=== PATIENT | female | born 1975 | race Caucasian/White ===

== ENCOUNTER 2016-11-26 23:58 | Emergency (ER) | payer MEDICARE, MEDICAID ==
[2016-11-27] MEDS ORDERED: IBUPROFEN 600 MG TABLET PO STA (01:24)
[2016-11-27] MEDS ORDERED: IBUPROFEN 600 MG TABLET PO ONE (01:27)
== END 2016-11-27 01:32 | disposition home or self-care (01) ==
DX: S00.83XA Contusion of other part of head, initial encounter (principal); W20.1XXA Struck by object due to collapse of building, initial encounter; Y93.9 Activity, unspecified; Y92.008 Other place in unspecified non-institutional (private) residence as the place of occurrence of the external cause; Y99.9 Unspecified external cause status; K21.9 Gastro-esophageal reflux disease without esophagitis; F32.9 Major depressive disorder, single episode, unspecified; F20.9 Schizophrenia, unspecified; G89.29 Other chronic pain; M54.9 Dorsalgia, unspecified; Z79.899 Other long term (current) drug therapy
CPT/HCPCS: 99282; 99283; A9270

== ENCOUNTER 2017-06-02 15:07 | Emergency (ER) | payer MEDICARE, MEDICAID ==
[2017-06-02 15:13] VITALS: BP 148/100
[2017-06-02] MEDS ORDERED: LIDOCAINE VISCOUS 2% 15 ML UDC MM STA (15:32)
--- NOTE | 2017-06-02 15:34 | ED Physician Documentation ---
PD HPI HEENT - Stated complaint Stated Complaint: THROAT PX - Chief complaint Chief Complaint: Heent - History obtained from History obtained from: Patient, Family - History of Present Illness Timing - onset: How many days ago (3) Timing - duration: Days (3) Timing - details: Gradual onset, Still present Location: Throat Improves: Nothing Worsens: Swalllowing Associated symptoms: No: Fever, Congestion, Rhinorrhea, Trismus, Unable to swallow, Swollen nodes, Facial swelling, Headache, Cough Similar symptoms before: Has not had sx before Recently seen: Not recently seen - Additional information Additional information: 41 y/o female has developed pain in her throat about 3 days ago. She describes a sharp pain when she swallows and this has not let up. She feels this is deep in the throat and points to her lower neck. She has not had fever, cough or congestion. 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 : None HEENT: None Psych: Depression, Schizophrenia Musculoskeletal: Chronic back pain Derm: None - Past Surgical History Past Surgical History: Yes /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: Breast reduction - Present Medications Home Medications: Ambulatory Orders Medication Instructions Recorded Confirmed OLANZapine [ZyPREXA] 10 mg PO QD 02/10/13 06/02/17 Divalproex Sodium [Depakote] 40 mg PO BID 09/13/14 06/02/17 Omeprazole 1 tab PO DAILY 02/13/16 06/02/17 - Allergies Allergies/Adverse Reactions: Allergies Allergy/AdvReac Type Severity Reaction Status Date / Time No Known Drug Allergies Allergy Verified 11/27/16 00:04 - Social History Does the pt smoke?: No Smoking Status: Never smoker Does the pt drink ETOH?: No Does the pt have substance abuse?: No - Immunizations Immunizations are current?: Yes - POLST Patient has POLST: No PD ED PE NORMAL - Vitals Vital signs reviewed: Yes (hypertensive ) - General General: No acute distress, Well developed/nourished - HEENT HEENT: Atraumatic, PERRL, EOMI, Ears normal, Moist mucous membranes, Pharynx benign, Dentition benign - Neck Neck: Supple, no meningeal sign, No bony TTP, Thyroid normal - Cardiac Cardiac: RRR, No murmur - Respiratory Respiratory: No respiratory distress, Clear bilaterally - Abdomen Abdomen: Soft, Non tender - Back Back: No CVA TTP, No spinal TTP - Derm Derm: Normal color, Warm and dry, No rash - Extremities Extremities: No deformity, No edema - Neuro Neuro: No motor deficit, No sensory deficit - Psych Psych: Normal mood, Normal affect Results - Vitals Vitals: Vital Signs - 24 hr 06/02/17 15:11 Temperature 36.7 C Heart Rate 83 Respiratory 18 Rate Blood Pressure 148/100 H O2 Saturation 98 Oxygen O2 Source Room air PD MEDICAL DECISION MAKING - ED course Complexity details: reviewed results, re-evaluated patient, considered differential, d/w patient, d/w family ED course: 42-year-old schizophrenic female with a history of a pain in her throat when she swallows. She does not recall swallowing anything sharp or abrading her esophagus. She has had this same pain with swallowing without fever congestion or cough for the past 3 days. Here in the emergency department today she is come in and we have given her some viscous lidocaine this relieve the pain temporarily. She is able to describe the pain as being in the throat and points to the area behind the thyroid.My suspicion is that she has an esophageal abrasion and I am not able to get this directly from the history from her I am not able to get this as a history of strep throat or simple pharyngitis either. I suspect she has an esophageal abrasion I discussed with her that we do not have a good way to interrogate that area and we discussed a plan of watchful waiting. Departure - Departure Disposition: 01 Home, Self Care Clinical Impression: Esophageal abrasion Qualifiers: Encounter type: initial encounter Qualified Code(s): S27.818A - Other injury of esophagus (thoracic part), initial encounter Condition: Stable Instructions: ED Foreign Body Esophageal Rslv Follow-Up: Chacha Hardwick ARNP [Primary Care Provider] - Comments: Today we are not able to definitively diagnose the reason for the pain in your throat. The suspicion is that there is an abrasion to the esophagus and this will take several days to heal. Eat soft foods in the next several days and expect the pain to resolve spontaneously. If you have worsening pain or develop fever and cough return to the emergency department for reevaluation.
[2017-06-02] MEDS ORDERED: LIDOCAINE VISCOUS 2% 15 ML UDC MM ONE (15:41)
== END 2017-06-02 16:00 | disposition home or self-care (01) ==
LOC: ED 15:07
DX: S27.818A Other injury of esophagus (thoracic part), initial encounter (principal); X58.XXXA Exposure to other specified factors, initial encounter; K21.9 Gastro-esophageal reflux disease without esophagitis; F20.9 Schizophrenia, unspecified
CPT/HCPCS: 99283

== ENCOUNTER 2017-06-28 16:23 | Emergency (ER) | payer MEDICARE, MEDICAID ==
[2017-06-28 16:29] VITALS: BP 131/97
[2017-06-28] MEDS ORDERED: IBUPROFEN 800 MG TABLET PO STA (16:39)
[2017-06-28] MEDS ORDERED: diphenhydrAMINE 25 MG CAPSULE PO STA (16:39)
--- NOTE | 2017-06-28 16:40 | ED Physician Documentation ---
History of Present Illness - Stated complaint Stated Complaint: BEE STING - Chief complaint Chief Complaint: Wound - History obtained from History obtained from: Patient, Family - History of Present Illness Timing: Today, How many minutes ago (20) Pain level max: 5 Pain level now: 5 - Additonal information Additional information: Patient is a 42-year-old female who presents to the emergency department after sustaining a bee versus a wasp sting versus bite to the right third digit. Mild swelling and erythema. Increased pain. Happened approximately 20 minutes prior to arrival. Has not taken anything for the pain. Better with rest. Worse with movement. No respiratory difficulties. 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 - Present Medications Home Medications: Ambulatory Orders Medication Instructions Recorded Confirmed OLANZapine [ZyPREXA] 10 mg PO QD 02/10/13 06/02/17 Divalproex Sodium [Depakote] 40 mg PO BID 09/13/14 06/02/17 Omeprazole 1 tab PO DAILY 02/13/16 06/02/17 - Allergies Allergies/Adverse Reactions: Allergies Allergy/AdvReac Type Severity Reaction Status Date / Time No Known Drug Allergies Allergy Verified 11/27/16 00:04 - Social History Does the pt smoke?: No Smoking Status: Never smoker Does the pt drink ETOH?: No Does the pt have substance abuse?: No - Immunizations Immunizations are current?: Yes - POLST Patient has POLST: No PD ED PE NORMAL - Vitals Vital signs reviewed: Yes - General General: Alert and oriented X 3, No acute distress - Derm Derm: Warm and dry, No rash - Extremities Extremities: Other (R 3rd digit - mild swelling, erythema, FROM. NVI. ) - Neuro Neuro: Alert and oriented X 3 Results - Vitals Vitals: Vital Signs - 24 hr 06/28/17 16:27 Temperature 36.6 C Heart Rate 101 H Respiratory 16 Rate Blood Pressure 131/97 H O2 Saturation 98 Oxygen O2 Source Room air PD MEDICAL DECISION MAKING - ED course Complexity details: considered differential, d/w patient ED course: Patient with a bee sting to the right third digit. No acute finding of anaphylaxis. Given Benadryl and Motrin. Will continue supportive care and follow-up with her doctor. Appears to be a localized reaction. Patient and family counseled regarding signs and symptoms for which I believe and urgent re- evaluation would be necessary. Patient with good understanding of and agreement to plan and is comfortable going home at this time This document was made in part using voice recognition software. While efforts are made to proofread this document, sound alike and grammatical errors may occur. Departure - Departure Disposition: 01 Home, Self Care Clinical Impression: Bee sting Qualifiers: Encounter type: initial encounter Injury intent: accidental or unintentional Qualified Code(s): T63.441A - Toxic effect of venom of bees, accidental ( unintentional), initial encounter Condition: Good Instructions: ED Bite Insect Follow-Up: Chacha Hardwick ARNP [Primary Care Provider] - Within 1 week Comments: You can use Benadryl for any itching or swelling. You can use Tylenol or Motrin as needed for pain. Return if you worsen.
[2017-06-28] MEDS ORDERED: diphenhydrAMINE 25 MG CAPSULE PO ONE (16:50)
[2017-06-28] MEDS ORDERED: IBUPROFEN 800 MG TABLET PO ONE (16:50)
== END 2017-06-28 16:50 | disposition home or self-care (01) ==
LOC: ED 16:23
DX: T63.441A Toxic effect of venom of bees, accidental (unintentional), initial encounter (principal)
CPT/HCPCS: 99283; A9270

== ENCOUNTER 2017-12-27 21:03 | Emergency (ER) | payer MEDICARE, MEDICAID ==
[2017-12-27] MEDS ORDERED: MAG HYDROX/AL HYDROX/SIMETH 30 ML UDC PO STA (21:39)
[2017-12-27] MEDS ORDERED: FAMOTIDINE 20 MG TABLET PO STA (21:39)
[2017-12-27] MEDS ORDERED: ONDANSETRON 4 MG/2 ML VIAL IVP STA (21:39)
[2017-12-27] MEDS ORDERED: LIDOCAINE VISCOUS 2% 15 ML UDC MM STA (21:39)
[2017-12-27] MEDS ORDERED: SODIUM CHLORIDE 0.9% 1,000 ML IV ONE (21:39)
[2017-12-27] MEDS ORDERED: LORazepam 2 MG/ML VIAL IVP STA (22:00)
--- NOTE | 2017-12-27 22:25 | ED Physician Documentation ---
PD HPI ABD PAIN - Stated complaint Stated Complaint: VOMITING/DIZZINESS - Chief complaint Chief Complaint: Abd Pain - History obtained from History obtained from: Patient - History of Present Illness Timing - onset: Today Timing - details: Gradual onset, Still present Quality: Cramping, Aching, Sharp, Indigestion Location: Epigastric Worsened by: Eating, Palpation Associated symptoms: Nausea, Vomiting, Dizzy. No: Fever, Diarrhea, Constipation Similar symptoms before: Work up / diagnostics, Treatment Recently seen: Not recently seen - Additional information Additional information: Patient is a 42 year old female with a history of abdominal pain, gastritis and anxiety who is presenting to the emergency department for abdominal pain and vomiting. Patient has had this multiple times in the past but not in a long while. Patient denies any fever, chills, diarrhea, change in diet or sick contacts. Review of Systems Constitutional: denies: Fever, Chills Eyes: reports: Reviewed and negative Ears: reports: Reviewed and negative Nose: reports: Reviewed and negative Throat: reports: Reviewed and negative Cardiac: denies: Chest pain / pressure Respiratory: denies: Dyspnea, Cough GI: reports: Abdominal Pain, Nausea, Vomiting. 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 - Present Medications Home Medications: Ambulatory Orders Medication Instructions Recorded Confirmed OLANZapine [ZyPREXA] 10 mg PO QD 02/10/13 06/02/17 Divalproex Sodium [Depakote] 40 mg PO BID 09/13/14 06/02/17 Omeprazole 1 tab PO DAILY 02/13/16 06/02/17 Ondansetron Odt [Zofran] 4 mg TL Q6H PRN #20 tablet 12/28/17 Sucralfate [Carafate] 1 gm PO BID #100 ml 12/28/17 - Allergies Allergies/Adverse Reactions: Allergies Allergy/AdvReac Type Severity Reaction Status Date / Time No Known Drug Allergies Allergy Verified 11/27/16 00:04 - Social History Does the pt smoke?: No Smoking Status: Never smoker Does the pt drink ETOH?: No Does the pt have substance abuse?: No - Immunizations Immunizations are current?: Yes - POLST Patient has POLST: No PD ED PE NORMAL - General General: Alert and oriented X 3, No acute distress - HEENT HEENT: Atraumatic, PERRL - Neck Neck: Supple, no meningeal sign - Cardiac Cardiac: RRR - Respiratory Respiratory: No respiratory distress - Derm Derm: Normal color, No rash - Extremities Extremities: No deformity - Neuro Neuro: Alert and oriented X 3, No motor deficit, Normal speech Eye Opening: Spontaneous PD ED PE EXPANDED - HEENT HEENT: Dry mucous membranes - Abdomen Abdomen: Tender to palpation, Epigastric. No: Rebound, Guarding - Psych Psych: Other (flat affect) Results - Vitals Vitals: Vital Signs - 24 hr 12/27/17 12/27/17 21:05 22:48 Temperature 36.0 C L 36.9 C Heart Rate 88 84 Respiratory 18 15 Rate Blood Pressure 137/95 H 120/90 H O2 Saturation 97 99 Oxygen O2 Source Room air PD MEDICAL DECISION MAKING - ED course Complexity details: reviewed old records, reviewed results, re-evaluated patient , considered differential, d/w patient ED course: Patient was seen and examined at bedside. Patient was well appearing and in no acute distress. IV access was gained and patient was treated with ns bolus, zofran and ativan. Patient's nausea improved and she was treated with pepcid, maalox and viscous lidocaine. Upon re-evaluation patient was well appearing but stated that she still had pain. Patient was treated with toradol and carafate. Patient continued to have no episodes of emesis. patient again was well appearing but stated that she still had pain. Patient was asked if anything had worked for her in the past and she stated dilaudid. Patient was treated with tylenol. Patient remained calm and in no distress. ptaient was tolerating PO and was stable for dishcarge with outpatient follow up. Departure - Departure Disposition: 01 Home, Self Care Clinical Impression: Gastritis, Gastroesophageal reflux disease Condition: Good Instructions: ED Gastritis Follow-Up: Chacha Hardwick ARNP [Primary Care Provider] - Within 3 Days Prescriptions: Ondansetron Odt [Zofran] 4 mg TL Q6H PRN #20 tablet PRN Reason: Nausea / Vomiting Sucralfate [Carafate] 1 gm PO BID #100 ml Comments: Your symptoms today are likely secondary to gastritis. You should try eating a bland diet. You can take zofran as needed for nausea and vomiting. For the gastritis you can take pepcid, maalox, tylenol and carafate. You should follow up with your doctor on friday if your symptoms persist. You may return to the emergency department at any time for new, worsening or uncontrollable symptoms.
[2017-12-27] MEDS ORDERED: SUCRALFATE 1 GM/10 ML UDC PO STA (22:38)
[2017-12-27] MEDS ORDERED: KETOROLAC 60 MG/2 ML VIAL IVP STA (22:50)
[2017-12-27] MEDS ORDERED: DICYCLOMINE 10 MG CAPSULE PO STA (22:51)
[2017-12-27] MEDS ORDERED: PANTOPRAZOLE 40 MG VIAL IVP STA (22:51)
[2017-12-27] MEDS ORDERED: ACETAMINOPHEN 500 MG TABLET PO STA (23:57)
[2017-12-28 00:31] VITALS: BP 117/77
== END 2017-12-28 00:38 | disposition home or self-care (01) ==
LOC: ED 21:03
DX: K21.9 Gastro-esophageal reflux disease without esophagitis (principal); K29.70 Gastritis, unspecified, without bleeding
CPT/HCPCS: 96361; 96374; 96375; 99283; 99284; A9270; J2060

== ENCOUNTER 2018-01-06 08:00 | Outpatient (CLI) | payer MEDICARE, MEDICAID ==
[2018-01-06 19:48] LABS: CHOL/HDL RATIO 2.8 (<4.4); CHOLESTEROL 167 mg/dL; HDL CHOLESTEROL 59 mg/dL; LDL CHOLESTEROL,CALCULATED 76 mg/dL; LDL/HDL RATIO 1.3 (<4.4); VLDL CHOLESTEROL 32 mg/dL
== END 2018-01-06 08:01 ==
LOC: LAB.N 08:00
PROVIDERS: ATTEND Nurse Practitioner Gerontology
DX: Z79.899 Other long term (current) drug therapy (principal)
CPT/HCPCS: 36415; 80061; 83721

== ENCOUNTER 2018-04-29 11:57 | Emergency (ER) | payer MEDICARE, MEDICAID ==
[2018-04-29] MEDS ORDERED: MAG HYDROX/AL HYDROX/SIMETH 30 ML UDC PO STA (12:14)
[2018-04-29] MEDS ORDERED: LIDOCAINE VISCOUS 2% 15 ML UDC MM STA (12:14)
--- NOTE | 2018-04-29 12:17 | ED Physician Documentation ---
PD HPI CHEST PAIN - Stated complaint Stated Complaint: CHEST PX/SOA - Chief complaint Chief Complaint: Cardiac - History obtained from History obtained from: Patient, Family - History of Present Illness Timing - onset: Last night (This is a 42-year-old woman who has frequent episodes of recurrent vomiting. She started vomiting last night after eating a blueberry cup from [employer] and while vomiting symptoms developed sharp nonradiating left-sided anterior chest pain that is not worse with eating now or deep breathing. It does not radiate. She has never had it before. She denies pedal edema, control use, or recent travel. There is no cough. She has not vomited today.) Review of Systems Constitutional: denies: Fever, Chills Respiratory: denies: Dyspnea, Cough GI: reports: Nausea, Vomiting. 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 - Present Medications Home Medications: Ambulatory Orders Medication Instructions Recorded Confirmed OLANZapine [ZyPREXA] 10 mg PO QD 02/10/13 06/02/17 Divalproex Sodium [Depakote] 40 mg PO BID 09/13/14 06/02/17 Omeprazole 1 tab PO DAILY 02/13/16 06/02/17 Ondansetron Odt [Zofran] 4 mg TL Q6H PRN #20 tablet 12/28/17 Sucralfate [Carafate] 1 gm PO BID #100 ml 12/28/17 Cyclobenzaprine [Flexeril] 10 mg PO TID PRN #10 tablet 04/29/18 - Allergies Allergies/Adverse Reactions: Allergies Allergy/AdvReac Type Severity Reaction Status Date / Time No Known Drug Allergies Allergy Verified 11/27/16 00:04 - Social History Does the pt smoke?: No Smoking Status: Never smoker Does the pt drink ETOH?: No Does the pt have substance abuse?: No - Immunizations Immunizations are current?: Yes - POLST Patient has POLST: No PD ED PE NORMAL - Vitals Vital signs reviewed: Yes - General General: Alert and oriented X 3, No acute distress - HEENT HEENT: Pharynx benign - Neck Neck: Supple, no meningeal sign, No bony TTP - Cardiac Cardiac: RRR, No murmur, Other (Tender anterior left chest wall reproducing her pain) - Respiratory Respiratory: No respiratory distress, Clear bilaterally - Abdomen Abdomen: Non tender - Extremities Extremities: No edema, No calf tenderness / cord - Neuro Neuro: Alert and oriented X 3, Normal speech Results - Vitals Vitals: Vital Signs - 24 hr 04/29/18 04/29/18 11:59 12:20 Temperature 36.4 C L Heart Rate 86 90 Respiratory 16 18 Rate Blood Pressure 134/93 H 145/92 H O2 Saturation 98 96 Oxygen O2 Source Room air - EKG (time done) 1202 Rate: Rate (enter#) (90) Rhythm: NSR Rattan: Normal Intervals: Other (VA slightly short) QRS: Normal, Low voltage Ischemia: Non specific changes Computer interpretation: Agree with computer - Labs Labs: Laboratory Tests 04/29/18 04/29/18 04/29/18 12:24 12:24 12:24 WBC 6.8 RBC 5.08 Hgb 12.2 Hct 37.7 MCV 74.1 L MCH 23.9 L MCHC 32.3 RDW 16.4 H Plt Count 294 MPV 7.6 L Neut # (Auto) 3.6 Lymph # (Auto) 2.7 Graham # (Auto) 0.4 Eos # (Auto) 0.0 Baso # (Auto) 0.0 Absolute Nucleated RBC 0.00 Nucleated RBC % 0.0 Sodium 139 Potassium 3.9 Chloride 101 Carbon Dioxide 27 Anion Gap 11.0 BUN 8 Creatinine 0.7 Estimated GFR (MDRD) 91 Glucose 112 H Calcium 9.3 Total Bilirubin 1.1 H AST 33 ALT 33 Alkaline Phosphatase 83 Troponin I < 0.04 Total Protein 8.0 Albumin 4.4 Globulin 3.6 Albumin/Globulin Ratio 1.2 Lipase 26 - Rads (name of study) 2v chest Radiology: EMP read contemporaneously (NAD, DDD/DJD) PD MEDICAL DECISION MAKING - ED course ED course: 42-year-old woman with reproducible left anterior chest wall pain that started during vomiting last night. ACS is unlikely, a single troponin should be predictive given the time course as it has been constant since last night. Also concerning would be Boerhaave syndrome, although she does not seem in extremis, chest x-ray should be predictive as well. We will trial a GI cocktail. She really did not have much change with a GI cocktail, so I suspect she pulled something in her chest wall and she will be discharged on muscle relaxer. Her diagnostics were negative. - Sepsis Event Vital Signs: Vital Signs - 24 hr 04/29/18 04/29/18 11:59 12:20 Temperature 36.4 C L Heart Rate 86 90 Respiratory 16 18 Rate Blood Pressure 134/93 H 145/92 H O2 Saturation 98 96 Oxygen O2 Source Room air Departure - Departure Disposition: 01 Home, Self Care Clinical Impression: Chest wall pain Condition: Good Record reviewed to determine appropriate education?: Yes Instructions: ED Strain Chest Wall Prescriptions: Cyclobenzaprine [Flexeril] 10 mg PO TID PRN #10 tablet PRN Reason: Pain Comments: Your blood pressure was elevated today on check into the emergency department. This does not mean that you have hypertension, it is a common phenomenon to come to the emergency department and have elevated blood pressure. I recommend that you see your primary care physician within the week to have it rechecked when you are feeling better.
[2018-04-29 12:31] LABS: BASOPHILS % (AUTO) 0.6 %; HGB - HEMOGLOBIN 12.2 g/dL (12.0-16.0); LYMPHOCYTES # (AUTO) 2.7 10^3/uL (1.5-3.5); LYMPHOCYTES % (AUTO) 39.9 %; MEAN CORPUSCULAR HEMOGLOBIN 23.9 pg (27.0-31.0); MEAN CORPUSCULAR HGB CONC 32.3 g/dL (32.0-36.0); MEAN CORPUSCULAR VOLUME 74.1 fL (81.0-99.0); MEAN PLATELET VOLUME 7.6 fL (7.9-10.8); MONOCYTES # (AUTO) 0.4 10^3/uL (0.0-1.0); MONOCYTES % (AUTO) 6.3 %; NEUTROPHILS # (AUTO) 3.6 10^3/uL (1.5-6.6); NEUTROPHILS % (AUTO) 53.2 %; PLT - PLATELET COUNT 294 10^3/uL (130-450); RED BLOOD COUNT 5.08 10^6/uL (4.20-5.40); RED CELL DISTRIBUTION WIDTH 16.4 % (12.0-15.0); WHITE BLOOD COUNT 6.8 x10^3/uL (4.8-10.8)
[2018-04-29 12:39] LABS: ALBUMIN 4.4 g/dL (3.2-5.5); ALBUMIN/GLOBULIN RATIO 1.2 (1.0-2.2); BILIRUBIN,TOTAL 1.1 mg/dL (0.2-1.0); CALCIUM 9.3 mg/dL (8.5-10.3); CREATININE 0.7 mg/dL (0.4-1.0)
--- NOTE | 2018-04-29 12:57 | XRAY Report ---
Procedure Date: 04/29/2018 Accession Number: [id number] / [id number] Procedure: XR - Chest 2 View X-Ray CPT Code: 13356 FULL RESULT: EXAM: CHEST RADIOGRAPHY EXAM DATE: 04/29/2018 12:46 PM. CLINICAL HISTORY: Vomiting. Chest pain. COMPARISON: 11/24/2013. TECHNIQUE: 2 views. FINDINGS: Lungs/Pleura: No focal opacities evident. No pleural effusion. No pneumothorax. Normal volumes. Mediastinum: Heart size and mediastinal contour are within normal limits. Other: Degenerative changes of the thoracic spine. No acute osseous abnormalities. IMPRESSION: 1. No acute disease in the chest. RADIA
[2018-04-29 13:43] VITALS: BP 126/92
== END 2018-04-29 13:45 | disposition home or self-care (01) ==
LOC: ED 11:57
DX: R07.89 Other chest pain (principal); R03.0 Elevated blood-pressure reading, without diagnosis of hypertension
CPT/HCPCS: 36415; 71046; 80053; 83690; 84484; 85025; 93005; 99283; A9270

== ENCOUNTER 2018-05-20 01:14 | Emergency (ER) | payer MEDICARE, MEDICAID ==
[2018-05-20] MEDS ORDERED: MAG HYDROX/AL HYDROX/SIMETH 30 ML UDC PO STA (01:45)
[2018-05-20] MEDS ORDERED: ONDANSETRON ODT 4 MG TABLET TL STA (01:45)
[2018-05-20] MEDS ORDERED: LIDOCAINE VISCOUS 2% 15 ML UDC MM STA (01:45)
[2018-05-20] MEDS ORDERED: DICYCLOMINE 10 MG CAPSULE PO STA (02:39)
--- NOTE | 2018-05-20 02:43 | ED Physician Documentation ---
PD HPI ABD PAIN - Stated complaint Stated Complaint: VOMITING,CHEST PAIN - Chief complaint Chief Complaint: Abd Pain - History obtained from History obtained from: Patient - History of Present Illness Timing - onset: Today Timing - details: Gradual onset, Still present Quality: Sharp, Indigestion Location: Epigastric Radiation: Chest Worsened by: Eating Associated symptoms: Nausea, Vomiting, Chest pain. No: Diarrhea, Constipation Similar symptoms before: Work up / diagnostics, Treatment Recently seen: Not recently seen - Additional information Additional information: Patient is a 43 year old female with a history of GERD and gastritis who is presenting to the emergency department for nausea, vomiting and chest pain. patient reports 4 episodes of vomiting this morning and now she has some sub sternal chest pain and epigastric pain. Review of Systems Ten Systems: 10 systems reviewed and negative Constitutional: denies: Fever, Chills Cardiac: reports: Chest pain / pressure GI: reports: Abdominal Pain, Nausea, Vomiting. denies: Constipation, Diarrhea PD PAST MEDICAL HISTORY - Past Medical History Past Medical History: No Cardiovascular: None Respiratory: None Endocrine/Autoimmune: None GI: GERD DREDGE MATE: None : None HEENT: None Psych: Depression, Schizophrenia Musculoskeletal: Chronic back pain Derm: None - Past Surgical History Past Surgical History: Yes /DREDGE MATE: Breast reduction - Present Medications Home Medications: Ambulatory Orders Medication Instructions Recorded Confirmed OLANZapine [ZyPREXA] 10 mg PO QD 02/10/13 06/02/17 Divalproex Sodium [Depakote] 40 mg PO BID 09/13/14 06/02/17 Omeprazole 1 tab PO DAILY 02/13/16 06/02/17 Ondansetron Odt [Zofran] 4 mg TL Q6H PRN #20 tablet 12/28/17 Sucralfate [Carafate] 1 gm PO BID #100 ml 12/28/17 Cyclobenzaprine [Flexeril] 10 mg PO TID PRN #10 tablet 04/29/18 Dicyclomine [Bentyl] 10 mg PO QID #14 capsule 05/20/18 Ondansetron Odt [Zofran] 4 mg TL Q6H PRN #14 tablet 05/20/18 - Allergies Allergies/Adverse Reactions: Allergies Allergy/AdvReac Type Severity Reaction Status Date / Time No Known Drug Allergies Allergy Verified 05/20/18 01:21 - Social History Does the pt smoke?: No Smoking Status: Never smoker Does the pt drink ETOH?: No Does the pt have substance abuse?: No - Immunizations Immunizations are current?: Yes - POLST Patient has POLST: No PD ED PE NORMAL - Vitals Vital signs reviewed: Yes - General General: Alert and oriented X 3, No acute distress - HEENT HEENT: Atraumatic - Cardiac Cardiac: RRR, No murmur - Respiratory Respiratory: No respiratory distress, Clear bilaterally - Abdomen Abdomen: Soft - Derm Derm: Normal color, Warm and dry - Extremities Extremities: No deformity - Neuro Neuro: Alert and oriented X 3, No motor deficit, Normal speech Eye Opening: Spontaneous Motor: Obeys Commands Verbal: Oriented GCS Score: 15 PD ED PE EXPANDED - Abdomen Abdomen: Tender to palpation, Epigastric. No: Rebound, Guarding Results - Vitals Vitals: Vital Signs - 24 hr 05/20/18 01:18 Temperature 36.2 C L Heart Rate 94 Respiratory 17 Rate Blood Pressure 147/99 H O2 Saturation 96 Oxygen O2 Source Room air PD MEDICAL DECISION MAKING - ED course Complexity details: reviewed old records, reviewed results, re-evaluated patient , considered differential, d/w patient ED course: Patient was seen and examined at bedside. patient was in no distress. the chest pain was secondary to GI issues and not cardiac in nature. Patient was treated with zofran and subsequently maalox and viscous lidocaine. patient's pain resolved and she had no episodes of emesis. patient required no further work up and was stable for discharge with outpatient follow up. - Sepsis Event Vital Signs: Vital Signs - 24 hr 05/20/18 01:18 Temperature 36.2 C L Heart Rate 94 Respiratory 17 Rate Blood Pressure 147/99 H O2 Saturation 96 Oxygen O2 Source Room air Departure - Departure Disposition: 01 Home, Self Care Clinical Impression: Gastritis, Gastroesophageal reflux disease Condition: Good Instructions: ED GERD, ED Gastritis Follow-Up: Chacha Hardwick ARNP [Primary Care Provider] - Prescriptions: Dicyclomine [Bentyl] 10 mg PO QID #14 capsule Ondansetron Odt [Zofran] 4 mg TL Q6H PRN #14 tablet PRN Reason: Nausea / Vomiting Comments: Your symptoms today are being caused by gastritis and acid reflux. You should take the zofran as needed for nausea and maalox for the acid reflux. You can take tylenol for abdominal pain and bentyl for abdominal spasm. You should avoid spicey foods, and acidic foods and eat small meals. You should avoid eating before lying down. You should follow up with your doctor if your symptoms persist. You may return to the emergency department at any time for new, worsening or uncontrollable symptoms.
[2018-05-20 02:53] VITALS: BP 146/94
== END 2018-05-20 02:55 | disposition home or self-care (01) ==
LOC: ED 01:14
DX: K29.70 Gastritis, unspecified, without bleeding (principal); K21.9 Gastro-esophageal reflux disease without esophagitis
CPT/HCPCS: 99283; A9270; Q0162

== ENCOUNTER 2018-05-22 14:59 | Emergency (ER) | payer MEDICARE, MEDICAID ==
[2018-05-22] MEDS ORDERED: MAG HYDROX/AL HYDROX/SIMETH 30 ML UDC PO STA (15:18)
[2018-05-22] MEDS ORDERED: LIDOCAINE VISCOUS 2% 15 ML UDC MM STA (15:18)
[2018-05-22] MEDS ORDERED: SODIUM CHLORIDE 0.9% 1,000 ML IV ONE (15:19)
[2018-05-22] MEDS ORDERED: ONDANSETRON 4 MG/2 ML VIAL IVP STA (15:19)
--- NOTE | 2018-05-22 15:23 | ED Physician Documentation ---
PD HPI ABD PAIN - Stated complaint Stated Complaint: VOMITING - Chief complaint Chief Complaint: General - History obtained from History obtained from: Patient - History of Present Illness Timing - onset: How many days ago (2 or 3) Timing - details: Still present Quality: Pain Location: Epigastric Associated symptoms: Nausea, Vomiting. No: Fever, Diarrhea, Dysuria Similar symptoms before: Diagnosis (GERD) Recently seen: Emergency Dept (2 days ago.) - Additional information Additional information: The patient is a 43-year-old female who presents with vomiting that started 2 or 3 days ago and has persisted. She has had multiple episodes of vomiting today. She reports epigastric abdominal pain. She denies fever, diarrhea, or dysuria. She was seen here 2 days ago with similar symptoms. She was treated with Zofran and GI cocktail with improvement of her symptoms at that time. She was discharged with prescriptions for Zofran and Bentyl. She has been taking those medications without relief. Her past medical history is significant for gastroesophageal reflux, for which she is on omeprazole. Review of Systems Constitutional: denies: Fever Nose: denies: Congestion Throat: denies: Sore throat Cardiac: denies: Chest pain / pressure Respiratory: denies: Dyspnea, Cough GI: reports: Abdominal Pain, Nausea, Vomiting. denies: Diarrhea : reports: LMP (uncertain). denies: Dysuria, Vaginal bleeding Skin: denies: Rash Musculoskeletal: denies: Back pain Neurologic: denies: Headache PD PAST MEDICAL HISTORY - Past Medical History Cardiovascular: None Respiratory: None Endocrine/Autoimmune: None GI: GERD LINEMAN: None : None HEENT: None Psych: Depression, Schizophrenia Musculoskeletal: Chronic back pain Derm: None - Past Surgical History Past Surgical History: Yes /LINEMAN: Breast reduction - Present Medications Home Medications: Ambulatory Orders Medication Instructions Recorded Confirmed OLANZapine [ZyPREXA] 10 mg PO QD 02/10/13 06/02/17 Divalproex Sodium [Depakote] 40 mg PO BID 09/13/14 06/02/17 Omeprazole 1 tab PO DAILY 02/13/16 06/02/17 Ondansetron Odt [Zofran] 4 mg TL Q6H PRN #20 tablet 12/28/17 Sucralfate [Carafate] 1 gm PO BID #100 ml 12/28/17 Cyclobenzaprine [Flexeril] 10 mg PO TID PRN #10 tablet 04/29/18 Dicyclomine [Bentyl] 10 mg PO QID #14 capsule 05/20/18 Ondansetron Odt [Zofran] 4 mg TL Q6H PRN #14 tablet 05/20/18 Promethazine [Phenergan] 25 - 50 mg PO Q6H PRN #10 tab 05/22/18 Tramadol HCl [Ultram] 50 mg PO Q6HR PRN #15 tablet 05/22/18 - Allergies Allergies/Adverse Reactions: Allergies Allergy/AdvReac Type Severity Reaction Status Date / Time No Known Drug Allergies Allergy Verified 05/22/18 15:07 - Social History Does the pt smoke?: No Smoking Status: Never smoker Does the pt drink ETOH?: No Does the pt have substance abuse?: No - Immunizations Immunizations are current?: Yes - POLST Patient has POLST: No PD ED PE NORMAL - Vitals Vital signs reviewed: Yes (Initially hypertensive.) - General General: Alert and oriented X 3, Well developed/nourished - HEENT HEENT: Atraumatic, Moist mucous membranes, Pharynx benign - Neck Neck: Supple, no meningeal sign, No adenopathy - Cardiac Cardiac: RRR, No murmur - Respiratory Respiratory: No respiratory distress, Clear bilaterally - Abdomen Abdomen: Normal bowel sounds, Soft, Other (Tenderness to palpation in the epigastric region, without rebound tenderness or guarding.) - Back Back: No CVA TTP - Derm Derm: No rash - Extremities Extremities: No edema, No calf tenderness / cord - Neuro Neuro: Alert and oriented X 3, No motor deficit, Normal speech Results - Vitals Vitals: Vital Signs - 24 hr 05/22/18 05/22/18 15:04 17:32 Temperature 36.6 C Heart Rate 92 80 Respiratory 16 16 Rate Blood Pressure 138/92 H 124/89 H O2 Saturation 97 97 Oxygen O2 Source Room air - Labs Labs: Laboratory Tests 05/22/18 05/22/18 05/22/18 15:32 15:32 16:21 WBC 7.6 RBC 5.10 Hgb 12.4 Hct 37.9 MCV 74.4 L MCH 24.3 L MCHC 32.7 RDW 16.5 H Plt Count 284 MPV 8.0 Neut # (Auto) 5.0 Lymph # (Auto) 2.1 [place] # (Auto) 0.4 Eos # (Auto) 0.0 Baso # (Auto) 0.1 Absolute Nucleated RBC 0.00 Nucleated RBC % 0.0 Sodium 137 Potassium 3.7 Chloride 102 Carbon Dioxide 25 Anion Gap 10.0 BUN 11 Creatinine 1.0 Estimated GFR (MDRD) 60 L Glucose 112 H Calcium 9.4 Total Bilirubin 1.0 AST 41 ALT 39 Alkaline Phosphatase 80 Total Protein 8.2 Albumin 4.6 Globulin 3.6 Albumin/Globulin Ratio 1.3 Lipase 29 Urine Color YELLOW Urine Clarity HAZY Urine pH 6.5 Ur Specific [place] 1.025 Urine Protein 100 H Urine Glucose (UA) NEGATIVE Urine Ketones TRACE Urine Occult Blood NEGATIVE Urine Nitrite NEGATIVE Urine Bilirubin NEGATIVE Urine Urobilinogen 1 (NORMAL) Ur Leukocyte Esterase NEGATIVE Urine RBC 0-5 Urine WBC 6-10 H Ur Squamous Epith Cells MANY Squamous H Urine Bacteria Many H Ur Microscopic Review INDICATED Urine Culture Comments NOT INDICATED Urine HCG, Qual NEGATIVE PD MEDICAL DECISION MAKING - ED course Complexity details: reviewed old records, reviewed results, re-evaluated patient , considered differential, d/w patient, d/w family ED course: 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 She admits to drinking large quantities of diet cola, and this is a likely exacerbating factor in her symptoms. Her presentation does not suggest biliary colic, pancreatitis, or bowel obstruction. CBC, chemistry panel, and urinalysis are unremarkable. Treatment in the emergency department included administration of GI cocktail, which did not relieve her discomfort. Further treatment included administration of normal saline 1 L IV, Zofran 4 mg IV, Ofirmev 1000 mg IV, and famotidine 20 mg IV. Her nausea improved but her epigastric discomfort continued. Fentanyl 50 mcg was administered IV, with significant improvement of her discomfort. Repeat abdominal exam is benign. She is being discharged with prescription for Phenergan and for Ultram, 15 tablets. I discussed with her and her family the diagnosis, symptomatic treatment and outpatient follow-up, as well as potentially worrisome signs or symptoms that should prompt reevaluation in the emergency department. - Sepsis Event Vital Signs: Vital Signs - 24 hr 05/22/18 05/22/18 15:04 17:32 Temperature 36.6 C Heart Rate 92 80 Respiratory 16 16 Rate Blood Pressure 138/92 H 124/89 H O2 Saturation 97 97 Oxygen O2 Source Room air Departure - Departure Disposition: 01 Home, Self Care Clinical Impression: Epigastric abdominal pain Condition: Stable Instructions: ED PUD Vs Gastritis Follow-Up: Chacha Hardwick ARNP [Primary Care Provider] - Prescriptions: Tramadol HCl [Ultram] 50 mg PO Q6HR PRN #15 tablet PRN Reason: Abdominal Pain Promethazine [Phenergan] 25 - 50 mg PO Q6H PRN #10 tab PRN Reason: Nausea / Vomiting Comments: Continue omeprazole as previously prescribed. You can use Phenergan as prescribed if needed for nausea. You can use Ultram as prescribed if needed for pain. Follow up with your primary physician within 1-2 weeks. Call to schedule an appointment. Return to the emergency department if you develop increasing abdominal pain, persistent vomiting, or otherwise worsening symptoms. Discharge Date/Time: 05/22/18 18:27
[2018-05-22 15:40] LABS: BASOPHILS # (AUTO) 0.1 10^3/uL (0.0-0.1); BASOPHILS % (AUTO) 0.7 %; HGB - HEMOGLOBIN 12.4 g/dL (12.0-16.0); LYMPHOCYTES # (AUTO) 2.1 10^3/uL (1.5-3.5); LYMPHOCYTES % (AUTO) 27.1 %; MEAN CORPUSCULAR HEMOGLOBIN 24.3 pg (27.0-31.0); MEAN CORPUSCULAR HGB CONC 32.7 g/dL (32.0-36.0); MEAN CORPUSCULAR VOLUME 74.4 fL (81.0-99.0); MONOCYTES # (AUTO) 0.4 10^3/uL (0.0-1.0); MONOCYTES % (AUTO) 5.9 %; NEUTROPHILS % (AUTO) 66.3 %; PLT - PLATELET COUNT 284 10^3/uL (130-450); RED CELL DISTRIBUTION WIDTH 16.5 % (12.0-15.0); WHITE BLOOD COUNT 7.6 x10^3/uL (4.8-10.8)
[2018-05-22 15:52] LABS: ALBUMIN 4.6 g/dL (3.2-5.5); ALBUMIN/GLOBULIN RATIO 1.3 (1.0-2.2); CALCIUM 9.4 mg/dL (8.5-10.3); TOTAL PROTEIN 8.2 g/dL (6.7-8.2)
[2018-05-22 16:25] LABS: BILIRUBIN,URINE NEGATIVE (NEGATIVE); GLUCOSE, URINE (UA) NEGATIVE (NEGATIVE); KETONES,URINE (UA) TRACE mg/dL (NEGATIVE); LEUKOCYTE ESTERASE, URINE NEGATIVE (NEGATIVE); NITRITE,URINE NEGATIVE (NEGATIVE); OCCULT BLOOD,URINE NEGATIVE (NEGATIVE); PH,URINE 6.5 PH (5.0-7.5); PROTEIN,URINE 100 mg/dL (NEGATIVE); UROBILINOGEN,URINE 1 (NORMAL) E.U./dL (NORMAL)
[2018-05-22 16:28] LABS: CLARITY,URINE HAZY (CLEAR); HCG UR QUAL NEGATIVE
[2018-05-22] MEDS ORDERED: FAMOTIDINE 20 MG/50 ML 50 ML IV ONE (16:28)
[2018-05-22] MEDS ORDERED: ACETAMINOPHEN 1,000 MG/100 ML 100 ML IV STA (16:31)
[2018-05-22 16:37] LABS: BACTERIA,URINE Many /HPF (None Seen); RBC,URINE 0-5 /HPF (0-5); SQUAMOUS EPITHELIAL CELL,UR MANY Squamous (<= Few)
[2018-05-22 17:33] VITALS: BP 124/89
[2018-05-22] MEDS ORDERED: fentaNYL 100 MCG/2 ML VIAL IVP STA (17:42)
== END 2018-05-22 18:27 | disposition home or self-care (01) ==
LOC: ED 14:59
DX: R10.13 Epigastric pain (principal)
CPT/HCPCS: 36415; 80053; 81001; 81025; 83690; 85025; 96361; 96365; 96367; 96375; 99283; 99284; A9270; J0131; 81003; 87086

== ENCOUNTER 2018-07-18 01:02 | Emergency (ER) | payer MEDICARE, MEDICAID ==
--- NOTE | 2018-07-18 01:22 | ED Physician Documentation ---
PD HPI LOWER EXT INJURY - Stated complaint Stated Complaint: RT LEG INJURY - Chief complaint Chief Complaint: Trauma Ext - History obtained from History obtained from: Patient - History of Present Illness PD HPI LOW EXT INJURY LOCATION: Right, Ankle, Foot Type of injury: Fall (she says was taking cat out and she twisted ankle/foot and fell. Denies other injury. Pain at dorsolateral proximal foot and ankle.) Where injury occurred: Home Timing - onset: Today Timing - details: Abrupt onset, Still present Worsened by: Moving, Palpating Associated symptoms: Swelling. No: Weakness, Numbness Recently seen: Not recently seen Review of Systems Skin: denies: Abrasion (s), Laceration (s) Musculoskeletal: denies: Neck pain, Back pain Neurologic: reports: Numbness (generally in feet due to neuropathy.). 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: Breast reduction - Present Medications Home Medications: Ambulatory Orders Medication Instructions Recorded Confirmed OLANZapine [ZyPREXA] 10 mg PO QD 02/10/13 07/18/18 Divalproex Sodium [Depakote] 40 mg PO BID 09/13/14 07/18/18 Omeprazole 1 tab PO DAILY 02/13/16 07/18/18 Ondansetron Odt [Zofran] 4 mg TL Q6H PRN #20 tablet 12/28/17 07/18/18 Sucralfate [Carafate] 1 gm PO BID #100 ml 12/28/17 07/18/18 Cyclobenzaprine [Flexeril] 10 mg PO TID PRN #10 tablet 04/29/18 07/18/18 Dicyclomine [Bentyl] 10 mg PO QID #14 capsule 05/20/18 07/18/18 Ondansetron Odt [Zofran] 4 mg TL Q6H PRN #14 tablet 05/20/18 07/18/18 Promethazine [Phenergan] 25 - 50 mg PO Q6H PRN #10 tab 05/22/18 07/18/18 Tramadol HCl [Ultram] 50 mg PO Q6HR PRN #15 tablet 05/22/18 07/18/18 - Allergies Allergies/Adverse Reactions: Allergies Allergy/AdvReac Type Severity Reaction Status Date / Time No Known Drug Allergies Allergy Verified 07/18/18 01:17 - Social History Does the pt smoke?: No Smoking Status: Never smoker Does the pt drink ETOH?: No Does the pt have substance abuse?: No - Immunizations Immunizations are current?: Yes - POLST Patient has POLST: No PD ED PE NORMAL - Vitals Vital signs reviewed: Yes - General General: Alert and oriented X 3, No acute distress, Well developed/nourished - HEENT HEENT: Atraumatic - Back Back: No spinal TTP - Derm Derm: Normal color, Warm and dry - Extremities Extremities: Other (right lateral ankle and dorsolateral proximal foot with some tenderness, no obvious deformity. Achilles not tender. Medial ankle not tander. ) - Neuro Neuro: Alert and oriented X 3, No motor deficit, No sensory deficit, Normal speech Results - Vitals Vitals: Vital Signs - 24 hr 07/18/18 07/18/18 01:05 02:13 Temperature 36.3 C L Heart Rate 99 88 Respiratory 18 15 Rate Blood Pressure 135/101 H 119/84 H O2 Saturation 98 98 Oxygen O2 Source Room air - Rads (name of study) right ankle Radiology: Prelim report reviewed (possible superior posterior calcaneal fracture), EMP read contemporaneously (no fracture) PD MEDICAL DECISION MAKING - ED course Complexity details: reviewed results (I think the small lucencies seen by the radiologist in the posterior calcaneus is not a fracture. She is not tender in that area.) Departure - Departure Disposition: 01 Home, Self Care Clinical Impression: Ankle injury Qualifiers: Encounter type: initial encounter Laterality: right Qualified Code(s): S99.911A - Unspecified injury of right ankle, initial encounter Condition: Stable Record reviewed to determine appropriate education?: Yes Instructions: ED Sprain Ankle W X Ray Follow-Up: Chacha Hardwick ARNP [Primary Care Provider] - Comments: I do not see any fractures on x-ray. Presume a foot and ankle sprain. He can use the ankle brace when up and around. Tylenol or ibuprofen if needed for pains. This should improve over the next several days to week or so. Discharge Date/Time: 07/18/18 02:28
[2018-07-18] MEDS ORDERED: HYDROcod/ACETAM 5/325 MG TABLET PO STA (01:28)
[2018-07-18 02:16] VITALS: BP 119/84
--- NOTE | 2018-07-18 02:20 | XRAY Report ---
Reason: fell/twisted ankle and foot Procedure Date: 07/18/2018 Accession Number: [id number] / [id number] Procedure: XR - Ankle 3 View RT CPT Code: FULL RESULT: EXAM: RIGHT ANKLE RADIOGRAPHY EXAM DATE: 07/18/2018 02:08 AM. CLINICAL HISTORY: Fell/twisted ankle and foot. COMPARISON: None. TECHNIQUE: 3 views. FINDINGS: Bones: There is a lucency through the posterior superior calcaneus, only seen on the lateral view, suspicious for a small fracture. Joints: Normal. No effusion. No subluxations. The ankle mortise is normally aligned. Soft Tissues: Soft tissue swelling. No foreign body. IMPRESSION: Small calcaneal fracture. RADIA
== END 2018-07-18 02:28 | disposition home or self-care (01) ==
LOC: ED 01:02
DX: S99.911A Unspecified injury of right ankle, initial encounter (principal); X50.1XXA Overexertion from prolonged static or awkward postures, initial encounter; W18.30XA Fall on same level, unspecified, initial encounter; G62.9 Polyneuropathy, unspecified
CPT/HCPCS: 73610; 99283; A9270

== ENCOUNTER 2018-11-22 21:21 | Emergency (ER) | payer MEDICARE, MEDICAID ==
--- NOTE | 2018-11-22 22:53 | ED Physician Documentation ---
PD HPI NVD - Stated complaint Stated Complaint: VOM/LAINA - Chief complaint Chief Complaint: Abd Pain - History obtained from History obtained from: Patient - History of Present Illness Timing - onset: How many days ago (2-3) Timing - details: Gradual onset, Waxing and waning Pain level max: 0 Pain level now: 0 Associated symptoms: No: Fever, Abdominal pain Contributing factors: Sick contact (family member with same symptoms is also registered in ED at this time) Improved by: Other (nothing) Worsened by: Eating Similar symptoms before: Has not had sx before - Additonal information Additional information: c/o 2-3 days of nausea, vomiting, diarrhea. Difficulty tolerating any PO today Review of Systems Constitutional: denies: Fever Cardiac: reports: Reviewed and negative Respiratory: reports: Reviewed and negative GI: reports: Nausea, Vomiting, Diarrhea. 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 - Present Medications Home Medications: Ambulatory Orders Medication Instructions Recorded Confirmed OLANZapine [ZyPREXA] 10 mg PO QD 02/10/13 07/18/18 Divalproex Sodium [Depakote] 40 mg PO BID 09/13/14 07/18/18 Omeprazole 1 tab PO DAILY 02/13/16 07/18/18 Ondansetron Odt [Zofran] 4 mg TL Q6H PRN #20 tablet 12/28/17 07/18/18 Sucralfate [Carafate] 1 gm PO BID #100 ml 12/28/17 07/18/18 Cyclobenzaprine [Flexeril] 10 mg PO TID PRN #10 tablet 04/29/18 07/18/18 Dicyclomine [Bentyl] 10 mg PO QID #14 capsule 05/20/18 07/18/18 Ondansetron Odt [Zofran] 4 mg TL Q6H PRN #14 tablet 05/20/18 07/18/18 Promethazine [Phenergan] 25 - 50 mg PO Q6H PRN #10 tab 05/22/18 07/18/18 Tramadol HCl [Ultram] 50 mg PO Q6HR PRN #15 tablet 05/22/18 07/18/18 Diphenoxylate/Atropine [Lomotil] 1 each PO QID PRN #7 tablet 11/23/18 Ondansetron Odt [Zofran] 4 mg TL Q6H PRN #14 tablet 11/23/18 - Allergies Allergies/Adverse Reactions: Allergies Allergy/AdvReac Type Severity Reaction Status Date / Time No Known Drug Allergies Allergy Verified 11/22/18 21:33 - Social History Does the pt smoke?: No Smoking Status: Never smoker Does the pt drink ETOH?: No Does the pt have substance abuse?: No - Immunizations Immunizations are current?: Yes - POLST Patient has POLST: No PD ED PE NORMAL - Vitals Vital signs reviewed: Yes - General General: Alert and oriented X 3, No acute distress, Well developed/nourished - HEENT HEENT: Moist mucous membranes - Cardiac Cardiac: RRR, No murmur - Respiratory Respiratory: No respiratory distress, Clear bilaterally - Abdomen Abdomen: Normal bowel sounds, Soft, Non tender, Non distended, No organomegaly Results - Vitals Vitals: Oxygen O2 Source Room air PD MEDICAL DECISION MAKING - ED course Complexity details: re-evaluated patient, considered differential, d/w patient ED course: Appears well hydrated in ED; tolerated PO subsequent to PO zofran TL and lomotil Departure - Departure Disposition: 01 Home, Self Care Clinical Impression: Gastroenteritis Condition: Good Instructions: ED Gastroenteritis Viral Follow-Up: José Ruelas PA-C [Primary Care Provider] - (2-3 days if symptoms persist) Prescriptions: Diphenoxylate/Atropine [Lomotil] 1 each PO QID PRN #7 tablet PRN Reason: Diarrhea Ondansetron Odt [Zofran] 4 mg TL Q6H PRN #14 tablet PRN Reason: Nausea / Vomiting Discharge Date/Time: 11/23/18 00:20
[2018-11-22] MEDS ORDERED: DIPHENOX/ATROPINE 2.5/0.025 MG TABLET PO STA (23:13)
[2018-11-22] MEDS ORDERED: ONDANSETRON ODT 4 MG TABLET TL STA (23:13)
[2018-11-23 00:16] VITALS: BP 141/100
== END 2018-11-23 00:20 | disposition home or self-care (01) ==
LOC: ED 21:21
DX: K52.9 Noninfective gastroenteritis and colitis, unspecified (principal)
CPT/HCPCS: 99283; A9270; Q0162

== ENCOUNTER 2019-01-14 00:22 | Emergency (ER) | payer MEDICARE, MEDICAID ==
[2019-01-14 00:33] VITALS: BP 144/89
--- NOTE | 2019-01-14 01:27 | ED Physician Documentation ---
History of Present Illness - Stated complaint Stated Complaint: R/L LEG CRAMPING - Chief complaint Chief Complaint: Ext Problem - History obtained from History obtained from: Patient - History of Present Illness Timing: Yesterday Pain level now: 4 Improved by: rest Worsened by: standing/weight-bearing - Additonal information Additional information: c/o bilateral leg pain since yesterday, from hips to lower legs. Denies injury, denies h/o similar symptoms. Review of Systems Constitutional: denies: Fever, Chills, Sweats Cardiac: reports: Reviewed and negative Respiratory: reports: Reviewed and negative : denies: Dysuria, Frequency, Incontinent Musculoskeletal: reports: Back pain, Extremity pain. 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 : None HEENT: None Psych: Depression, Schizophrenia Musculoskeletal: Chronic back pain Derm: None - Past Surgical History Past Surgical History: Yes /LINK MACHINE OPERATOR: Breast reduction - Present Medications Home Medications: Ambulatory Orders Medication Instructions Recorded Confirmed OLANZapine [ZyPREXA] 10 mg PO QD 02/10/13 07/18/18 Divalproex Sodium [Depakote] 40 mg PO BID 09/13/14 07/18/18 Omeprazole 1 tab PO DAILY 02/13/16 07/18/18 Ondansetron Odt [Zofran] 4 mg TL Q6H PRN #20 tablet 12/28/17 07/18/18 Sucralfate [Carafate] 1 gm PO BID #100 ml 12/28/17 07/18/18 Cyclobenzaprine [Flexeril] 10 mg PO TID PRN #10 tablet 04/29/18 07/18/18 Dicyclomine [Bentyl] 10 mg PO QID #14 capsule 05/20/18 07/18/18 Ondansetron Odt [Zofran] 4 mg TL Q6H PRN #14 tablet 05/20/18 07/18/18 Promethazine [Phenergan] 25 - 50 mg PO Q6H PRN #10 tab 05/22/18 07/18/18 Tramadol HCl [Ultram] 50 mg PO Q6HR PRN #15 tablet 05/22/18 07/18/18 Diphenoxylate/Atropine [Lomotil] 1 each PO QID PRN #7 tablet 11/23/18 Ondansetron Odt [Zofran] 4 mg TL Q6H PRN #14 tablet 11/23/18 Cyclobenzaprine [Flexeril] 10 mg PO TID PRN #20 tablet 01/14/19 Hydrocodone/Acetaminophen 1 - 2 each PO Q6H PRN #14 tablet 01/14/19 [Hydrocodon-Acetaminophen 5-325] - Allergies Allergies/Adverse Reactions: Allergies Allergy/AdvReac Type Severity Reaction Status Date / Time No Known Drug Allergies Allergy Verified 01/14/19 00:33 - Social History Does the pt smoke?: No Smoking Status: Never smoker Does the pt drink ETOH?: No Does the pt have substance abuse?: No - Immunizations Immunizations are current?: Yes - POLST Patient has POLST: No PD ED PE NORMAL - Vitals Vital signs reviewed: Yes - General General: Alert and oriented X 3, No acute distress, Well developed/nourished - Respiratory Respiratory: No respiratory distress - Back Back: No CVA TTP, Other (mild lower lumbar tenderness to palpation without swelling or deformity) - Derm Derm: Normal color, Warm and dry, No rash - Extremities Extremities: No tenderness to palpate, Normal ROM s pain, No edema, No calf tenderness / cord Results - Vitals Vitals: Vital Signs - 24 hr 01/14/19 01/14/19 00:31 01:55 Temperature 36.7 C Heart Rate 84 Respiratory 17 17 Rate Blood Pressure 144/89 H O2 Saturation 99 Oxygen O2 Source Room air PD MEDICAL DECISION MAKING - ED course Complexity details: considered differential, d/w patient ED course: HPI/ROS/PE do not suggest an emergent condition that would indicate or benefit from emergent testing. Will prescribe pain medication and antispasmodic for symptomatic relief until she can f/u with PMD, but instructed to return to ED if worse in any way Departure - Departure Disposition: 01 Home, Self Care Clinical Impression: Leg pain, bilateral Condition: Good Instructions: ED Muscle Pain Leg Cramps Follow-Up: José Ruelas PA-C [Primary Care Provider] - Within 1 week Prescriptions: Cyclobenzaprine [Flexeril] 10 mg PO TID PRN #20 tablet PRN Reason: Spasms Hydrocodone/Acetaminophen [Hydrocodon-Acetaminophen 5-325] 1 - 2 each PO Q6H PRN #14 tablet PRN Reason: pain Discharge Date/Time: 01/14/19 01:58
[2019-01-14] MEDS ORDERED: CYCLOBENZAPRINE 10 MG TABLET PO STA (01:46)
[2019-01-14] MEDS ORDERED: HYDROcod/ACETAM 5/325 MG TABLET PO STA (01:46)
== END 2019-01-14 01:58 | disposition home or self-care (01) ==
LOC: ED 00:22
DX: M79.662 Pain in left lower leg (principal); M79.661 Pain in right lower leg
CPT/HCPCS: 99282; 99283; A9270

== ENCOUNTER 2019-04-07 15:07 | Outpatient (CLI) | payer MEDICARE, MEDICAID ==
--- NOTE | 2019-04-08 10:10 | Ultrasound Report ---
Reason: ABNORMAL UTERINE BLEEDING Procedure Date: 04/07/2019 Accession Number: [id number] / [id number] Procedure: US - Pelvic w/Transvaginal CPT Code: FULL RESULT: EXAM: PELVIC ULTRASOUND EXAM DATE: 04/07/2019 03:46 PM. CLINICAL HISTORY: Abnormal uterine bleeding. COMPARISON: None. TECHNIQUE: Realtime transabdominal pelvic scan performed to identify the uterus and adnexa and as an overview of other pelvic structures, followed by transvaginal scan to provide greater detail of the uterus and adnexa, with static image documentation. FINDINGS: Uterus: 10.2 x 4.6 x 5.3 cm, volume 131 cc. Anteverted position. Normal overall size and echotexture. Masses: None. Endometrium: 12 mm. Secretory type appearance. Center within the submucosal endometrium close to the endocervix anteriorly is suggestion of a small feeding vessel which does not extend into the endometrium. No definite mass is identified. Cervix: Unremarkable. Right and Left Ovary: Not visualized transabdominally or transvaginally despite best attempts. Free Fluid: None. Other: None. IMPRESSION: Questionable feeding vessel without mass visualized in the submucosal myometrium as described. Nonvisualization of the ovaries. 12 mm thick echogenic endometrium, secretory type appearance. RADIA
== END 2019-04-07 15:08 | disposition home or self-care (01) ==
LOC: DI 15:07
PROVIDERS: ATTEND Registered Nurse
DX: N93.9 Abnormal uterine and vaginal bleeding, unspecified (principal)
CPT/HCPCS: 76830; 76856

== ENCOUNTER 2019-04-07 15:07 | Outpatient (CLI) | payer MEDICARE, MEDICAID ==
--- NOTE | 2019-04-08 08:52 | Mammography Report ---
Reason: PREVENTIVE CARE,MAMMOGRAPHIC SCREENING FOR BREAST Procedure Date: 04/07/2019 Accession Number: [id number] / [id number] Procedure: KHANH - Screening Mammo w/Rodrigo CPT Code: FULL RESULT: EXAM: Screening Mammo w/Rodrigo DATE: 04/07/2019 4:20 PM CLINICAL HISTORY: History of early menses. History of breast reduction. TECHNIQUE: (B) - Bilateral CC and MLO views were obtained. COMPARISON: None PARENCHYMAL PATTERN: (F) - The breast(s) demonstrate(s) diffuse fatty replacement. FINDINGS: Postsurgical changes consistent with provided history of breast reduction are noted including coarse calcifications, typically benign. There are no suspicious masses, calcifications, or areas of distortion. IMPRESSION: Benign findings. BI-RADS category 2. RECOMMENDATION: (ANNUAL) - Recommend routine annual screening mammography. BI-RADS CATEGORY: (2) - Benign Findings. STANDARD QUALIFYING STATEMENTS: 1. This examination was not reviewed with the aid of Computer-Aided Detection (CAD). 2. A negative or benign imaging report should not preclude biopsy if clinically suspicious findings are present. 3. Dense breasts may obscure an underlying neoplasm. 4. This examination was reviewed with the aid of 3D breast imaging (tomosynthesis).
== END 2019-04-07 15:08 | disposition home or self-care (01) ==
LOC: DI 15:07
PROVIDERS: ATTEND Registered Nurse
DX: Z00.00 Encounter for general adult medical examination without abnormal findings (principal); Z12.31 Encounter for screening mammogram for malignant neoplasm of breast
CPT/HCPCS: 77063; 77067

== ENCOUNTER 2019-04-23 | Outpatient (CLI) | payer MEDICARE, MEDICAID | END 2019-04-23 23:59 | disposition home or self-care (01) | DX: N89.8 Other specified noninflammatory disorders of vagina (principal) ==

== ENCOUNTER 2019-07-07 12:33 | Outpatient (CLI) | payer MEDICARE, MEDICAID ==
[2019-07-07 19:34] LABS: HB2 TOTAL 12.8 g/dL; HEMOGLOBIN A1C 0.53 g/dL; HEMOGLOBIN A1C % 5.9 % (4.6-6.2)
== END 2019-07-07 23:59 | disposition home or self-care (01) ==
LOC: LAB.N 12:33
PROVIDERS: ATTEND Physician Assistant Medical
DX: R73.9 Hyperglycemia, unspecified (principal)
CPT/HCPCS: 36415; 83036

== ENCOUNTER 2019-07-08 18:42 | Emergency (ER) | payer MEDICARE, MEDICAID ==
[2019-07-08 19:00] VITALS: BP 139/92
[2019-07-08 19:46] LABS: BASOPHILS # (AUTO) 0.1 10^3/uL (0.0-0.1); BASOPHILS % (AUTO) 0.6 %; EOSINOPHILS # (AUTO) 0.1 10^3/uL (0.0-0.7); EOSINOPHILS % (AUTO) 1.5 %; HGB - HEMOGLOBIN 12.4 g/dL (12.0-16.0); LYMPHOCYTES # (AUTO) 3.3 10^3/uL (1.5-3.5); LYMPHOCYTES % (AUTO) 41.5 %; MEAN CORPUSCULAR HEMOGLOBIN 25.4 pg (27.0-31.0); MEAN PLATELET VOLUME 9.7 fL (7.9-10.8); MONOCYTES # (AUTO) 0.5 10^3/uL (0.0-1.0); MONOCYTES % (AUTO) 6.8 %; NEUTROPHILS # (AUTO) 3.9 10^3/uL (1.5-6.6); NEUTROPHILS % (AUTO) 49.3 %; PLT - PLATELET COUNT 305 10^3/uL (130-450); RED BLOOD COUNT 4.88 10^6/uL (4.20-5.40); RED CELL DISTRIBUTION WIDTH 14.4 % (12.0-15.0); WHITE BLOOD COUNT 7.9 x10^3/uL (4.8-10.8)
[2019-07-08 19:51] LABS: ALBUMIN 4.3 g/dL (3.2-5.5); BILIRUBIN,TOTAL 0.5 mg/dL (0.2-1.0); CALCIUM 9.4 mg/dL (8.5-10.3); CREATININE 0.8 mg/dL (0.4-1.0); TOTAL PROTEIN 8.4 g/dL (6.7-8.2)
[2019-07-08 20:00] LABS: BILIRUBIN,URINE NEGATIVE (NEGATIVE); GLUCOSE, URINE (UA) NEGATIVE (NEGATIVE); KETONES,URINE (UA) NEGATIVE (NEGATIVE); LEUKOCYTE ESTERASE, URINE TRACE (NEGATIVE); NITRITE,URINE NEGATIVE (NEGATIVE); OCCULT BLOOD,URINE LARGE (NEGATIVE); PROTEIN,URINE TRACE mg/dL (NEGATIVE); UROBILINOGEN,URINE 0.2 (NORMAL) E.U./dL (NORMAL)
[2019-07-08 20:02] LABS: CLARITY,URINE TURBID (CLEAR)
[2019-07-08] MEDS ORDERED: MAG HYDROX/AL HYDROX/SIMETH 30 ML UDC PO STA (20:08)
[2019-07-08] MEDS ORDERED: SUCRALFATE 1 GM/10 ML UDC PO STA (20:08)
[2019-07-08] MEDS ORDERED: FAMOTIDINE 20 MG TABLET PO STA (20:08)
[2019-07-08] MEDS ORDERED: ONDANSETRON ODT 4 MG TABLET TL STA (20:09)
[2019-07-08 20:10] LABS: BACTERIA,URINE Few /HPF (None Seen); RBC,URINE TNTC /HPF (0-5); SQUAMOUS EPITHELIAL CELL,UR MANY Squamous (<= Few)
--- NOTE | 2019-07-08 20:42 | ED Physician Documentation ---
PD HPI ABD PAIN - Stated complaint Stated Complaint: AB PX/VOMITING - Chief complaint Chief Complaint: Abd Pain - History obtained from History obtained from: Patient, Family - History of Present Illness Timing - onset: Today Timing - duration: Days (1) Timing - details: Gradual onset Pain level max: 8 Pain level now: 8 Quality: Other (burning) Location: Epigastric Radiation: Chest Improved by: Other (nothing) Worsened by: Other (Started after eating a burrito today) Associated symptoms: Nausea. No: Fever, Hematemesis, Diarrhea, Constipation, Melena, Hematochezia Similar symptoms before: Diagnosis (GERD) Recently seen: Not recently seen Review of Systems Constitutional: denies: Fever, Chills Throat: denies: Sore throat Cardiac: denies: Chest pain / pressure Respiratory: denies: Cough : denies: Dysuria, Now EGA Skin: denies: Rash Musculoskeletal: denies: Neck pain, Back pain Neurologic: denies: Headache PD PAST MEDICAL HISTORY - Past Medical History Cardiovascular: None Respiratory: None Neuro: None Endocrine/Autoimmune: None GI: GERD LINE PRODUCTION COOK: None : None HEENT: None Psych: Depression, Schizophrenia Musculoskeletal: Chronic back pain Derm: None - Past Surgical History Past Surgical History: Yes /LINE PRODUCTION COOK: Breast reduction - Present Medications Home Medications: Ambulatory Orders Medication Instructions Recorded Confirmed OLANZapine [ZyPREXA] 10 mg PO QD 02/10/13 07/18/18 Divalproex Sodium [Depakote] 40 mg PO BID 09/13/14 07/18/18 Omeprazole 1 tab PO DAILY 02/13/16 07/18/18 Ondansetron Odt [Zofran] 4 mg TL Q6H PRN #20 tablet 12/28/17 07/18/18 Sucralfate [Carafate] 1 gm PO BID #100 ml 12/28/17 07/18/18 Cyclobenzaprine [Flexeril] 10 mg PO TID PRN #10 tablet 04/29/18 07/18/18 Dicyclomine [Bentyl] 10 mg PO QID #14 capsule 05/20/18 07/18/18 Ondansetron Odt [Zofran] 4 mg TL Q6H PRN #14 tablet 05/20/18 07/18/18 Promethazine [Phenergan] 25 - 50 mg PO Q6H PRN #10 tab 05/22/18 07/18/18 Tramadol HCl [Ultram] 50 mg PO Q6HR PRN #15 tablet 05/22/18 07/18/18 Diphenoxylate/Atropine [Lomotil] 1 each PO QID PRN #7 tablet 11/23/18 Ondansetron Odt [Zofran] 4 mg TL Q6H PRN #14 tablet 11/23/18 Cyclobenzaprine [Flexeril] 10 mg PO TID PRN #20 tablet 01/14/19 Hydrocodone/Acetaminophen 1 - 2 each PO Q6H PRN #14 tablet 01/14/19 [Hydrocodon-Acetaminophen 5-325] - Allergies Allergies/Adverse Reactions: Allergies Allergy/AdvReac Type Severity Reaction Status Date / Time No Known Drug Allergies Allergy Verified 07/08/19 19:00 - Social History Does the pt smoke?: No Smoking Status: Never smoker Does the pt drink ETOH?: No Does the pt have substance abuse?: No - Immunizations Immunizations are current?: Yes - POLST Patient has POLST: No PD ED PE NORMAL - Vitals Vital signs reviewed: Yes - General General: Alert and oriented X 3, No acute distress - HEENT HEENT: Moist mucous membranes - Neck Neck: Supple, no meningeal sign - Cardiac Cardiac: RRR, Strong equal pulses - Respiratory Respiratory: No respiratory distress, Clear bilaterally - Abdomen Abdomen: Soft, Non distended, Other (Mild tenderness to palpation epigastric. No peritoneal signs.) - Back Back: No spinal TTP - Derm Derm: Warm and dry - Neuro Neuro: Alert and oriented X 3 Results - Vitals Vitals: Vital Signs - 24 hr 07/08/19 18:56 Temperature 36.6 C Heart Rate 86 Respiratory 16 Rate Blood Pressure 139/92 H O2 Saturation 98 Oxygen O2 Source Room air - Labs Labs: Laboratory Tests 07/08/19 07/08/19 07/08/19 19:34 19:34 19:50 WBC 7.9 RBC 4.88 Hgb 12.4 Hct 40.0 MCV 82.0 MCH 25.4 L MCHC 31.0 L RDW 14.4 Plt Count 305 MPV 9.7 Neut # (Auto) 3.9 Lymph # (Auto) 3.3 [place] # (Auto) 0.5 Eos # (Auto) 0.1 Baso # (Auto) 0.1 Absolute Nucleated RBC 0.00 Nucleated RBC % 0.0 Sodium 142 Potassium 3.8 Chloride 102 Carbon Dioxide 27 Anion Gap 13.0 BUN 10 Creatinine 0.8 Estimated GFR (MDRD) 78 L Glucose 100 Calcium 9.4 Total Bilirubin 0.5 AST 22 ALT 21 Alkaline Phosphatase 73 Total Protein 8.4 H Albumin 4.3 Globulin 4.1 Albumin/Globulin Ratio 1.0 Lipase 34 Urine Color DARK YELLOW Urine Clarity TURBID Urine pH 6.0 Ur Specific [place] 1.025 Urine Protein TRACE Urine Glucose (UA) NEGATIVE Urine Ketones NEGATIVE Urine Occult Blood LARGE H Urine Nitrite NEGATIVE Urine Bilirubin NEGATIVE Urine Urobilinogen 0.2 (NORMAL) Ur Leukocyte Esterase TRACE H Urine RBC TNTC H Urine WBC 6-10 H Ur Squamous Epith Cells MANY Squamous H Urine Bacteria Few Ur Microscopic Review INDICATED Urine Culture Comments NOT INDICATED PD MEDICAL DECISION MAKING - ED course Complexity details: reviewed results, re-evaluated patient, considered differential, d/w patient, d/w family ED course: Symptoms resolved with GI cocktail. Likely GERD. No acute laboratory issues. We will continue her current medications at home and patient will follow-up with her doctor. Patient counseled regarding signs and symptoms for which I believe and urgent re-evaluation would be necessary. Patient with good understanding of and agreement to plan and is comfortable going home at this time This document was made in part using voice recognition software. While efforts are made to proofread this document, sound alike and grammatical errors may occur. Departure - Departure Disposition: 01 Home, Self Care Clinical Impression: Gastritis Qualifiers: Gastritis type: unspecified gastritis Chronicity: acute Gastritis bleeding: without bleeding Qualified Code(s): K29.00 - Acute gastritis without bleeding Condition: Good Instructions: ED PUD Vs Gastritis Follow-Up: José Ruelas PA-C [Primary Care Provider] - Within 1 week Comments: Follow-up with your doctor for further care. Return if you worsen. Discharge Date/Time: 07/08/19 20:58
== END 2019-07-08 20:58 | disposition home or self-care (01) ==
LOC: ED 18:42
DX: K29.00 Acute gastritis without bleeding (principal)
CPT/HCPCS: 36415; 80053; 81001; 83690; 85025; 99283; 99284; A9270; Q0162; 81003; 87086

== ENCOUNTER 2019-08-14 19:49 | Emergency (ER) | payer MEDICARE, MEDICAID ==
--- NOTE | 2019-08-14 20:14 | ED Physician Documentation ---
PD HPI ABD PAIN - Stated complaint Stated Complaint: FEMALE /IUD - Chief complaint Chief Complaint: Abd Pain - History obtained from History obtained from: Patient - History of Present Illness Timing - onset: Other (44-year-old woman had been amenorrheic until April 23. She went to the clinic where an IUD was placed. Since then she is had bleeding every day. Today it is heavier with clots, that is despite being on medroxyprogesterone started on . 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 : None HEENT: None Psych: Depression, Schizophrenia Musculoskeletal: Chronic back pain Derm: None - Past Surgical History Past Surgical History: Yes /DOOR LINER: Breast reduction - Present Medications Home Medications: Ambulatory Orders Medication Instructions Recorded Confirmed OLANZapine [ZyPREXA] 10 mg PO QD 02/10/13 07/18/18 Divalproex Sodium [Depakote] 40 mg PO BID 09/13/14 07/18/18 Omeprazole 1 tab PO DAILY 02/13/16 07/18/18 Ondansetron Odt [Zofran] 4 mg TL Q6H PRN #20 tablet 12/28/17 07/18/18 Sucralfate [Carafate] 1 gm PO BID #100 ml 12/28/17 07/18/18 Cyclobenzaprine [Flexeril] 10 mg PO TID PRN #10 tablet 04/29/18 07/18/18 Dicyclomine [Bentyl] 10 mg PO QID #14 capsule 05/20/18 07/18/18 Ondansetron Odt [Zofran] 4 mg TL Q6H PRN #14 tablet 05/20/18 07/18/18 Promethazine [Phenergan] 25 - 50 mg PO Q6H PRN #10 tab 05/22/18 07/18/18 Tramadol HCl [Ultram] 50 mg PO Q6HR PRN #15 tablet 05/22/18 07/18/18 Diphenoxylate/Atropine [Lomotil] 1 each PO QID PRN #7 tablet 11/23/18 Ondansetron Odt [Zofran] 4 mg TL Q6H PRN #14 tablet 11/23/18 Cyclobenzaprine [Flexeril] 10 mg PO TID PRN #20 tablet 01/14/19 Hydrocodone/Acetaminophen 1 - 2 each PO Q6H PRN #14 tablet 01/14/19 [Hydrocodon-Acetaminophen 5-325] - Allergies Allergies/Adverse Reactions: Allergies Allergy/AdvReac Type Severity Reaction Status Date / Time No Known Drug Allergies Allergy Verified 08/14/19 20:00 - Social History Does the pt smoke?: No Smoking Status: Never smoker Does the pt drink ETOH?: No Does the pt have substance abuse?: No - Immunizations Immunizations are current?: Yes - POLST Patient has POLST: No PD ED PE NORMAL - Vitals Vital signs reviewed: Yes - General General: Alert and oriented X 3, No acute distress - Abdomen Abdomen: Soft, Non tender - Female Female : Beater Room Supervisor present (Mabel Lees RN), Other (Slight blood in the vault, nontender, IUD was removed per the patient's request and with her permission without complication apparent.) - Neuro Neuro: Alert and oriented X 3, Normal speech Results - Vitals Vitals: Vital Signs - 24 hr 08/14/19 19:57 Temperature 36.4 C L Heart Rate 75 Respiratory 16 Rate Blood Pressure 147/90 H O2 Saturation 100 Oxygen O2 Source Room air - Labs Labs: Laboratory Tests 08/14/19 08/14/19 08/14/19 20:15 20:30 20:30 WBC 8.3 RBC 5.03 Hgb 12.8 Hct 40.6 MCV 80.7 L MCH 25.4 L MCHC 31.5 L RDW 14.9 Plt Count 304 MPV 10.1 Neut # (Auto) 4.2 Lymph # (Auto) 3.4 [place] # (Auto) 0.6 Eos # (Auto) 0.0 Baso # (Auto) 0.1 Absolute Nucleated RBC 0.00 Band Neuts % (Manual) Not Reportable Abnorm Lymph % (Manual) Not Reportable Nucleated RBC % 0.0 Neutrophils # (Manual) Not Reportable Lymphocytes # (Manual) Not Reportable Monocytes # (Manual) Not Reportable Eosinophils # (Manual) Not Reportable Basophils # (Manual) Not Reportable Differential Comment MANUAL=AUTO DIFF Platelet Estimate NORMAL (130-450,000) Platelet Morphology NORMAL APPEARANCE RBC Morph Micro Appear NORMAL APPEARANCE PT 14.1 H INR 1.3 H Sodium Potassium Chloride Carbon Dioxide Anion Gap BUN Creatinine Estimated GFR (MDRD) Glucose Calcium Urine Color DARK YELLOW Urine Clarity CLOUDY Urine pH 6.0 Ur Specific [place] 1.025 Urine Protein TRACE Urine Glucose (UA) NEGATIVE Urine Ketones TRACE Urine Occult Blood LARGE H Urine Nitrite NEGATIVE Urine Bilirubin NEGATIVE Urine Urobilinogen 1 (NORMAL) Ur Leukocyte Esterase TRACE H Urine RBC TNTC H Urine WBC 0-3 Ur Squamous Epith Cells FEW Squamous Urine Bacteria Few Urine Mucus Moderate Strands Ur Microscopic Review INDICATED Urine Culture Comments INDICATED Urine HCG, Qual NEGATIVE Blood Type Antibody Screen 08/14/19 08/14/19 20:30 20:30 WBC RBC Hgb Hct MCV MCH MCHC RDW Plt Count MPV Neut # (Auto) Lymph # (Auto) [place] # (Auto) Eos # (Auto) Baso # (Auto) Absolute Nucleated RBC Band Neuts % (Manual) Abnorm Lymph % (Manual) Nucleated RBC % Neutrophils # (Manual) Lymphocytes # (Manual) Monocytes # (Manual) Eosinophils # (Manual) Basophils # (Manual) Differential Comment Platelet Estimate Platelet Morphology RBC Morph Micro Appear PT INR Sodium 142 Potassium 3.7 Chloride 105 Carbon Dioxide 26 Anion Gap 11.0 BUN 11 Creatinine 0.8 Estimated GFR (MDRD) 78 L Glucose 112 H Calcium 9.1 Urine Color Urine Clarity Urine pH Ur Specific [place] Urine Protein Urine Glucose (UA) Urine Ketones Urine Occult Blood Urine Nitrite Urine Bilirubin Urine Urobilinogen Ur Leukocyte Esterase Urine RBC Urine WBC Ur Squamous Epith Cells Urine Bacteria Urine Mucus Ur Microscopic Review Urine Culture Comments Urine HCG, Qual Blood Type O POSITIVE Antibody Screen POSITIVE PD MEDICAL DECISION MAKING - ED course ED course: 44-year-old woman presents with vaginal bleeding that is been ongoing since having an IUD placed 2-1/2 months ago. It worsens today this is despite being on medroxyprogesterone for the last 3 weeks or so. The timing suggest that the IUD is somewhat related and per her request the IUD was removed during examination. Despite her history, the amount of blood in the vault on examination was at most moderate. Certainly no clots or active bleeding. Departure - Departure Disposition: 01 Home, Self Care Clinical Impression: Vaginal bleeding Condition: Good Record reviewed to determine appropriate education?: Yes Instructions: ED Bleed Irregular Vaginal Follow-Up: Summer Cowan MD [Provider Admit Priv/Credential] - Comments: I would continue the medroxyprogesterone, follow-up with the zigzagger. Return for new or worsening symptoms. Hopefully with the IUD out your bleeding will slow down and stop.
[2019-08-14 20:29] LABS: BILIRUBIN,URINE NEGATIVE (NEGATIVE); GLUCOSE, URINE (UA) NEGATIVE (NEGATIVE); KETONES,URINE (UA) TRACE mg/dL (NEGATIVE); LEUKOCYTE ESTERASE, URINE TRACE (NEGATIVE); NITRITE,URINE NEGATIVE (NEGATIVE); OCCULT BLOOD,URINE LARGE (NEGATIVE); PROTEIN,URINE TRACE mg/dL (NEGATIVE); UROBILINOGEN,URINE 1 (NORMAL) E.U./dL (NORMAL)
[2019-08-14 20:32] LABS: CLARITY,URINE CLOUDY (CLEAR); HCG UR QUAL NEGATIVE
[2019-08-14 20:48] LABS: RBC,URINE TNTC /HPF (0-5); SQUAMOUS EPITHELIAL CELL,UR FEW Squamous (<= Few)
[2019-08-14 20:49] LABS: BACTERIA,URINE Few /HPF (None Seen); MUCUS,URINE Moderate Strands
[2019-08-14 20:59] LABS: BASOPHILS # (AUTO) 0.1 10^3/uL (0.0-0.1); BASOPHILS % (AUTO) 0.7 %; HGB - HEMOGLOBIN 12.8 g/dL (12.0-16.0); LYMPHOCYTES # (AUTO) 3.4 10^3/uL (1.5-3.5); LYMPHOCYTES % (AUTO) 41.1 %; MEAN CORPUSCULAR HEMOGLOBIN 25.4 pg (27.0-31.0); MEAN CORPUSCULAR HGB CONC 31.5 g/dL (32.0-36.0); MEAN CORPUSCULAR VOLUME 80.7 fL (81.0-99.0); MEAN PLATELET VOLUME 10.1 fL (7.9-10.8); MONOCYTES # (AUTO) 0.6 10^3/uL (0.0-1.0); MONOCYTES % (AUTO) 6.7 %; NEUTROPHILS # (AUTO) 4.2 10^3/uL (1.5-6.6); NEUTROPHILS % (AUTO) 51.3 %; PLT - PLATELET COUNT 304 10^3/uL (130-450); RED BLOOD COUNT 5.03 10^6/uL (4.20-5.40); RED CELL DISTRIBUTION WIDTH 14.9 % (12.0-15.0); WHITE BLOOD COUNT 8.3 x10^3/uL (4.8-10.8)
[2019-08-14 21:11] LABS: INR 1.3 (0.8-1.2); PT - PROTHROMBIN TIME 14.1 secs (9.9-12.6)
[2019-08-14 21:17] LABS: CALCIUM 9.1 mg/dL (8.5-10.3); CREATININE 0.8 mg/dL (0.4-1.0)
[2019-08-14 21:40] LABS: PLATELET ESTIMATE, MANUAL NORMAL (130-450,000) (NORMAL); PLATELET MORPHOLOGY NORMAL APPEARANCE (NORMAL); RBC MORPHOLOGY (MULTIPLE) NORMAL APPEARANCE (NORMAL)
[2019-08-14 21:41] LABS: DIFFERENTIAL COMMENT MANUAL=AUTO DIFF
[2019-08-14 22:34] VITALS: BP 133/77
--- NOTE | 2019-08-14 22:42 | Ultrasound Report ---
Reason: pelvic pain, bleed Procedure Date: 08/14/2019 Accession Number: [id number] / [id number] Procedure: US - Pelvic w/Transvag+Doppler Comp CPT Code: Final Report FULL RESULT: EXAM: PELVIC ULTRASOUND WITH DOPPLERS CLINICAL HISTORY: Vaginal bleeding, pelvic pain. IUD removed this evening. COMPARISON: PELVIC W/TRANSVAGINAL 04/07/2019 3:19 PM TECHNIQUE: Realtime transabdominal imaging performed to identify the uterus and adnexa and as an overview of other pelvic structures, followed by transvaginal imaging for better assessment of the endometrium and adnexa, with static image documentation. Color flow imaging and Doppler spectral analysis was performed to evaluate blood flow to the ovaries given pelvic pain and clinical concern for ovarian torsion. FINDINGS: Uterus: 8.7 x 5.3 x 5.4 cm, volume 130 cc. Anteverted position. Nonspecific heterogeneity of the myometrium. Masses: None. Endometrium: 10.0 mm. There is nonspecific vascularity within the endometrial lining along the lower uterine segment/lower uterine body. Cervix: Unremarkable. Nabothian cyst. Right Ovary: 3.4 x 1.8 x 1.7 cm, volume 5.3 cc. Normal echotexture. Arterial and venous blood flow are present. PSV 5.2 cm/sec. RI 0.56. Adnexa are unremarkable. Left Ovary: Left ovary is suboptimally visualized. As visualized it measures 3.3 x 1.6 x 2.0 cm, volume 5.9 cc. Internal blood flow is suboptimally assessed, with peak systolic velocity of 24.1 cm and a resistive index of 0.85. Adnexa are unremarkable. Free Fluid: None. Other: None. IMPRESSION: 1. Nonspecific heterogeneous appearance of the myometrium with bulbous configuration of the uterine body and fundus. This could be secondary to underlying adenomyosis and/or leiomyomas. 2. There is vascularity within the inferior portion of the endometrial lining at the uterine body/lower uterine segment. A focal endometrial lesion is not identified. Endometrium could be best further assessed on days 6 through 10 of the menstrual cycle. 3. No definite suspicious adnexal lesion. Left ovary is suboptimally visualized. No evidence of torsion. RADIA
== END 2019-08-14 22:42 | disposition home or self-care (01) ==
LOC: ED 19:49
DX: N93.9 Abnormal uterine and vaginal bleeding, unspecified (principal); Z30.432 Encounter for removal of intrauterine contraceptive device
CPT/HCPCS: 36415; 76830; 76856; 80048; 81001; 81003; 81025; 85025; 85610; 86850; 86870; 86900; 86901; 87086; 93975; 99282; 99284

== ENCOUNTER 2019-08-15 14:21 | Emergency (ER) | payer MEDICARE, MEDICAID ==
[2019-08-15 15:57] LABS: BASOPHILS % (AUTO) 0.6 %; HGB - HEMOGLOBIN 12.5 g/dL (12.0-16.0); LYMPHOCYTES # (AUTO) 2.5 10^3/uL (1.5-3.5); LYMPHOCYTES % (AUTO) 35.4 %; MEAN CORPUSCULAR HEMOGLOBIN 24.5 pg (27.0-31.0); MEAN CORPUSCULAR HGB CONC 30.3 g/dL (32.0-36.0); MEAN PLATELET VOLUME 9.9 fL (7.9-10.8); MONOCYTES # (AUTO) 0.4 10^3/uL (0.0-1.0); MONOCYTES % (AUTO) 6.1 %; NEUTROPHILS # (AUTO) 4.1 10^3/uL (1.5-6.6); NEUTROPHILS % (AUTO) 57.8 %; PLT - PLATELET COUNT 274 10^3/uL (130-450); RED CELL DISTRIBUTION WIDTH 15.2 % (12.0-15.0)
[2019-08-15 16:12] LABS: ALBUMIN 4.5 g/dL (3.2-5.5); ALBUMIN/GLOBULIN RATIO 1.2 (1.0-2.2); BILIRUBIN,TOTAL 0.4 mg/dL (0.2-1.0); CREATININE 0.7 mg/dL (0.4-1.0); TOTAL PROTEIN 8.2 g/dL (6.7-8.2)
[2019-08-15 16:56] VITALS: BP 139/96
[2019-08-15] MEDS ORDERED: NAPROXEN 250 MG TABLET PO STA (17:02)
[2019-08-15] MEDS ORDERED: HYDROcod/ACETAM 5/325 MG TABLET PO STA (17:02)
--- NOTE | 2019-08-15 17:07 | ED Physician Documentation ---
PD HPI ABD PAIN - Stated complaint Stated Complaint: WEAKNESS - Chief complaint Chief Complaint: Abd Pain - History obtained from History obtained from: Patient (I saw her last night for dysfunctional uterine bleeding. Per her request her IUD was removed. Ultrasound showed some thickened endometrium and potential fibroid. Now bleeding is worse and more pelvic cramping. 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 TOOL MECHANIC: None : None HEENT: None Psych: Depression, Schizophrenia Musculoskeletal: Chronic back pain Derm: None - Past Surgical History Past Surgical History: Yes /MACHINE TOOL MECHANIC: Breast reduction - Present Medications Home Medications: Ambulatory Orders Medication Instructions Recorded Confirmed OLANZapine [ZyPREXA] 10 mg PO QD 02/10/13 07/18/18 Divalproex Sodium [Depakote] 40 mg PO BID 09/13/14 07/18/18 Omeprazole 1 tab PO DAILY 02/13/16 07/18/18 Ondansetron Odt [Zofran] 4 mg TL Q6H PRN #20 tablet 12/28/17 07/18/18 Sucralfate [Carafate] 1 gm PO BID #100 ml 12/28/17 07/18/18 Cyclobenzaprine [Flexeril] 10 mg PO TID PRN #10 tablet 04/29/18 07/18/18 Dicyclomine [Bentyl] 10 mg PO QID #14 capsule 05/20/18 07/18/18 Ondansetron Odt [Zofran] 4 mg TL Q6H PRN #14 tablet 05/20/18 07/18/18 Promethazine [Phenergan] 25 - 50 mg PO Q6H PRN #10 tab 05/22/18 07/18/18 Tramadol HCl [Ultram] 50 mg PO Q6HR PRN #15 tablet 05/22/18 07/18/18 Diphenoxylate/Atropine [Lomotil] 1 each PO QID PRN #7 tablet 11/23/18 Ondansetron Odt [Zofran] 4 mg TL Q6H PRN #14 tablet 11/23/18 Cyclobenzaprine [Flexeril] 10 mg PO TID PRN #20 tablet 01/14/19 Hydrocodone/Acetaminophen 1 - 2 each PO Q6H PRN #14 tablet 01/14/19 [Hydrocodon-Acetaminophen 5-325] Hydrocodone/Acetaminophen 1 - 2 each PO Q6H PRN #14 tablet 08/15/19 [Hydrocodon-Acetaminophen 5-325] Medroxyprogesterone Acetate 2 tab PO TID 10 Days #60 tablet 08/15/19 [Provera] Meloxicam [Mobic] 7.5 mg PO BID PRN #20 tablet 08/15/19 Tranexamic Acid [Lysteda] 2 tab PO TID 5 Days #30 tablet 08/15/19 - Allergies Allergies/Adverse Reactions: Allergies Allergy/AdvReac Type Severity Reaction Status Date / Time No Known Drug Allergies Allergy Verified 08/14/19 20:00 - Social History Does the pt smoke?: No Smoking Status: Never smoker Does the pt drink ETOH?: No Does the pt have substance abuse?: No - Immunizations Immunizations are current?: Yes - POLST Patient has POLST: No PD ED PE NORMAL - Vitals Vital signs reviewed: Yes - General General: Alert and oriented X 3, No acute distress - Abdomen Abdomen: Soft, Non tender - Female Female : Deferred (As it was performed last night) - Neuro Neuro: Alert and oriented X 3, Normal speech Results - Vitals Vitals: Vital Signs - 24 hr 08/15/19 08/15/19 14:37 16:55 Temperature 36.9 C 37.0 C Heart Rate 89 81 Respiratory 18 16 Rate Blood Pressure 141/98 H 139/96 H O2 Saturation 98 99 Oxygen O2 Source Room air - Labs Labs: Laboratory Tests 08/15/19 08/15/19 15:40 15:40 WBC 7.0 RBC 5.10 Hgb 12.5 Hct 41.3 MCV 81.0 MCH 24.5 L MCHC 30.3 L RDW 15.2 H Plt Count 274 MPV 9.9 Neut # (Auto) 4.1 Lymph # (Auto) 2.5 [place] # (Auto) 0.4 Eos # (Auto) 0.0 Baso # (Auto) 0.0 Absolute Nucleated RBC 0.00 Nucleated RBC % 0.0 Sodium 138 Potassium 3.3 L Chloride 103 Carbon Dioxide 27 Anion Gap 8.0 BUN 10 Creatinine 0.7 Estimated GFR (MDRD) 90 Glucose 109 H Calcium 9.0 Total Bilirubin 0.4 AST 17 ALT 18 Alkaline Phosphatase 71 Total Protein 8.2 Albumin 4.5 Globulin 3.7 Albumin/Globulin Ratio 1.2 Lipase 34 PD MEDICAL DECISION MAKING - ED course ED course: 44-year-old woman with now worse dysfunctional uterine bleeding. We will triple her Provera and start her on Lysteda pending follow-up. Discussed the need for gynecology follow-up. She may need an endometrial biopsy versus consideration for hysterectomy. Her H&H is stable from last night. Departure - Departure Disposition: Home, Self Care Clinical Impression: Dysfunctional uterine bleeding Condition: Good Record reviewed to determine appropriate education?: Yes Instructions: ED Bleed Irregular Vaginal Prescriptions: Hydrocodone/Acetaminophen [Hydrocodon-Acetaminophen 5-325] 1 - 2 each PO Q6H PRN #14 tablet PRN Reason: pain Medroxyprogesterone Acetate [Provera] 2 tab PO TID 10 Days #60 tablet Meloxicam [Mobic] 7.5 mg PO BID PRN #20 tablet PRN Reason: Pain Tranexamic Acid [Lysteda] 2 tab PO TID 5 Days #30 tablet Comments: As discussed, your ultrasound from last night did demonstrate some potential fibroid formation. Make sure to follow-up with Dr. Cowan for evaluation, she may want to do endometrial biopsy versus hysteroscopy versus hysterectomy. Return for new or worsening symptoms.
[2019-08-15 17:44] LABS: HCG UR QUAL NEGATIVE
== END 2019-08-15 17:31 | disposition home or self-care (01) ==
LOC: ED 14:21
DX: N93.8 Other specified abnormal uterine and vaginal bleeding (principal); R93.89 Abnormal findings on diagnostic imaging of other specified body structures
CPT/HCPCS: 36415; 80053; 81025; 83690; 85025; 87086; 99283; 99284; A9270; 81001; 81003

== ENCOUNTER 2019-08-18 11:24 | Emergency (ER) | payer MEDICARE, MEDICAID ==
[2019-08-18 11:34] VITALS: BP 137/97
[2019-08-18 12:10] LABS: BASOPHILS % (AUTO) 0.5 %; HGB - HEMOGLOBIN 12.6 g/dL (12.0-16.0); LYMPHOCYTES # (AUTO) 2.7 10^3/uL (1.5-3.5); LYMPHOCYTES % (AUTO) 35.2 %; MEAN CORPUSCULAR HEMOGLOBIN 24.9 pg (27.0-31.0); MEAN CORPUSCULAR HGB CONC 30.9 g/dL (32.0-36.0); MEAN CORPUSCULAR VOLUME 80.5 fL (81.0-99.0); MEAN PLATELET VOLUME 9.9 fL (7.9-10.8); MONOCYTES # (AUTO) 0.5 10^3/uL (0.0-1.0); MONOCYTES % (AUTO) 5.8 %; NEUTROPHILS # (AUTO) 4.5 10^3/uL (1.5-6.6); NEUTROPHILS % (AUTO) 58.2 %; PLT - PLATELET COUNT 311 10^3/uL (130-450); RED BLOOD COUNT 5.07 10^6/uL (4.20-5.40); RED CELL DISTRIBUTION WIDTH 15.2 % (12.0-15.0); WHITE BLOOD COUNT 7.7 x10^3/uL (4.8-10.8)
[2019-08-18 12:17] LABS: INR 1.3 (0.8-1.2); PT - PROTHROMBIN TIME 14.7 secs (9.9-12.6)
[2019-08-18 12:23] LABS: ALBUMIN 4.8 g/dL (3.2-5.5); ALBUMIN/GLOBULIN RATIO 1.2 (1.0-2.2); BILIRUBIN,TOTAL 0.8 mg/dL (0.2-1.0); CALCIUM 9.5 mg/dL (8.5-10.3); CREATININE 0.7 mg/dL (0.4-1.0); TOTAL PROTEIN 8.9 g/dL (6.7-8.2)
[2019-08-18 12:25] LABS: PARTIAL THROMBOPLASTIN TIME 32.7 secs (24.9-33.3)
== END 2019-08-18 14:53 | disposition left against medical advice (07) ==
LOC: ED 11:24
DX: Z53.21 Procedure and treatment not carried out due to patient leaving prior to being seen by health care provider (principal); N93.8 Other specified abnormal uterine and vaginal bleeding
CPT/HCPCS: 36415; 80053; 83690; 85025; 85610; 85730; 86905; 99281; 99282

== ENCOUNTER 2019-08-18 18:55 | Emergency (ER) | payer MEDICARE, MEDICAID ==
--- NOTE | 2019-08-18 21:39 | ED Physician Documentation ---
PD HPI FEMALE - Stated complaint Stated Complaint: FEM - Chief complaint Chief Complaint: Abd Pain - History obtained from History obtained from: Patient, Family - History of Present Illness Timing - onset: How many months ago (2+) Timing - duration: Months Timing - details: Abrupt onset, Still present Associated symptoms: Pelvic pain, Vaginal bleeding Contributing factors: IUD Similar symptoms before: Diagnosis (DUB) Recently seen: Emergency Dept - Additional information Additional information: 44-year-old female who had an IUD placed in April has had problems with pain and bleeding since the placement of the IUD. She has had her IUD removed she is had continue with this bleeding and she was seen in the emergency department several days ago by Dr. Sarah and placed on to an increased dose of Provera and tranexamic acid. She has had a reduction in her bleeding but is still saturating 3 pads and has come back to the emergency department for evaluation. She has had no drop in her hemoglobin or hematocrit. She was directed by the clinic to come to the emergency department for evaluation. She was in the department waiting for about 3 hours earlier in the day she eventually went home and she has now come back for evaluation. Review of Systems Constitutional: denies: Fever Eyes: denies: Decreased vision Ears: denies: Ear pain Nose: denies: Congestion Throat: denies: Sore throat Cardiac: denies: Chest pain / pressure, Palpitations Respiratory: denies: Dyspnea, Cough GI: reports: Abdominal Pain. denies: Nausea, Vomiting : reports: Vaginal bleeding, Irregular menses. denies: Dysuria, Frequency Skin: denies: Rash Musculoskeletal: denies: Neck pain, Extremity pain Neurologic: denies: Generalized weakness, Focal weakness, Numbness PD PAST MEDICAL HISTORY - Past Medical History Cardiovascular: None Respiratory: None Neuro: None Endocrine/Autoimmune: None GI: GERD MARKETING SUPPORT SPECIALIST: None : None HEENT: None Psych: Depression, Schizophrenia Musculoskeletal: None Derm: None - Past Surgical History Past Surgical History: Yes /MARKETING SUPPORT SPECIALIST: Breast reduction - Present Medications Home Medications: Ambulatory Orders Medication Instructions Recorded Confirmed OLANZapine [ZyPREXA] 10 mg PO QD 02/10/13 07/18/18 Divalproex Sodium [Depakote] 40 mg PO BID 09/13/14 07/18/18 Omeprazole 1 tab PO DAILY 02/13/16 07/18/18 Ondansetron Odt [Zofran] 4 mg TL Q6H PRN #20 tablet 12/28/17 07/18/18 Sucralfate [Carafate] 1 gm PO BID #100 ml 12/28/17 07/18/18 Cyclobenzaprine [Flexeril] 10 mg PO TID PRN #10 tablet 04/29/18 07/18/18 Dicyclomine [Bentyl] 10 mg PO QID #14 capsule 05/20/18 07/18/18 Ondansetron Odt [Zofran] 4 mg TL Q6H PRN #14 tablet 05/20/18 07/18/18 Promethazine [Phenergan] 25 - 50 mg PO Q6H PRN #10 tab 05/22/18 07/18/18 Tramadol HCl [Ultram] 50 mg PO Q6HR PRN #15 tablet 05/22/18 07/18/18 Diphenoxylate/Atropine [Lomotil] 1 each PO QID PRN #7 tablet 11/23/18 Ondansetron Odt [Zofran] 4 mg TL Q6H PRN #14 tablet 11/23/18 Cyclobenzaprine [Flexeril] 10 mg PO TID PRN #20 tablet 01/14/19 Hydrocodone/Acetaminophen 1 - 2 each PO Q6H PRN #14 tablet 01/14/19 [Hydrocodon-Acetaminophen 5-325] Hydrocodone/Acetaminophen 1 - 2 each PO Q6H PRN #14 tablet 08/15/19 [Hydrocodon-Acetaminophen 5-325] Medroxyprogesterone Acetate 2 tab PO TID 10 Days #60 tablet 08/15/19 [Provera] Meloxicam [Mobic] 7.5 mg PO BID PRN #20 tablet 08/15/19 Tranexamic Acid [Lysteda] 2 tab PO TID 5 Days #30 tablet 08/15/19 - Allergies Allergies/Adverse Reactions: Allergies Allergy/AdvReac Type Severity Reaction Status Date / Time No Known Drug Allergies Allergy Verified 08/18/19 19:18 - Social History Does the pt smoke?: No Smoking Status: Never smoker Does the pt drink ETOH?: No Does the pt have substance abuse?: No - Immunizations Immunizations are current?: Yes - POLST Patient has POLST: No PD ED PE NORMAL - Vitals Vital signs reviewed: Yes (hypertensive ) - General General: Alert and oriented X 3, No acute distress, Well developed/nourished - HEENT HEENT: Atraumatic, PERRL, EOMI - Neck Neck: Supple, no meningeal sign, No bony TTP - Cardiac Cardiac: RRR, No murmur - Respiratory Respiratory: No respiratory distress, Clear bilaterally - Abdomen Abdomen: Soft, Other (mild suprapubic tenderness) - Back Back: No CVA TTP, No spinal TTP - Derm Derm: Normal color, Warm and dry, No rash - Extremities Extremities: No deformity, No edema, No calf tenderness / cord - Neuro Neuro: Alert and oriented X 3, sand polisher 2-12 intact, No motor deficit, No sensory deficit, Normal speech Eye Opening: Spontaneous Motor: Obeys Commands Verbal: Oriented GCS Score: 15 - Psych Psych: Normal mood, Normal affect Results - Vitals Vitals: Vital Signs - 24 hr 08/18/19 08/18/19 19:15 21:53 Temperature 2.6 C L Heart Rate 72 78 Respiratory 16 20 Rate Blood Pressure 143/91 H 140/90 H O2 Saturation 99 100 Oxygen O2 Source Room air PD MEDICAL DECISION MAKING - ED course Complexity details: reviewed old records, reviewed results, re-evaluated pat chris, considered differential, d/w patient, d/w family ED course: 44-year-old female with dysfunctional uterine bleeding has a stable hemoglobin and hematocrit. She has had bleeding for some time and she has not been able to address this through the clinic. She has been treated adequately here in the emergency department and the MARKETING SUPPORT SPECIALIST doctor education and training coordinator Dr. Duque is consulted in the case and recommends the patient follow-up with them in the clinic. He recommends no change to the patient's medical regimen which has the patient on Provera 3 times per day and tranexamic acid. The patient had blood work done 3 hours prior to her second visit showing no change in H&H at the 40% range over the past month. Departure - Departure Disposition: Home, Self Care Clinical Impression: Dysfunctional uterine bleeding Condition: Stable Instructions: ED Bleed Irregular Vaginal Follow-Up: José Ruelas PA-C [Primary Care Provider] - [facility] [Provider Group] Comments: Continue your current medical regimen and follow-up with [facility] on Friday. If you develop bleeding of more than 2 pads per hour for 4 hours in a row return to the emergency department. Discharge Date/Time: 08/18/19 21:53
[2019-08-18 21:54] VITALS: BP 140/90
== END 2019-08-18 21:53 | disposition home or self-care (01) ==
LOC: ED 18:55
DX: N93.8 Other specified abnormal uterine and vaginal bleeding (principal)
CPT/HCPCS: 99281; 99282

== ENCOUNTER 2019-08-25 14:40 | Outpatient (CLI) | payer MEDICARE, MEDICAID ==
[2019-08-25 19:43] LABS: FOLLICLE STIMULATING HORMONE 16.72 mIU/mL
[2019-08-25 19:44] LABS: LUTEINIZING HORMONE 3.58 mIU/mL
== END 2019-08-25 23:59 | disposition home or self-care (01) ==
LOC: LAB.N 14:40
PROVIDERS: ATTEND Obstetrics & Gynecology
DX: N93.9 Abnormal uterine and vaginal bleeding, unspecified (principal)
CPT/HCPCS: 36415; 82670; 83001; 83002

== ENCOUNTER 2019-10-05 10:36 | Outpatient (CLI) | payer MEDICARE, MEDICAID ==
[2019-10-05 11:09] LABS: BASOPHILS % (AUTO) 0.3 %; HGB - HEMOGLOBIN 11.3 g/dL (12.0-16.0); LYMPHOCYTES # (AUTO) 2.6 10^3/uL (1.5-3.5); MEAN CORPUSCULAR HEMOGLOBIN 24.7 pg (27.0-31.0); MEAN CORPUSCULAR HGB CONC 30.7 g/dL (32.0-36.0); MEAN CORPUSCULAR VOLUME 80.3 fL (81.0-99.0); MEAN PLATELET VOLUME 9.5 fL (7.9-10.8); MONOCYTES # (AUTO) 0.4 10^3/uL (0.0-1.0); MONOCYTES % (AUTO) 6.2 %; NEUTROPHILS # (AUTO) 3.8 10^3/uL (1.5-6.6); NEUTROPHILS % (AUTO) 55.2 %; PLT - PLATELET COUNT 270 10^3/uL (130-450); RED BLOOD COUNT 4.58 10^6/uL (4.20-5.40); WHITE BLOOD COUNT 6.8 x10^3/uL (4.8-10.8)
[2019-10-05 11:20] LABS: HCG UR QUAL NEGATIVE
[2019-10-05 11:21] LABS: ALBUMIN 3.9 g/dL (3.2-5.5); BILIRUBIN,TOTAL 0.5 mg/dL (0.2-1.0); CREATININE 0.7 mg/dL (0.4-1.0); TOTAL PROTEIN 7.7 g/dL (6.7-8.2)
== END 2019-10-05 10:37 | disposition home or self-care (01) ==
LOC: LAB 10:36
PROVIDERS: ATTEND Obstetrics & Gynecology
DX: Z01.812 Encounter for preprocedural laboratory examination (principal); N92.0 Excessive and frequent menstruation with regular cycle; N80.0 Endometriosis of uterus; D25.9 Leiomyoma of uterus, unspecified; E11.9 Type 2 diabetes mellitus without complications
CPT/HCPCS: 36415; 80053; 81025; 85025; 86850; 86870; 86900; 86901; 86920; 86922

== ENCOUNTER 2019-10-06 08:52 | Day surgery (SDC) | payer MEDICARE, MEDICAID ==
[~2019-10-06 08:52] MED LIST: LIDOCAINE 1%-EPI 1:100000 20 ML MDV ONE
[2019-10-06] MEDS ORDERED: LACTATED RINGERS 1,000 ML IV ONE (09:23)
[2019-10-06] MEDS ORDERED: CEFAZOLIN SODIUM IN 0.9 % NACL 2 GM/100 ML BAG IV ONE (10:01)
--- NOTE | 2019-10-06 10:11 | ANESTHESIA ---
Pre-Anesthesia VS, & Labs - Diagnosis menorrhagia, US fibroid vs adenomyosis - Procedure hysterscopy, D&C Vital Signs: Temp Pulse Resp BP Pulse Ox 36 C L 96 12 135/78 H 96 10/06/19 09:23 10/06/19 09:23 10/06/19 09:23 10/06/19 09:23 10/06/19 09:23 Height 5 ft 4 in Weight (kg) 114.8 kg Body Mass Index 42.9 - NPO >8 hours - Is Patient ?: No Home Medications and Allergies Home Medications: Ambulatory Orders Calcium Carbonate [Tums (Calcium Carbonate 500mg)] 500 mg PO ONCE PRN 10/05/[address] [Odell Sales] 250 mg PO BID 10/05/19 Metformin HCl 500 mg PO DAILY 10/05/19 Omeprazole 20 mg PO DAILY PRN 10/05/19 OLANZapine [ZyPREXA] 10 mg PO QPM 02/10/13 Calcium Carbonate [Tums (Calcium Carbonate 500mg)] 500 mg PO ONCE PRN 10/05/[address] [Odell Sales] 250 mg PO BID 10/05/19 Metformin HCl 500 mg PO DAILY 10/05/19 Omeprazole 20 mg PO DAILY PRN 10/05/19 Allergies/Adverse Reactions: Allergies Allergy/AdvReac Type Severity Reaction Status Date / Time No Known Drug Allergies Allergy Verified 08/18/19 19:18 Anes History & Medical History - Anesthetic History Anesthesia Complications: reports: No previous complications - Medical History Cardiovascular: reports: None Pulmonary: reports: None Gastrointestinal: reports: GERD (controlled with medication), Other (Morbid obesity, BMI>40) Urinary: reports: None Neuro: reports: None Musculoskeletal: reports: None Endocrine/Autoimmune: reports: Other (pre-diabetic) Blood Disorders: reports: None Skin: reports: None Smoking Status: Never smoker Psychosocial: reports: Depression, Anxiety - Surgical History Gynecologic: Breast reduction Results - EKG Results EKG Comparison: Reviewed EKG Exam General: Alert, Oriented x3, Cooperative, No acute distress Dental: Poor dentition Mouth Openin Fingerbreadth Neck Mobility: Normal Mallampati classification: II Thyromental Distance: greater than 6 cm Respiratory: Lungs clear, Normal breath sounds, No respiratory distress, No accessory muscle use Cardiovascular: Regular rate, Normal S1, Normal S2, No murmurs Mental/Cognitive Status: Alert/Oriented X3, Normal for patient Plan Anesthesia Type: General Consent for Procedure(s) Verified and Reviewed: Yes Code Status: Attempt Resuscitation ASA classification: 2-Mild systemic disease Is this case an emergency?: No
[2019-10-06] MEDS ORDERED: LIDOCAINE-MPF 2% 5 ML VIAL IM ONE (10:33)
[2019-10-06] MEDS ORDERED: PROPOFOL 200 MG/20 ML VIAL IVP ONE (10:33)
[2019-10-06] MEDS ORDERED: KETOROLAC 30 MG/ML VIAL IVP ONE (10:33)
[2019-10-06] MEDS ORDERED: fentaNYL 100 MCG/2 ML VIAL IVP ONE (10:33)
[2019-10-06] MEDS ORDERED: GLYCOPYRROLATE 1 MG/5 ML VIAL IVP ONE (10:33)
[2019-10-06] MEDS ORDERED: LIDOCAINE 1%-EPI 1:100000 30 ML MDV SUBQ ONE (10:56)
[2019-10-06] MEDS ORDERED: ONDANSETRON 4 MG/2 ML VIAL IVP PRN (11:20)
[2019-10-06] MEDS ORDERED: HYDROmorphone 0.5 MG/0.5 ML SYRINGE IVP PRN (11:20)
[2019-10-06] MEDS ORDERED: LORazepam 2 MG/ML VIAL IVP PRN (11:20)
[2019-10-06] MEDS ORDERED: oxyCODONE 5 MG TABLET PO PRN (11:20)
--- NOTE | 2019-10-06 11:24 | OPERATIVE REPORT ---
Operative Report - General Procedure Date: 10/06/19 Planned Procedure: Hysterscopy with myosure Pre-Op Diagnosis: abnormal uterine bleeding possible suspect endometrial polyp Post Op Diagnosis: abnormal uterine bleeding - Procedure Note Primary Surgeon: Vince Vincent MD Anesthesia Provider: Dottie Long CRNA Anesthesia Technique: General LMA Pathology: endometrial currettings IV Fluids (mL): 300 Estimated Blood Loss (mL): 10
[2019-10-06 12:50] VITALS: BP 128/80
--- NOTE | 2019-10-06 12:58 | OPERATIVE REPORT ---
DATE OF SERVICE: 10/06/2019 Physician: Vince Vincent MD PREOPERATIVE DIAGNOSIS: Menorrhagia, suspect submucosal fibroid versus endometrial polyp. POSTOPERATIVE DIAGNOSIS: Heavy vaginal bleeding. PROCEDURE: Hysteroscopy with dilatation and curettage. SURGEON: Vince Vincent MD ANESTHESIA: General with LMA with Dottie Long CRNA. ESTIMATED BLOOD LOSS: 10 mL IV FLUIDS: 300 mL FINDINGS: Uterine size and orientation was not able to be palpated secondary to abdominal wall thick ness. Upon introducing the hysteroscope, uterus sounded to 9.5 cm, and there was no evidence of any polyps or submucosal fibroids. PROCEDURE IN DETAIL: Following adequate general anesthesia via LMA, patient was placed in the supine position in [facility]. At this point, a pelvic examination under anesthesia was performed. Sh e was then prepped and draped in the usual sterile fashion. A speculum was then placed in the vagina . Cervix was visualized, grasped with a single-tooth tenaculum. It was then dilated to 7 mm and the n sounded to 9.5 cm. A hysteroscope was then introduced. The entire endometrial cavity was visualiz ed including both cornua. There was evidence of a very small polyp in the left cornual area. The My oSure LITE was then introduced and the endometrial cavity was sampled in all quadrants. At this poin t, there was no evidence of any bleeding. The deficit was roughly 200 mL. Patient tolerated the pro cedure. Cervix was then released from the single-tooth tenaculum. She was taken to recovery in stab le condition. Sponge and needle counts were correct. TD: 10/06/2019 11:42
== END 2019-10-06 08:53 | disposition home or self-care (01) ==
LOC: SDS 08:52
PROVIDERS: ATTEND Obstetrics & Gynecology
PROC: 0UDB8ZZ Extraction of Endometrium, Via Natural or Artificial Opening Endoscopic (ICD-10-PCS; principal; 2019-10-06 10:15)
DX: N93.9 Abnormal uterine and vaginal bleeding, unspecified (principal); N92.0 Excessive and frequent menstruation with regular cycle; R10.9 Unspecified abdominal pain; R73.03 Prediabetes; E66.01 Morbid (severe) obesity due to excess calories; Z68.41 Body mass index [BMI] 40.0-44.9, adult
CPT/HCPCS: 58558; J0690; J7120

== ENCOUNTER 2019-10-13 22:46 | Emergency (ER) | payer MEDICARE, MEDICAID ==
[2019-10-14] MEDS ORDERED: diazePAM 5 MG TABLET PO STA (00:06)
--- NOTE | 2019-10-14 00:09 | ED Physician Documentation ---
PD HPI BACK INJURY - Stated complaint Stated Complaint: BACK/LEG PAIN - History obtained from History obtained from: Patient (Patient is a 44-year-old female the reports she slipped from a sitting height and landed on her bottom she is complaining of vague lower back discomfort without bowel or bladder dysfunction without saddle anesthesia she had a D&C on the 15th of this month and she reports that she took her last oxycodone earlier tonight. She has an appointment today with her process coordinator she denies any vaginal bleeding she denies any history of spinal surgery she denies any and denies any fevers denies any saddle saddle anesthesia and denies any bowel or bladder dysfunction.) Review of Systems Ten Systems: 10 systems reviewed and negative Constitutional: reports: Reviewed and negative Eyes: reports: Reviewed and negative Ears: reports: Reviewed and negative Nose: reports: Reviewed and negative Throat: reports: Reviewed and negative Cardiac: reports: Reviewed and negative Respiratory: reports: Reviewed and negative GI: reports: Reviewed and negative : reports: Reviewed and negative Skin: reports: Reviewed and negative Musculoskeletal: reports: Back pain Neurologic: reports: Reviewed and negative Psychiatric: reports: Reviewed and negative Endocrine: reports: Reviewed and negative Immunocompromised: reports: Reviewed and negative PD PAST MEDICAL HISTORY - Past Medical History Cardiovascular: None Respiratory: None Neuro: None Endocrine/Autoimmune: None GI: GERD (controlled with medication), Other (Morbid obesity, BMI>40) 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 TECHNICIAN: None : None HEENT: None Psych: Depression, Schizophrenia Musculoskeletal: None Derm: None - Past Surgical History Past Surgical History: Yes /RESEARCH TECHNICIAN: Breast reduction - Present Medications Home Medications: Ambulatory Orders Medication Instructions Recorded Confirmed OLANZapine [ZyPREXA] 10 mg PO QPM 02/10/13 10/06/19 Calcium Carbonate [Tums (Calcium 500 mg PO ONCE PRN 10/05/19 10/06/19 Carbonate 500mg)] Divalproex Dr [Depakote Dr] 250 mg PO BID 10/05/19 10/06/19 Metformin HCl 500 mg PO DAILY 10/05/19 10/06/19 Omeprazole 20 mg PO DAILY PRN 10/05/19 10/06/19 - Allergies Allergies/Adverse Reactions: Allergies Allergy/AdvReac Type Severity Reaction Status Date / Time No Known Drug Allergies Allergy Verified 08/18/19 19:18 - Social History Does the pt smoke?: No Smoking Status: Never smoker Does the pt drink ETOH?: No Does the pt have substance abuse?: No - Immunizations Immunizations are current?: Yes - POLST Patient has POLST: No PD ED PE NORMAL - Vitals Vital signs reviewed: Yes - General General: Alert and oriented X 3, No acute distress - HEENT HEENT: PERRL - Neck Neck: Supple, no meningeal sign - Cardiac Cardiac: RRR, No murmur - Respiratory Respiratory: Clear bilaterally - Abdomen Abdomen: Normal bowel sounds, Soft, Non tender, Non distended - Back Back: Other (There is tenderness to palpation on the right lumbar paraspinal region there is no midline tenderness to palpation of the cervical thoracic lumbar sacral spine there is no midline step-offs or deformities. The patient is able to ambulate she has a normal gait she can stand on her heels and on her toes her great toes are intact to proprioception bilaterally her sensations intact to light touch she has a negative straight leg test on bilateral lower extremities her reflexes are 2+ and symmetric in bilateral Achilles and patellar reflexes. Her strength is 5 out of 5 in bilateral upper and lower extremities.) - Derm Derm: Warm and dry - Extremities Extremities: No deformity - Neuro Neuro: Alert and oriented X 3, No motor deficit, No sensory deficit - Psych Psych: Normal mood, Normal affect Results - Vitals Vitals: Vital Signs - 24 hr 10/13/19 22:50 Temperature 36.0 C L Heart Rate 97 Respiratory 16 Rate Blood Pressure 133/91 H O2 Saturation 98 Oxygen O2 Source Room air Departure - Departure Disposition: 01 Home, Self Care Clinical Impression: Back strain Qualifiers: Encounter type: initial encounter Qualified Code(s): S39.012A - Strain of muscle, fascia and tendon of lower back, initial encounter Condition: Good Instructions: ED Low Back Pain Injury Follow-Up: José Ruelas PA-C [Primary Care Provider] - Tomorrow
[2019-10-14 00:16] VITALS: BP 134/92
== END 2019-10-14 00:15 | disposition home or self-care (01) ==
LOC: ED 22:46
DX: S39.012A Strain of muscle, fascia and tendon of lower back, initial encounter (principal); W01.0XXA Fall on same level from slipping, tripping and stumbling without subsequent striking against object, initial encounter; Y93.01 Activity, walking, marching and hiking; Y92.029 Unspecified place in mobile home as the place of occurrence of the external cause
CPT/HCPCS: 99282; 99284; A9270

== ENCOUNTER 2019-12-29 08:00 | Outpatient (CLI) | payer MEDICARE, MEDICAID ==
[2019-12-29 16:56] LABS: HEMOGLOBIN A1C 0.42 g/dL; HEMOGLOBIN A1C % 5.6 % (4.6-6.2)
[2019-12-29 17:37] LABS: FOLLICLE STIMULATING HORMONE 39.42 mIU/mL
[2019-12-29 17:38] LABS: LUTEINIZING HORMONE 26.22 mIU/mL
== END 2019-12-29 23:59 | disposition home or self-care (01) ==
LOC: LAB.WCP 08:00
PROVIDERS: ATTEND Obstetrics & Gynecology
DX: N91.2 Amenorrhea, unspecified (principal); R73.9 Hyperglycemia, unspecified
CPT/HCPCS: 36415; 82670; 83001; 83002; 83036

== ENCOUNTER 2020-05-30 13:05 | Emergency (ER) | payer MEDICARE, MEDICAID ==
[2020-05-30] MEDS ORDERED: KETOROLAC 60 MG/2 ML VIAL IM STA (16:01)
--- NOTE | 2020-05-30 16:04 | ED Physician Documentation ---
History of Present Illness - Stated complaint Stated Complaint: LEG PX RT SIDE UPPER - Chief complaint Chief Complaint: Ext Problem - Additonal information Additional information: 45-year-old female presents to the emergency department for evaluation of right thigh pain that began about 1 week ago after moving into a new apartment and climbing stairs. She denies that she has any falls or trauma but has pain with weightbearing. She denies that she has any low back pain and the pain does not originate in the back. She states that it is difficult for her to find a position and comfort at night due to the pain. She denies any high blood pressure but states that she has an early diabetic. Denies possibility of last menstrual period 3 weeks ago has not been sexually active for more than 6 months Review of Systems Constitutional: reports: Reviewed and negative Eyes: reports: Reviewed and negative Ears: reports: Reviewed and negative Nose: reports: Reviewed and negative Cardiac: reports: Reviewed and negative Respiratory: reports: Reviewed and negative GI: reports: Reviewed and negative : reports: Reviewed and negative Skin: reports: Reviewed and negative Musculoskeletal: reports: Extremity pain. 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: Breast reduction - Present Medications Home Medications: Ambulatory Orders Medication Instructions Recorded Confirmed OLANZapine [ZyPREXA] 10 mg PO QPM 02/10/13 10/06/19 Calcium Carbonate [Tums (Calcium 500 mg PO ONCE PRN 10/05/19 10/06/19 Carbonate 500mg)] Divalproex Dr [Depakote Dr] 250 mg PO BID 10/05/19 10/06/19 Metformin HCl 500 mg PO DAILY 10/05/19 10/06/19 Omeprazole 20 mg PO DAILY PRN 10/05/19 10/06/19 Ibuprofen [Motrin] 600 mg PO Q6H PRN #30 tab 05/30/20 - Allergies Allergies/Adverse Reactions: Allergies Allergy/AdvReac Type Severity Reaction Status Date / Time No Known Drug Allergies Allergy Verified 05/30/20 13:27 - Social History Does the pt smoke?: No Smoking Status: Never smoker Does the pt drink ETOH?: No Does the pt have substance abuse?: No - Immunizations Immunizations are current?: Yes - POLST Patient has POLST: No PD ED PE EXPANDED - General General: Alert, No acute distress, Other (obese) - Cardiac Cardiac: Regular Rate, Radial strong equal, Femoral strong equal, Pedal strong equal - Respiratory Respiratory: Clear to ausultation marilia - Back Back: Normal exam, Normal ROM, Straight leg raise + R. No: Vertebral tenderness, Soft tissue tenderness, CVA TTP right, CVA TTP left - Derm Derm: Normal color. No: Rash - Extremities Extremities: Right thigh (Tenderness with deep palpation of the right quadriceps muscle. Normal flexion extension of the knee. Antalgic gait however. No pain in hip with full range of motion). No: Pedal edema bilateral Results - Vitals Vitals: Vital Signs - 24 hr 05/30/20 05/30/20 13:27 16:37 Temperature 36.6 C Heart Rate 92 89 Respiratory 16 18 Rate Blood Pressure 136/89 H 126/89 H O2 Saturation 98 97 Oxygen O2 Source Room air PD MEDICAL DECISION MAKING - ED course Complexity details: reviewed results, considered differential, d/w patient ED course: To the emergency department with right thigh pain for nearly 1 week. This pain began after climbing numerous amounts of stairs as she is moving into a new apartment. She denies any low back pain. On exam she does have a positive straight leg exam but without pain in the back my suspicion for sciatica is lower. I do favor that this may be a quadriceps strain versus meralgia paresthetica. - no swelling, erythema and calf pain; suspicion for DVT is low by wells criteria - pt given toradol in the ED with mid relief or pain. will recommend motrin at home for 5-7 days. close f/u with pcp. Departure - Departure Disposition: 01 Home, Self Care Clinical Impression: Right leg pain Condition: Stable Record reviewed to determine appropriate education?: Yes Instructions: ED Strain Muscle Ext Prescriptions: Ibuprofen [Motrin] 600 mg PO Q6H PRN #30 tab PRN Reason: Pain Comments: I would like you to schedule an appointment with your primary care provider. I suspected that you have either strained your quadriceps muscle with repeated stair climbing or you may have an inflamed nerve in your lower leg. This is called lateral femoral cutaneous nerve syndrome. If at any point you develop leg swelling have redness difficulty breathing or calf pain please return to the emergency department for a second evaluation. I have also prescribed ibuprofen to help with pain
[2020-05-30 16:37] VITALS: BP 126/89
== END 2020-05-30 16:50 | disposition home or self-care (01) ==
LOC: ED 13:05
DX: M79.651 Pain in right thigh (principal)
CPT/HCPCS: 96372; 99283; 99284

== ENCOUNTER 2020-08-01 16:56 | Emergency (ER) | payer MEDICARE, MEDICAID ==
[2020-08-01] MEDS ORDERED: KETOROLAC 60 MG/2 ML VIAL IM STA (18:36)
--- NOTE | 2020-08-01 18:43 | ED Physician Documentation ---
History of Present Illness - Stated complaint Stated Complaint: RT LEG PX - Chief complaint Chief Complaint: General - History of Present Illness Timing: Yesterday, How many days ago (1) - Additonal information Additional information: 45-year-old female presents to the emergency department for evaluation of acute low back pain that radiates to the right leg. Denies any falls or trauma. No fevers, no saddle anesthesia no dysuria urgency or frequency. She feels that her right knee is swollen though this is a subjective finding only. She has an mildly antalgic gait. She has no history of sciatica or low back pain in the past. She has not taken anything for analgesia at home. no fevers, saddle anesthesia. no parathesias of BLE. no hx of clots or cancer no hx of IVDU Review of Systems Constitutional: reports: Reviewed and negative Ears: reports: Reviewed and negative Nose: reports: Reviewed and negative Throat: reports: Reviewed and negative Cardiac: reports: Reviewed and negative Respiratory: reports: Reviewed and negative GI: reports: Reviewed and negative : reports: Reviewed and negative Skin: reports: Reviewed and negative Musculoskeletal: reports: Back pain Neurologic: reports: Reviewed and negative Psychiatric: reports: Reviewed and negative PD PAST MEDICAL HISTORY - Past Medical History Cardiovascular: None Respiratory: None Neuro: None Endocrine/Autoimmune: None GI: GERD, Other 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 : None HEENT: None Psych: Depression, Anxiety, Schizophrenia Musculoskeletal: None Derm: None - Past Surgical History Past Surgical History: Yes /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: Breast reduction - Present Medications Home Medications: Ambulatory Orders Medication Instructions Recorded Confirmed OLANZapine [ZyPREXA] 10 mg PO QPM 02/10/13 10/06/19 Calcium Carbonate [Tums (Calcium 500 mg PO ONCE PRN 10/05/19 10/06/19 Carbonate 500mg)] Divalproex Dr [Depakote Dr] 250 mg PO BID 10/05/19 10/06/19 Metformin HCl 500 mg PO DAILY 10/05/19 10/06/19 Omeprazole 20 mg PO DAILY PRN 10/05/19 10/06/19 Ibuprofen [Motrin] 600 mg PO Q6H PRN #30 tab 05/30/20 Ibuprofen [Motrin] 600 mg PO Q6H PRN #30 tab 08/01/20 - Allergies Allergies/Adverse Reactions: Allergies Allergy/AdvReac Type Severity Reaction Status Date / Time No Known Drug Allergies Allergy Verified 08/01/20 17:13 - Social History Does the pt smoke?: No Smoking Status: Never smoker Does the pt drink ETOH?: No Does the pt have substance abuse?: No - Immunizations Immunizations are current?: Yes - POLST Patient has POLST: No PD ED PE EXPANDED - General General: Alert, No acute distress, Well developed/nourished - HEENT HEENT: Atraumatic, PERRL - Back Back: Soft tissue tenderness (Mild tenderness of the right lower paraspinous muscles and pain at the right SI joint. Full range of motion forward flexion of lumbar spine.Mild tenderness of the right lower paraspinous muscles and pain at the right SI joint. Full range of motion forward flexion of lumbar spine. ), Straight leg raise + R. No: Vertebral tenderness, Straight leg raise + L - Extremities Extremities: Normal, Right knee (Normal flexion extension of knee without laxity. No swelling or erythema.), Left knee (Normal flexion and extension of left knee without laxity. No swelling or erythema), Other (motor strength 5/5 BLE. 2+ patellar reflexes bilaterally. normal gait). No: Tenderness Results - Vitals Vitals: Vital Signs - 24 hr 08/01/20 17:09 Temperature 36.0 C L Heart Rate 88 Respiratory 14 Rate Blood Pressure 125/88 H O2 Saturation 99 Oxygen O2 Source Room air PD MEDICAL DECISION MAKING - ED course Complexity details: reviewed results, re-evaluated patient, considered differential, d/w patient ED course: 45-year-old female presents to the emergency department for evaluation of acute right low back pain that radiates down to the right thigh and knee. On exam there is no swelling or erythema the knee no falls or trauma. In fact exam of the knees is unremarkable. She did have a tenderness in the right lower paraspinous and SI joint. She also had a positive straight leg exam on the right. This time I feel that her findings are most consistent with low back pain and sciatica. Patient was given 60 mg of ketorolac here in the emergency department and had marked relief of her pain. Will rx motrin on dc and advise close f/u with pcp. Emergent return precautions Departure - Departure Disposition: 01 Home, Self Care Clinical Impression: Sciatica Qualifiers: Laterality: right Qualified Code(s): M54.31 - Sciatica, right side Condition: Stable Record reviewed to determine appropriate education?: Yes Instructions: ED Sciatica Prescriptions: Ibuprofen [Motrin] 600 mg PO Q6H PRN #30 tab PRN Reason: Pain Comments: Toy as we discussed the pain in your lower back sounds most like sciatica. I do recommend that you take Tylenol [id number] or the ibuprofen as prescribed for pain. I would also recommend that you do special stretching exercises to help with the sciatica. Please schedule a follow-up appointment with your primary care doctor for reevaluation. In the long-term you may benefit from physical therapy for evaluation from a chiropractor. Please return to the emergency department if you have fevers, numbness or tingling between your legs, cannot control your bowel or bladder functions or feel that your pain is not improving with the ibuprofen at home.
[2020-08-01 19:41] VITALS: BP 129/95
== END 2020-08-01 19:45 | disposition home or self-care (01) ==
LOC: ED 16:56
DX: M54.41 Lumbago with sciatica, right side (principal)
CPT/HCPCS: 96372; 99283

== ENCOUNTER 2020-09-27 08:00 | Outpatient (CLI) | payer MEDICARE, MEDICAID ==
--- NOTE | 2020-09-27 15:07 | XRAY Report ---
PROCEDURE: Knee 3 View RT INDICATIONS: R LEG PX TECHNIQUE: 3 views of the right knee(s) were acquired. COMPARISON: None. FINDINGS: Bones: No fractures or dislocations. No suspicious bony lesions. Note is made of a mild degree of m edial compartment joint space narrowing without effusion or loose body Soft tissues: No joint effusion. No suspicious soft tissue calcifications. IMPRESSION: No acute trauma found. Mild medial compartment knee joint space narrowing indicating mil d degenerative osteoarthritis. Reviewed by: Mihai Trevizo MD on 09/27/2020 3:06 PM PST Approved by: Mihai Trevizo MD on 09/27/2020 3:06 PM PST Station ID: [id number]
--- NOTE | 2020-09-27 15:07 | XRAY Report ---
PROCEDURE: Hip w/Pelvis 1V RT INDICATIONS: R LEG PX TECHNIQUE: AP pelvis with lateral view(s) of the unilateral right hip(s). COMPARISON: None. FINDINGS: Bones: No fractures or dislocations but there is a symmetric hip joint osteoarthritis, moderate on t he right and mild to moderate on the left. Pelvic ring appears intact. No suspicious bony lesions. Soft tissues: The visualized bowel gas pattern is normal. No suspicious soft tissue calcifications. IMPRESSION: Asymmetric right greater than left hip joint osteoarthritis without trauma. Reviewed by: Mihai Trevizo MD on 09/27/2020 3:05 PM PST Approved by: Mihai Trevizo MD on 09/27/2020 3:05 PM PST Station ID: [id number]
== END 2020-09-27 23:59 | disposition home or self-care (01) ==
LOC: DI.N 08:00
PROVIDERS: ATTEND Family Medicine
DX: M79.604 Pain in right leg (principal); M17.11 Unilateral primary osteoarthritis, right knee; M16.0 Bilateral primary osteoarthritis of hip

== ENCOUNTER 2020-10-02 23:29 | Emergency (ER) | payer MEDICARE, MEDICAID ==
--- NOTE | 2020-10-03 00:42 | ED Physician Documentation ---
PD HPI LOWER EXT INJURY - Stated complaint Stated Complaint: RT LEG PX - Chief complaint Chief Complaint: Ext Problem - History obtained from History obtained from: Patient - History of Present Illness PD HPI LOW EXT INJURY LOCATION: Right, Other (lower back into right posterior thigh/leg) Type of injury: No: Fall, Twist Where injury occurred: Home Timing - onset: Yesterday (onset current episode yesterday. Has had this intermittently for few months. Dx as sciatic. No noted injury with initial onset. Has had xrays showing some arthritis.) Timing - details: Gradual onset, Still present, Waxing and waning Worsened by: Moving Associated symptoms: No: Weakness, Numbness Similar symptoms before: Diagnosis (low back pain with sciatic.) Review of Systems Constitutional: denies: Fever Nose: denies: Rhinorrhea / runny nose, Congestion Throat: denies: Sore throat Respiratory: denies: Cough GI: denies: Abdominal Pain : denies: Incontinent Skin: denies: Rash, Lesions Musculoskeletal: reports: Back pain Neurologic: denies: Focal weakness, Numbness PD PAST MEDICAL HISTORY - Past Medical History Past Medical History: Yes Cardiovascular: None Respiratory: None Neuro: None Endocrine/Autoimmune: None GI: GERD, Other 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 : 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 HEENT: None Psych: Depression, Anxiety, Schizophrenia Musculoskeletal: None Derm: None - Past Surgical History 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 Surgical History: 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: Breast 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 - Present Medications Home Medications: Ambulatory Orders Medication Instructions Recorded Confirmed OLANZapine [ZyPREXA] 10 mg PO QPM 02/10/13 10/06/19 Calcium Carbonate [Tums (Calcium 500 mg PO ONCE PRN 10/05/19 10/06/19 Carbonate 500mg)] Divalproex [Odell Sales] 250 mg PO BID 10/05/19 10/06/19 Metformin HCl 500 mg PO DAILY 10/05/19 10/06/19 Ibuprofen [Motrin] 600 mg PO Q6H PRN #30 tab 08/01/20 Acetaminophen [Tylenol] 325 mg PO Q6H #60 tablet 10/03/20 Famotidine [Pepcid] 20 mg PO DAILY 10/03/20 10/03/20 Hydrocodone/Acetaminophen [Bena 1 each PO Q6H PRN #20 tablet 10/03/20 5-325 Tablet] dexAMETHasone [Decadron] 4 mg PO DAILY #5 tablet 10/03/20 tiZANidine [Zanaflex] 4 mg PO Q8H PRN #25 tablet 10/03/20 - Allergies Allergies/Adverse Reactions: Allergies Allergy/AdvReac Type Severity Reaction Status Date / Time No Known Drug Allergies Allergy Verified 10/02/20 23:31 - Social History Does the pt smoke?: No Smoking Status: Never smoker Does the pt drink ETOH?: No Does the pt have substance abuse?: No - Immunizations Immunizations are current?: Yes - POLST Patient has POLST: No PD ED PE NORMAL - Vitals Vital signs reviewed: Yes - General General: Alert and oriented X 3, No acute distress, Well developed/nourished - Back Back: No CVA TTP, No spinal TTP (some tenderness in lower back at SI area. No rash nor sores. ) - Derm Derm: Normal color, Warm and dry - Extremities Extremities: No edema, No calf tenderness / cord - Neuro Neuro: No motor deficit, No sensory deficit, Other (normal reflexes at knees.) Results - Vitals Vitals: Vital Signs - 24 hr 10/02/20 10/03/20 23:31 01:30 Temperature 36.5 C Heart Rate 85 86 Respiratory 16 16 Rate Blood Pressure 145/96 H 121/82 H O2 Saturation 99 98 Oxygen O2 Source Room air PD MEDICAL DECISION MAKING - ED course Complexity details: considered differential (has had just NSAIDs for this in the past. Can treat with steroid, muscle relaxant and short term pain meds. Refer back to PCP for PT. Encourage chiropractic and ROM exercises. No red flags for urgent imaging.), d/w patient Departure - Departure Disposition: Home, Self Care Clinical Impression: Low back pain Qualifiers: Chronicity: acute Back pain laterality: right Sciatica presence: with sciatica Sciatica laterality: sciatica of right side Qualified Code(s): M54.41 - Lumbago with sciatica, right side Condition: Stable Record reviewed to determine appropriate education?: Yes Instructions: ED Sciatica Follow-Up: [facility] [Provider Group] Prescriptions: dexAMETHasone [Decadron] 4 mg PO DAILY #5 tablet Hydrocodone/Acetaminophen [Bena 5-325 Tablet] 1 each PO Q6H PRN #20 tablet PRN Reason: Pain Acetaminophen [Tylenol] 325 mg PO Q6H #60 tablet tiZANidine [Zanaflex] 4 mg PO Q8H PRN #25 tablet PRN Reason: Spasms Comments: Heat and gentle range of motion for the back to reduce stiffness. You can seek physical treatments such as massage or chiropractic. Also follow-up with your primary care to see if they can initiate some physical therapy to help with the back. Use Tylenol 325 mg 4 times a day regularly. To that add Advil every 6 hours if needed for pain or hydrocodone if needed for worse pain. We will also use Decadron steroid anti-inflammatory daily for 5 more days and tizanidine muscle relaxant 3 times a day to help with muscle inflammation and spasm. Follow-up with your primary care for further treatments and hopefully initiating some physical therapy as well. Discharge Date/Time: 10/03/20 01:30
[2020-10-03] MEDS ORDERED: CHERRY SYRUP 10 ML UDC PO ONE (00:53)
[2020-10-03] MEDS ORDERED: methocarbamoL 500 MG TABLET PO STA (00:53)
[2020-10-03] MEDS ORDERED: DEXAMETHASONE 10 MG/ML VIAL PO STA (00:53)
[2020-10-03] MEDS ORDERED: HYDROcod/ACETAM 5/325 MG TABLET PO STA (00:53)
[2020-10-03] MEDS ORDERED: ACETAMINOPHEN 500 MG TABLET PO STA (00:53)
[2020-10-03 01:31] VITALS: BP 121/82
== END 2020-10-03 01:30 | disposition home or self-care (01) ==
LOC: ED 23:29
DX: M54.41 Lumbago with sciatica, right side (principal)
CPT/HCPCS: 99283; 99284; A9270

== ENCOUNTER 2021-02-25 11:42 | Emergency (ER) | payer MEDICARE, MEDICAID ==
[2021-02-25 12:22] LABS: BASOPHILS % (AUTO) 0.1 %; EOSINOPHILS % (AUTO) 1.2 %; HGB - HEMOGLOBIN 11.6 g/dL (12.0-16.0); LYMPHOCYTES % (AUTO) 33.1 %; MEAN CORPUSCULAR HEMOGLOBIN 23.6 pg (27.0-31.0); MEAN CORPUSCULAR HGB CONC 31.4 g/dL (32.0-36.0); MEAN CORPUSCULAR VOLUME 75.4 fL (81.0-99.0); MEAN PLATELET VOLUME 9.7 fL (7.9-10.8); MONOCYTES % (AUTO) 7.3 %; PLT - PLATELET COUNT 316 10^3/uL (130-450); RED BLOOD COUNT 4.91 10^6/uL (4.20-5.40); RED CELL DISTRIBUTION WIDTH 18.2 % (12.0-15.0)
--- NOTE | 2021-02-25 12:28 | ED Physician Documentation ---
PD HPI NVD - Stated complaint Stated Complaint: VOMITING - Chief complaint Chief Complaint: Abd Pain - History obtained from History obtained from: Patient - History of Present Illness Timing - onset: How many days ago (2) Timing - duration: Days (2) Timing - details: Abrupt onset, Still present Associated symptoms: Abdominal pain (upper abd cramping pain), Hematemesis (noted some coffee ground appearacne since yesterday and bilious. No bright red blood.), Melena (states dark soft stool yesterday). No: Fever Contributing factors: No: Sick contact, Travel, Recent antibiotics, Alcohol use Improved by: No: Vomiting Worsened by: Eating Similar symptoms before: Diagnosis (history of GERD and some gastritis but not usually this degree of symptoms.) Recently seen: Not recently seen Review of Systems Constitutional: denies: Fever, Chills Nose: denies: Rhinorrhea / runny nose, Congestion Throat: denies: Sore throat Respiratory: denies: Cough Musculoskeletal: denies: Neck pain, Back pain Neurologic: denies: Generalized weakness, Focal weakness, Numbness, Near syncope Psychiatric: reports: Anxiety Immunocompromised: denies: Immunocompromised PD PAST MEDICAL HISTORY - Past Medical History Past Medical History: Yes Cardiovascular: None Respiratory: None Neuro: None Endocrine/Autoimmune: Other GI: GERD, Other 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 : None HEENT: None Psych: Depression, Anxiety, Schizophrenia Musculoskeletal: None Derm: None - Past Surgical History Past Surgical History: Yes /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: Breast reduction - Present Medications Home Medications: Ambulatory Orders Medication Instructions Recorded Confirmed OLANZapine [ZyPREXA] 10 mg PO QPM 02/10/13 02/25/21 Divalproex [Odell Sales] 250 mg PO BID 10/05/19 02/25/21 Metformin HCl 500 mg PO DAILY 10/05/19 02/25/21 Famotidine [Pepcid] 20 mg PO DAILY #15 tablet 02/25/21 HYDROcod/ACETAM 5/325 [[place] 5/325] 1 ea PO Q6H PRN #14 tablet 02/25/21 Ondansetron Odt [Zofran] 4 mg TL Q6H PRN #10 tablet 02/25/21 - Allergies Allergies/Adverse Reactions: Allergies Allergy/AdvReac Type Severity Reaction Status Date / Time No Known Drug Allergies Allergy Verified 02/25/21 11:51 - Social History Does the pt smoke?: No Smoking Status: Never smoker Does the pt drink ETOH?: No Does the pt have substance abuse?: No - Immunizations Immunizations are current?: Yes - POLST Patient has POLST: No PD ED PE NORMAL - Vitals Vital signs reviewed: Yes - General General: Alert and oriented X 3, Well developed/nourished, Other (appears uncomfortable.) - HEENT HEENT: Pharynx benign - Neck Neck: Supple, no meningeal sign, No adenopathy - Cardiac Cardiac: RRR (mild tachycardia), No murmur - Respiratory Respiratory: Clear bilaterally - Abdomen Abdomen: Normal bowel sounds, Soft, Non distended, No organomegaly, Other (tender epigastric with guarding but no percussion nor rebound tenderness. ) - Female Female : Deferred - Rectal Rectal: Deferred - Back Back: No CVA TTP - Extremities Extremities: No edema, No calf tenderness / cord - Neuro Neuro: Alert and oriented X 3, No motor deficit, Normal speech Results - Vitals Vitals: Vital Signs - 24 hr 02/25/21 02/25/21 02/25/21 11:48 11:57 14:03 Temperature 36.3 C L 36.2 C L Heart Rate 101 H 94 89 Respiratory 16 18 18 Rate Blood Pressure 142/99 H 154/108 H 131/76 H O2 Saturation 97 97 97 02/25/21 15:15 Temperature 36.2 C L Heart Rate 88 Respiratory 16 Rate Blood Pressure 117/79 O2 Saturation 96 Oxygen O2 Source Room air - Labs Labs: Laboratory Tests 02/25/21 02/25/21 02/25/21 12:10 12:10 12:10 WBC 7.0 RBC 4.91 Hgb 11.6 L Hct 37.0 MCV 75.4 L MCH 23.6 L MCHC 31.4 L RDW 18.2 H Plt Count 316 MPV 9.7 Neut # (Auto) Not Reportable Lymph # (Auto) Not Reportable [place] # (Auto) Not Reportable Eos # (Auto) Not Reportable Baso # (Auto) Not Reportable Absolute Nucleated RBC Not Reportable Total Counted 100 Band Neuts % (Manual) 0 Abnorm Lymph % (Manual) 0 Nucleated RBC % Not Reportable Neutrophils # (Manual) 4.8 Lymphocytes # (Manual) 2.2 Monocytes # (Manual) 0.1 Eosinophils # (Manual) 0.0 Basophils # (Manual) 0.0 Differential Comment MANUAL DIFFERENTIAL WBC Morphology 1+ SMUDGE CELLS Platelet Estimate NORMAL (130-450,000) Platelet Morphology NORMAL APPEARANCE RBC Morph Micro Appear NORMAL APPEARANCE Sodium 140 Potassium 3.8 Chloride 102 Carbon Dioxide 27 Anion Gap 11.0 BUN 16 Creatinine 0.6 Estimated GFR (MDRD) 108 Glucose 100 Calcium 9.1 Total Bilirubin 0.6 AST 23 ALT 24 Alkaline Phosphatase 76 Total Protein 7.8 Albumin 4.2 Globulin 3.6 Albumin/Globulin Ratio 1.2 Lipase 27 Urine Color Urine Clarity Urine pH Ur Specific [place] Urine Protein Urine Glucose (UA) Urine Ketones Urine Occult Blood Urine Nitrite Urine Bilirubin Urine Urobilinogen Ur Leukocyte Esterase Urine RBC Urine WBC Ur Squamous Epith Cells Urine Bacteria Ur Microscopic Review Urine Culture Comments Urine HCG, Qual Last Dose Date UNKNOWN Last Dose Time UNKNOWN Urine Opiates Screen Ur Oxycodone Screen Urine Methadone Screen Ur Propoxyphene Screen Ur Barbiturates Screen Valproic Acid < 10.0 Ur Tricyclics Screen Ur Phencyclidine Scrn Ur Amphetamine Screen U Methamphetamines Scrn U Benzodiazepines Scrn Urine Cocaine Screen U Cannabinoids Screen 02/25/21 12:45 WBC RBC Hgb Hct MCV MCH MCHC RDW Plt Count MPV Neut # (Auto) Lymph # (Auto) [place] # (Auto) Eos # (Auto) Baso # (Auto) Absolute Nucleated RBC Total Counted Band Neuts % (Manual) Abnorm Lymph % (Manual) Nucleated RBC % Neutrophils # (Manual) Lymphocytes # (Manual) Monocytes # (Manual) Eosinophils # (Manual) Basophils # (Manual) Differential Comment WBC Morphology Platelet Estimate Platelet Morphology RBC Morph Micro Appear Sodium Potassium Chloride Carbon Dioxide Anion Gap BUN Creatinine Estimated GFR (MDRD) Glucose Calcium Total Bilirubin AST ALT Alkaline Phosphatase Total Protein Albumin Globulin Albumin/Globulin Ratio Lipase Urine Color YELLOW Urine Clarity CLOUDY Urine pH 7.5 Ur Specific [place] 1.020 Urine Protein 30 H Urine Glucose (UA) NEGATIVE Urine Ketones NEGATIVE Urine Occult Blood NEGATIVE Urine Nitrite NEGATIVE Urine Bilirubin NEGATIVE Urine Urobilinogen 0.2 (NORMAL) Ur Leukocyte Esterase LARGE H Urine RBC 0-5 Urine WBC 11-25 H Ur Squamous Epith Cells MANY Squamous H Urine Bacteria Moderate H Ur Microscopic Review INDICATED Urine Culture Comments NOT INDICATED Urine HCG, Qual NEGATIVE Last Dose Date Last Dose Time Urine Opiates Screen NEGATIVE Ur Oxycodone Screen NEGATIVE Urine Methadone Screen NEGATIVE Ur Propoxyphene Screen NEGATIVE Ur Barbiturates Screen NEGATIVE Valproic Acid Ur Tricyclics Screen NEGATIVE Ur Phencyclidine Scrn NEGATIVE Ur Amphetamine Screen NEGATIVE U Methamphetamines Scrn NEGATIVE U Benzodiazepines Scrn NEGATIVE Urine Cocaine Screen NEGATIVE U Cannabinoids Screen NEGATIVE - Rads (name of study) abd CT Radiology: Prelim report reviewed (no acute process to explain the pain.), See rad report PD MEDICAL DECISION MAKING - ED course Complexity details: reviewed results, re-evaluated patient (feeling better with IV fluids and meds. Labs and CT okay. By symptoms, presume gastritis with some bleeding, but is stable with vitals and good blood count. ), considered differential, d/w patient Departure - Departure Disposition: Home, Self Care Clinical Impression: Epigastric abdominal pain Gastritis, acute Qualifiers: Gastritis type: unspecified gastritis Gastritis bleeding: with bleeding Qualified Code(s): K29.01 - Acute gastritis with bleeding Condition: Stable Record reviewed to determine appropriate education?: Yes Instructions: ED PUD Vs Gastritis Follow-Up: ADRIEL MARCUS, MSN, H[employer]ESS [employer] SALES REPRESENTATIVE [Primary Care Provider] - Prescriptions: HYDROcod/ACETAM 5/325 [[place] 5/325] 1 ea PO Q6H PRN #14 tablet PRN Reason: Pain Famotidine [Pepcid] 20 mg PO DAILY #15 tablet Ondansetron Odt [Zofran] 4 mg TL Q6H PRN #10 tablet PRN Reason: Nausea / Vomiting Comments: Your symptoms sound likely to be gastritis or ulcer of the stomach with some bleeding, given the dark stool. Your blood count is good so does not seem to be excessive amount. At this point I would have you increase your omeprazole to twice daily and continue the sucralfate. Add famotidine daily for the next 10 days. Continue your other usual medications. Add ondansetron if needed for nausea and Tylenol if needed for pains, or Hydrocodone for worse pain. No NSAID use. Follow-up with your primary care this coming week for follow-up, call for an appointment. Return to the ER if worse. If you are unable to get a follow-up this week with your primary care, you could use the walk-in clinics alternatively. Discharge Date/Time: 02/25/21 15:30
[2021-02-25 12:31] LABS: ABNORMAL LYMPHS % (MANUAL) 0 %; BAND NEUTROPHILS % (MANUAL) 0 %
[2021-02-25 12:41] LABS: ALBUMIN 4.2 g/dL (3.2-5.5); ALBUMIN/GLOBULIN RATIO 1.2 (1.0-2.2); BILIRUBIN,TOTAL 0.6 mg/dL (0.2-1.0); CALCIUM 9.1 mg/dL (8.5-10.3); CREATININE 0.6 mg/dL (0.4-1.0); POTASSIUM 3.8 mmol/L (3.5-5.0); TOTAL PROTEIN 7.8 g/dL (6.7-8.2)
[2021-02-25] MEDS ORDERED: SODIUM CHLORIDE 0.9% 1,000 ML IV STA (12:41)
[2021-02-25] MEDS ORDERED: MORPHINE 2 MG/ML CARPUJECT IVP STA (12:41)
[2021-02-25] MEDS ORDERED: ONDANSETRON 4 MG/2 ML VIAL IVP STA (12:41)
[2021-02-25] MEDS ORDERED: IOVERSOL 320 100 ML VIAL IVP ONE ×2 (12:45→13:51)
[2021-02-25 12:48] LABS: DIFFERENTIAL COMMENT MANUAL DIFFERENTIAL; LYMPHOCYTES # (MANUAL) 2.2 10^3/uL (1.5-3.5); LYMPHOCYTES % (MANUAL) 31 %; MONOCYTES # (MANUAL) 0.1 10^3/uL (0.0-1.0); NEUTROPHILS # (MANUAL) 4.8 10^3/uL (1.5-6.6); PLATELET ESTIMATE, MANUAL NORMAL (130-450,000) (NORMAL); PLATELET MORPHOLOGY NORMAL APPEARANCE (NORMAL); RBC MORPHOLOGY (MULTIPLE) NORMAL APPEARANCE (NORMAL); WBC MORPHOLOGY (MULTIPLE) 1+ SMUDGE CELLS (NORMAL)
[2021-02-25 12:49] LABS: MUDS CUTOFF CONCENTRATIONS CUTOFF CONC BELOW:
[2021-02-25 12:53] LABS: BILIRUBIN,URINE NEGATIVE (NEGATIVE); GLUCOSE, URINE (UA) NEGATIVE (NEGATIVE); KETONES,URINE (UA) NEGATIVE (NEGATIVE); LEUKOCYTE ESTERASE, URINE LARGE (NEGATIVE); NITRITE,URINE NEGATIVE (NEGATIVE); OCCULT BLOOD,URINE NEGATIVE (NEGATIVE); PH,URINE 7.5 PH (5.0-7.5); PROTEIN,URINE 30 mg/dL (NEGATIVE); UROBILINOGEN,URINE 0.2 (NORMAL) E.U./dL (NORMAL)
[2021-02-25 12:56] LABS: CLARITY,URINE CLOUDY (CLEAR); HCG UR QUAL NEGATIVE
[2021-02-25 13:00] LABS: BACTERIA,URINE Moderate /HPF (None Seen); RBC,URINE 0-5 /HPF (0-5); SQUAMOUS EPITHELIAL CELL,UR MANY Squamous (<= Few)
[2021-02-25 13:01] LABS: AMPHETAMINE SCREEN,URINE NEGATIVE (NEGATIVE); BARBITURATE SCREEN,UR NEGATIVE (NEGATIVE); BENZODIAZEPINES SCREEN, URINE NEGATIVE (NEGATIVE); COCAINE SCREEN URINE NEGATIVE (NEGATIVE); METHADONE SCREEN, URINE NEGATIVE (NEGATIVE); METHAMPHETAMINES SCREEN, URINE NEGATIVE (NEGATIVE); OPIATE SCREEN, URINE NEGATIVE (NEGATIVE); OXYCODONE SCREEN, URINE NEGATIVE (NEGATIVE); PROPOXYPHENE SCREEN, URINE NEGATIVE (NEGATIVE); THC CANNABINOID SCREEN, URINE NEGATIVE (NEGATIVE); TRICYCLIC ANTIDEPRESSANT,URINE NEGATIVE (NEGATIVE)
--- NOTE | 2021-02-25 13:28 | CT Report ---
PROCEDURE: Abdomen/Pelvis W INDICATIONS: vomiting and general abd pain CONTRAST: IV CONTRAST: Optiray 320 ml: 100 PO CONTRAST: *NO PO CONTRAST TECHNIQUE: After the administration of nonionic contrast, 5 mm thick sections acquired from the diaphragms to th e symphysis. 5 mm thick coronal and sagittal reformats were acquired. For radiation dose reduction, the following was used: automated exposure control, adjustment of mA and/or kV according to patient size. COMPARISON: Prior pelvic ultrasound 04/07/2019. FINDINGS: Image quality: Excellent. ABDOMEN: Lung bases: Lung bases are clear. Heart size is normal. Solid organs: Liver and spleen are normal in size and enhancement. Gallbladder appears normal Bili suri system is non dilated. Pancreas enhances normally. No adrenal nodules. Kidneys demonstrate nor mal size and enhancement, without hydronephrosis. Peritoneum and bowel: Bowel loops demonstrate normal wall thickness and caliber. No free fluid or a ir. Nodes and vessels: No retroperitoneal or mesenteric adenopathy by size criteria. Aorta and inferior vena cava are normal in size. Miscellaneous: No ventral hernias. PELVIS: Genitourinary: Bladder wall thickness is normal. Miscellaneous: No inguinal hernias or adenopathy. A normal appendix is found at the right lower marci drant. Bones: No suspicious bony lesions. No vertebral body compression fractures. IMPRESSION: No sign of urinary tract stone or obstruction, gallbladder appears normal. Normal append ix found right lower quadrant. Source of current symptomatology is not found. Reviewed by: Mihai Trevizo MD on 02/25/2021 12:27 PM MIGUEL Approved by: Mihai Trevizo MD on 02/25/2021 12:27 PM AKDT Station ID: [id number]
[2021-02-25 14:16] LABS: VALPROIC ACID (DEPAKOTE) < 10.0 ug/mL
[2021-02-25] MEDS ORDERED: FAMOTIDINE 20 MG/2 ML VIAL IVP STA (14:25)
[2021-02-25] MEDS ORDERED: HYDROmorphone 1 MG/ML CARPUJECT IVP STA (14:25)
[2021-02-25 15:16] VITALS: BP 117/79
== END 2021-02-25 15:30 | disposition home or self-care (01) ==
LOC: ED 11:42
DX: K29.01 Acute gastritis with bleeding (principal)
CPT/HCPCS: 36415; 74177; 80053; 80164; 80306; 81001; 81025; 83690; 85025; 96361; 96374; 96375; 99284; J1170; Q9967; 81003; 87086

== ENCOUNTER 2021-03-03 12:35 | Emergency (ER) | payer MEDICARE, MEDICAID ==
[2021-03-03 13:10] LABS: BASOPHILS % (AUTO) 0.1 %; EOSINOPHILS % (AUTO) 0.1 %; HCT - HEMATOCRIT 39.7 % (37.0-47.0); HGB - HEMOGLOBIN 11.7 g/dL (12.0-16.0); LYMPHOCYTES # (AUTO) 2.3 10^3/uL (1.5-3.5); LYMPHOCYTES % (AUTO) 31.9 %; MEAN CORPUSCULAR HGB CONC 29.5 g/dL (32.0-36.0); MEAN PLATELET VOLUME 9.7 fL (7.9-10.8); MONOCYTES # (AUTO) 0.4 10^3/uL (0.0-1.0); MONOCYTES % (AUTO) 5.9 %; NEUTROPHILS # (AUTO) 4.5 10^3/uL (1.5-6.6); NEUTROPHILS % (AUTO) 61.7 %; PLT - PLATELET COUNT 394 10^3/uL (130-450); RED BLOOD COUNT 5.09 10^6/uL (4.20-5.40); WHITE BLOOD COUNT 7.3 x10^3/uL (4.8-10.8)
[2021-03-03] MEDS ORDERED: SODIUM CHLORIDE 0.9% 1,000 ML IV STA (13:17)
[2021-03-03] MEDS ORDERED: PANTOPRAZOLE 80 MG in SODIUM CHLORIDE 0.9% 100ML 100 ML IV STA (13:17)
[2021-03-03] MEDS ORDERED: ONDANSETRON 4 MG/2 ML VIAL IVP STA (13:17)
--- NOTE | 2021-03-03 13:20 | ED Physician Documentation ---
History of Present Illness - Stated complaint Stated Complaint: VOMITING,RIGHT SIDE PX - Chief complaint Chief Complaint: Abd Pain - Additonal information Additional information: 45-year-old female presents the emergency department for evaluation of 3 days uncontrolled abdominal pain and vomiting. She states that most of the pain is upper epigastric and she has been unable to keep very little down including clear liquids for 3 days. She became concerned because this morning when she vomited she vomited bright red blood that she estimates to be about 3 tablespoons. She denies melena or hematochezia. No history of similar. She denies tobacco or alcohol use. She is not anticoagulated. She does not take NSAID medications. No history of previous hematic emesis. No history of EGD or colonoscopy. Denies previous surgical history. Past medical history includes depression only for which she takes to unknown antidepressants. Very flat affect in the room. Review of Systems Constitutional: denies: Fever, Chills Eyes: reports: Reviewed and negative Ears: reports: Reviewed and negative Nose: reports: Reviewed and negative Throat: reports: Reviewed and negative Cardiac: reports: Reviewed and negative Respiratory: reports: Reviewed and negative GI: reports: Abdominal Pain, Nausea, Vomiting, Hematemesis. 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 - Present Medications Home Medications: Ambulatory Orders Medication Instructions Recorded Confirmed OLANZapine [ZyPREXA] 10 mg PO QPM 02/10/13 03/03/21 Divalproex [Depesther Sales] 250 mg PO BID 10/05/19 03/03/21 Metformin HCl 500 mg PO DAILY 10/05/19 03/03/21 Famotidine [Pepcid] 20 mg PO DAILY #15 tablet 02/25/21 03/03/21 Omeprazole 40 mg PO BID #60 03/03/21 Ondansetron Odt [Zofran] 4 mg TL Q6H PRN #10 tablet 03/03/21 Sucralfate [Carafate] 1 gm PO Q6H #60 tablet 03/03/21 - Allergies Allergies/Adverse Reactions: Allergies Allergy/AdvReac Type Severity Reaction Status Date / Time No Known Drug Allergies Allergy Verified 03/03/21 12:48 - Social History Does the pt smoke?: No Smoking Status: Never smoker Does the pt drink ETOH?: No Does the pt have substance abuse?: No - Immunizations Immunizations are current?: Yes - POLST Patient has POLST: No PD ED PE EXPANDED - General General: Alert, No acute distress, Well developed/nourished - Cardiac Cardiac: Regular Rate, Radial strong equal, Pedal strong equal, Cap refill < 2 sec. No: Murmur Present - Respiratory Respiratory: Clear to ausultation marilia. No: Distress, Labored - Abdomen Abdomen: Normal Bowel sounds, Tender to palpation, Epigastric (Mild epigastric tenderness to palpation without guarding or rebound. Negative McBurney's negative Chisholm's.) - Derm Derm: Normal color, Warm and dry - Extremities Extremities: Normal. No: Deformity, Tenderness - Neuro Neuro: Alert and Oriented X 3, CNII-XII intact. No: Confused, Disoriented - GCS Eye Opening: Spontaneous Motor: Obeys Commands Verbal: Oriented Total: 15 Results - Vitals Vitals: Vital Signs - 24 hr 03/03/21 03/03/21 12:45 14:13 Temperature 36.9 C Heart Rate 102 H 74 Respiratory 16 16 Rate Blood Pressure 143/96 H 124/80 O2 Saturation 97 97 Oxygen O2 Source Room air - Labs Labs: Laboratory Tests 03/03/21 03/03/21 03/03/21 13:01 13:01 13:20 WBC 7.3 RBC 5.09 Hgb 11.7 L Hct 39.7 MCV 78.0 L MCH 23.0 L MCHC 29.5 L RDW 18.0 H Plt Count 394 MPV 9.7 Neut # (Auto) 4.5 Lymph # (Auto) 2.3 [place] # (Auto) 0.4 Eos # (Auto) 0.0 Baso # (Auto) 0.0 Absolute Nucleated RBC 0.00 Nucleated RBC % 0.0 Sodium 142 Potassium 3.9 Chloride 104 Carbon Dioxide 25 Anion Gap 13.0 BUN 8 Creatinine 0.9 Estimated GFR (MDRD) 67 L Glucose 113 H Calcium 9.4 Total Bilirubin 0.6 AST 29 ALT 30 Alkaline Phosphatase 91 Total Protein 8.4 H Albumin 4.8 Globulin 3.6 Albumin/Globulin Ratio 1.3 Lipase 29 Urine Color YELLOW Urine Clarity CLOUDY Urine pH 5.5 Ur Specific [place] >=1.030 H Urine Protein 30 H Urine Glucose (UA) NEGATIVE Urine Ketones TRACE Urine Occult Blood NEGATIVE Urine Nitrite NEGATIVE Urine Bilirubin NEGATIVE Urine Urobilinogen 0.2 (NORMAL) Ur Leukocyte Esterase SMALL H Urine RBC 0-5 Urine WBC >25 H Ur Squamous Epith Cells MANY Squamous H Urine Bacteria Many H Urine Mucus Few Strands Ur Microscopic Review INDICATED Urine Culture Comments NOT INDICATED - Rads (name of study) CT abd Radiology: Final report received (Generalized wall thickening is seen involving the distal stomach and duodenal sweep. If clinically appropriate consider endoscopy. Small to moderate hiatal hernia seen mildly enlarged retroperitoneal lymph nodes are seen.) PD MEDICAL DECISION MAKING - ED course Complexity details: reviewed results, re-evaluated patient ED course: Was -[id number] female presents the emergency department with 3 days of epigastric pain nausea and vomiting. This morning she reported hematic emesis with about 3 tablespoons of bright red blood. None since. Here in the emergency department 1 L of IV fluids Protonix as well as Zofran. Her pain is nearly fully abated and she is now tolerating sips of p.o. Screening labs show no significant anemia. Patient denied melena or hematochezia. I do suspect that she has a stress gastritis as she does not have risk factors for esophageal variceal bleeding. No NSAID use no alcohol or tobacco use. A CT of the abdomen was completed and it does show generalized wall thickening involving the distal stomach and the duodenal sweep. This is most consistent with her presenting story of a gastritis. Findings were discussed with patient. She will be started on daily Protonix as well as Carafate. Advise close follow-up with her primary care provider. She should be referred for an EGD in the follow-up. Emergent return precautions were discussed. Departure - Departure Disposition: 01 Home, Self Care Clinical Impression: Gastritis and duodenitis Condition: Stable Record reviewed to determine appropriate education?: Yes Instructions: ED PUD Vs Gastritis Follow-Up: Eulalio Kumari MD [Provider Admit Priv/Credential] - Prescriptions: Sucralfate [Carafate] 1 gm PO Q6H #60 tablet Omeprazole 40 mg PO BID #60 Ondansetron Odt [Zofran] 4 mg TL Q6H PRN #10 tablet PRN Reason: Nausea / Vomiting Comments: Toy you are seen in the emergency department today for vomiting as well as vomiting blood. As we discussed your hemoglobin is normal. The CT scan did suggest inflammation in the lower part of the stomach and duodenum. Your case was discussed with our surgeon Dr. Kumari. He would like to see you in follow- up in office this week. Please call his office Friday to schedule that appointment. Please begin taking the omeprazole twice daily as well as the Carafate 3-4 times a day. It is important that you avoid any NSAID medication such as ibuprofen or naproxen, caffeine and spicy foods. If at any point your symptoms are worsening, you develop black stools or uncontrolled vomiting or pain please return immediately to the ER for a second evaluation.
[2021-03-03 13:22] LABS: ALBUMIN 4.8 g/dL (3.2-5.5); ALBUMIN/GLOBULIN RATIO 1.3 (1.0-2.2); BILIRUBIN,TOTAL 0.6 mg/dL (0.2-1.0); CALCIUM 9.4 mg/dL (8.5-10.3); CREATININE 0.9 mg/dL (0.4-1.0); POTASSIUM 3.9 mmol/L (3.5-5.0); TOTAL PROTEIN 8.4 g/dL (6.7-8.2)
[2021-03-03] MEDS ORDERED: PANTOPRAZOLE 40 MG VIAL ONE (13:24)
[2021-03-03 13:45] LABS: BILIRUBIN,URINE NEGATIVE (NEGATIVE); GLUCOSE, URINE (UA) NEGATIVE (NEGATIVE); KETONES,URINE (UA) TRACE mg/dL (NEGATIVE); LEUKOCYTE ESTERASE, URINE SMALL (NEGATIVE); NITRITE,URINE NEGATIVE (NEGATIVE); OCCULT BLOOD,URINE NEGATIVE (NEGATIVE); PH,URINE 5.5 PH (5.0-7.5); PROTEIN,URINE 30 mg/dL (NEGATIVE); UROBILINOGEN,URINE 0.2 (NORMAL) E.U./dL (NORMAL)
[2021-03-03 13:48] LABS: CLARITY,URINE CLOUDY (CLEAR)
[2021-03-03] MEDS ORDERED: IOVERSOL 320 100 ML VIAL IVP ONE ×2 (13:50→14:02)
[2021-03-03 13:55] LABS: WBC,URINE >25 /HPF (0-5)
[2021-03-03 13:56] LABS: BACTERIA,URINE Many /HPF (None Seen); MUCUS,URINE Few Strands; RBC,URINE 0-5 /HPF (0-5); SQUAMOUS EPITHELIAL CELL,UR MANY Squamous (<= Few)
--- NOTE | 2021-03-03 14:19 | CT Report ---
PROCEDURE: Abdomen/Pelvis W INDICATIONS: vomiting, epigastric pain; hemataemesis CONTRAST: IV CONTRAST: Optiray 320 ml: 100 PO CONTRAST: *NO PO CONTRAST TECHNIQUE: After the administration of IV contrast, 5 mm thick sections acquired from the diaphragms to the symp hysis. 5 mm thick coronal and sagittal reformats were acquired. For radiation dose reduction, the f ollowing was used: automated exposure control, adjustment of mA and/or kV according to patient size. COMPARISON: 02/25/2021 FINDINGS: Image quality: Excellent. ABDOMEN: Lung bases: Lung bases are clear. Heart size is normal. There is a small to moderate hiatal hernia . Solid organs: Liver and spleen are normal in size and enhancement. Diffuse fatty liver infiltration can be seen. Gallbladder wall does not appear thickened. Biliary system is non dilated. Pancre as enhances normally. No adrenal nodules. Kidneys demonstrate normal size and enhancement, without hydronephrosis. Peritoneum and bowel: There is mild generalized thickening seen of the distal stomach and the duoden al sweep. Bowel loops otherwise demonstrate normal wall thickness and caliber. No free fluid or air. A normal appendix is incidentally noted. Nodes and vessels: Mildly enlarged retroperitoneal lymph nodes are seen, with largest seen within the left periaortic region, as on series 3 image 27 measuring 1.4 x 1.1 cm. Aorta and inferior vena cav a are normal in size. Miscellaneous: No ventral hernias. PELVIS: Genitourinary: Bladder wall thickness is normal. The uterus demonstrates an unremarkable appearance for age. No adnexal masses are seen. Miscellaneous: No inguinal hernias or adenopathy. Bones: No suspicious bony lesions. No vertebral body compression fractures. IMPRESSION: Generalized wall thickening is seen involving the distal stomach and the duodenal sweep. If clinically appropriate, please consider upper endoscopy for further evaluation. A small to moderate hiatal hernia is seen. Mildly enlarged retroperitoneal lymph nodes are seen. Incidental note is made of: Fatty liver infiltration Reviewed by: Blanco Navarrete MD on 03/03/2021 1:17 PM AKDT Approved by: Blanco Navarrete MD on 03/03/2021 1:17 PM AKDT Station ID: [id number]
[2021-03-03 16:08] VITALS: BP 124/88
== END 2021-03-03 16:22 | disposition home or self-care (01) ==
LOC: ED 12:35
DX: K29.70 Gastritis, unspecified, without bleeding (principal); K29.80 Duodenitis without bleeding; K44.9 Diaphragmatic hernia without obstruction or gangrene
CPT/HCPCS: 36415; 74177; 80053; 81001; 83690; 85025; 96365; 96375; 99283; 99284; Q9967; 81003; 87086

== ENCOUNTER 2021-03-19 22:01 | Emergency (ER) | payer MEDICARE, MEDICAID ==
--- NOTE | 2021-03-20 00:04 | ED Physician Documentation ---
PD HPI HEENT - Stated complaint Stated Complaint: TOOTH PX - Chief complaint Chief Complaint: Heent - History obtained from History obtained from: Patient - History of Present Illness Timing - onset: Today Timing - details: Gradual onset Pain level now: 6 Location: Tooth Improves: Nothing Associated symptoms: No: Fever - Additional information Additional information: Patient states she had a filling placed February 28. She says the tooth had been broken and this is what led to the filling. She presents with dental pain associated with the same tooth, with the pain starting this afternoon without apparent inciting event. 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 - Present Medications Home Medications: Ambulatory Orders Medication Instructions Recorded Confirmed OLANZapine [ZyPREXA] 10 mg PO QPM 02/10/13 03/19/21 Divalproex [Odell Sales] 250 mg PO BID 10/05/19 03/19/21 Metformin HCl 500 mg PO DAILY 10/05/19 03/19/21 Famotidine [Pepcid] 20 mg PO DAILY #15 tablet 02/25/21 03/19/21 Omeprazole 40 mg PO BID #60 03/03/21 03/19/21 Ondansetron Odt [Zofran] 4 mg TL Q6H PRN #10 tablet 03/03/21 03/19/21 Sucralfate [Carafate] 1 gm PO Q6H #60 tablet 03/03/21 03/19/21 Amoxicillin 500 mg PO BID #10 03/20/21 HYDROcod/ACETAM 5/325 [[place] 5/325] 1 - 2 tablet PO Q6H PRN #6 tablet 03/20/21 - Allergies Allergies/Adverse Reactions: Allergies Allergy/AdvReac Type Severity Reaction Status Date / Time No Known Drug Allergies Allergy Verified 03/19/21 22:15 - Social History Does the pt smoke?: No Smoking Status: Never smoker Does the pt drink ETOH?: No Does the pt have substance abuse?: No - Immunizations Immunizations are current?: Yes - POLST Patient has POLST: No PD ED PE NORMAL - Vitals Vital signs reviewed: Yes - General General: Alert and oriented X 3, No acute distress, Well developed/nourished - HEENT HEENT: Moist mucous membranes PD ED PE EXPANDED - HEENT HEENT: Dental TTP HEENT Visual: 1 - tenderness (tender to percussion; filling in place. no erythema or fluctuance, no swelling) Results - Vitals Vitals: Oxygen O2 Source Room air PD MEDICAL DECISION MAKING - ED course Complexity details: considered differential, d/w patient Departure - Departure Disposition: 01 Home, Self Care Clinical Impression: Toothache Condition: Good Instructions: ED Tooth Pain Prescriptions: Amoxicillin 500 mg PO BID #10 HYDROcod/ACETAM 5/325 [[place] 5/325] 1 - 2 tablet PO Q6H PRN #6 tablet PRN Reason: Pain Discharge Date/Time: 03/20/21 00:22
[2021-03-20] MEDS ORDERED: AMOXICILLIN 250 MG CAPSULE PO STA (00:13)
[2021-03-20] MEDS ORDERED: HYDROcod/ACETAM 5/325 MG TABLET PO STA (00:13)
[2021-03-20 00:25] VITALS: BP 155/79
== END 2021-03-20 00:22 | disposition home or self-care (01) ==
LOC: ED 22:01
DX: K08.89 Other specified disorders of teeth and supporting structures (principal)
CPT/HCPCS: 99282; 99283; A9270

== ENCOUNTER 2021-07-26 15:22 | Emergency (ER) | payer MEDICARE, MEDICAID ==
[2021-07-26 15:53] LABS: BASOPHILS % (AUTO) 0.3 %; HGB - HEMOGLOBIN 11.7 g/dL (12.0-16.0); LYMPHOCYTES # (AUTO) 2.9 10^3/uL (1.5-3.5); LYMPHOCYTES % (AUTO) 39.9 %; MEAN CORPUSCULAR HEMOGLOBIN 24.2 pg (27.0-31.0); MEAN CORPUSCULAR VOLUME 80.7 fL (81.0-99.0); MEAN PLATELET VOLUME 9.7 fL (7.9-10.8); MONOCYTES # (AUTO) 0.6 10^3/uL (0.0-1.0); MONOCYTES % (AUTO) 8.6 %; NEUTROPHILS # (AUTO) 3.7 10^3/uL (1.5-6.6); NEUTROPHILS % (AUTO) 50.9 %; PLT - PLATELET COUNT 294 10^3/uL (130-450); RED BLOOD COUNT 4.83 10^6/uL (4.20-5.40); RED CELL DISTRIBUTION WIDTH 17.8 % (12.0-15.0); WHITE BLOOD COUNT 7.2 x10^3/uL (4.8-10.8)
[2021-07-26 16:05] LABS: ALBUMIN 4.1 g/dL (3.2-5.5); ALBUMIN/GLOBULIN RATIO 1.1 (1.0-2.2); BILIRUBIN,TOTAL 0.6 mg/dL (0.2-1.0); CALCIUM 9.5 mg/dL (8.5-10.3); CREATININE 0.5 mg/dL (0.4-1.0); POTASSIUM 3.8 mmol/L (3.5-5.0); TOTAL PROTEIN 7.7 g/dL (6.7-8.2)
[2021-07-26] MEDS ORDERED: SODIUM CHLORIDE 0.9% 1,000 ML IV STA (16:44)
[2021-07-26] MEDS ORDERED: ONDANSETRON 4 MG/2 ML VIAL IVP STA (16:44)
--- NOTE | 2021-07-26 16:46 | ED Physician Documentation ---
History of Present Illness - Stated complaint Stated Complaint: NAUSEA - Chief complaint Chief Complaint: Abd Pain - Additonal information Additional information: 46-year-old female presents emergency department for evaluation of 2 days nausea vomiting and diarrhea. She is reporting some epigastric discomfort as well. No fevers. Denies dysuria urgency or frequency. Denies any sick contacts or travel. No pertinent past surgical history. Takes olanzapine and Depakote for history of dysthymia. Review of Systems Constitutional: denies: Fever, Chills Eyes: reports: Reviewed and negative Nose: reports: Reviewed and negative Throat: reports: Reviewed and negative Cardiac: reports: Reviewed and negative Respiratory: reports: Reviewed and negative GI: reports: Abdominal Pain, Nausea, Vomiting, Diarrhea. 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: Breast reduction - Present Medications Home Medications: Ambulatory Orders Medication Instructions Recorded Confirmed OLANZapine [ZyPREXA] 10 mg PO QPM 02/10/13 07/26/[address] [Depakote Dr] 250 mg PO BID 10/05/19 07/26/21 Metformin HCl 500 mg PO DAILY 10/05/19 07/26/21 Famotidine [Pepcid] 20 mg PO DAILY #15 tablet 02/25/21 07/26/21 Ondansetron Odt [Zofran] 4 mg TL Q6H PRN #10 tablet 07/26/21 Pantoprazole [Protonix] 40 mg PO DAILY #30 tablet 07/26/21 - Allergies Allergies/Adverse Reactions: Allergies Allergy/AdvReac Type Severity Reaction Status Date / Time No Known Drug Allergies Allergy Verified 07/26/21 15:29 - Social History Does the pt smoke?: No Smoking Status: Never smoker Does the pt drink ETOH?: No Does the pt have substance abuse?: No - Immunizations Immunizations are current?: Yes - POLST Patient has POLST: No PD ED PE NORMAL - General General: Alert and oriented X 3, No acute distress - HEENT HEENT: PERRL - Neck Neck: Supple, no meningeal sign - Cardiac Cardiac: RRR, No murmur - Respiratory Respiratory: Clear bilaterally - Abdomen Abdomen: Normal bowel sounds, Soft, Non tender (No abdominal tenderness elicited. Negative McBurney's negative Chisholm's.), Non distended Results - Vitals Vitals: Vital Signs - 24 hr 07/26/21 07/26/21 07/26/21 15:29 16:16 18:00 Temperature 36.3 C L 36.7 C Heart Rate 102 H 92 79 Respiratory 18 18 16 Rate Blood Pressure 142/102 H 140/79 H 119/75 O2 Saturation 94 98 96 Oxygen O2 Source Room air - Labs Labs: Laboratory Tests 07/26/21 07/26/21 15:43 15:43 WBC 7.2 RBC 4.83 Hgb 11.7 L Hct 39.0 MCV 80.7 L MCH 24.2 L MCHC 30.0 L RDW 17.8 H Plt Count 294 MPV 9.7 Neut # (Auto) 3.7 Lymph # (Auto) 2.9 [place] # (Auto) 0.6 Eos # (Auto) 0.0 Baso # (Auto) 0.0 Absolute Nucleated RBC 0.00 Nucleated RBC % 0.0 Sodium 142 Potassium 3.8 Chloride 104 Carbon Dioxide 27 Anion Gap 11.0 BUN 12 Creatinine 0.5 Estimated GFR (MDRD) 132 Glucose 99 Calcium 9.5 Total Bilirubin 0.6 AST 25 ALT 26 Alkaline Phosphatase 73 Total Protein 7.7 Albumin 4.1 Globulin 3.6 Albumin/Globulin Ratio 1.1 Lipase 38 PD MEDICAL DECISION MAKING - ED course Complexity details: reviewed results, re-evaluated patient, considered differential, d/w patient ED course: 46-year-old female presents emergency department for evaluation of 2 days nausea vomiting and mild diarrhea. All output nonbloody. She has no pertinent past surgical history. On presentation she appears very well. I was unable to elicit any abdominal tenderness including the right upper quadrant right lower quadrant. Screening labs are unremarkable. No leukocytosis. No findings of acute kidney injury or LFT abnormalities. Patient was given IV fluids and Zofran here in the ER with good resolution of the nausea now tolerating p.o. I did review past ED visits as well as previous CT scans. Most recent CT scan completed in February 2021 did show some generalized stomach wall thickening c oncerning for an inflammatory process. I deferred any further CT imaging today given the rather benign exam and lack of lab abnormalities. I discussed the CT finding in February with the patient. Valarie wagner will be started on Protonix and will follow up with her PCP. She may benefit from an EGD for evaluation of peptic ulcer disease or gastritis. Emergent worrisome return precautions were discussed. Departure - Departure Disposition: 01 Home, Self Care Clinical Impression: Epigastric abdominal pain Vomiting Qualifiers: Vomiting type: unspecified Vomiting Intractability: non-intractable Nausea presence: with nausea Qualified Code(s): R11.2 - Nausea with vomiting, unspecified Condition: Stable Record reviewed to determine appropriate education?: Yes Instructions: ED Gastritis Prescriptions: Pantoprazole [Protonix] 40 mg PO DAILY #30 tablet Ondansetron Odt [Zofran] 4 mg TL Q6H PRN #10 tablet PRN Reason: Nausea / Vomiting Comments: Toy you are seen today in the ER for upper abdominal pain vomiting and diarrhea. I suspect that you may have a mild virus causing your symptoms. I have prescribed some Zofran to help with the nausea. Over the next 24 hours I recommend clear liquid diet and then slowly advance to bananas, rice, applesa uce and toast. However as we discussed at the bedside recent CT imaging in February suggested generalized stomach inflammation. This can be a condition called gastritis. I would like you to begin taking the Protonix daily. Discussed this ED visit with your primary care provider. You would benefit from referral for an outpatient EGD or endoscopy to evaluate for stomach inflammation and ulcer formation. If you develop black or bloody stools, have bloody vomit, fevers, suddenly severe abdominal pain or uncontrolled nausea and vomiting then please return to the ER for second evaluation.
[2021-07-26] MEDS ORDERED: LIDOCAINE VISCOUS 2% 15 ML UDC MM STA (17:38)
[2021-07-26] MEDS ORDERED: PANTOPRAZOLE 40 MG VIAL IVP STA (17:38)
[2021-07-26 18:04] VITALS: BP 119/75
== END 2021-07-26 18:42 | disposition home or self-care (01) ==
LOC: ED 15:22
DX: R10.13 Epigastric pain (principal); R11.2 Nausea with vomiting, unspecified; R19.7 Diarrhea, unspecified
CPT/HCPCS: 36415; 80053; 81001; 81003; 83690; 85025; 87086; 96374; 96375; 99283

== ENCOUNTER 2021-08-16 23:58 | Emergency (ER) | payer MEDICARE, MEDICAID ==
[2021-08-17] MEDS ORDERED: ONDANSETRON 4 MG/2 ML VIAL IVP STA (00:12)
[2021-08-17] MEDS ORDERED: SODIUM CHLORIDE 0.9% 1,000 ML IV STA (00:12)
[2021-08-17] MEDS ORDERED: KETOROLAC 30 MG/ML VIAL IVP STA (00:20)
[2021-08-17 00:22] LABS: BASOPHILS % (AUTO) 0.3 %; HCT - HEMATOCRIT 38.8 % (37.0-47.0); HGB - HEMOGLOBIN 11.8 g/dL (12.0-16.0); LYMPHOCYTES # (AUTO) 3.3 10^3/uL (1.5-3.5); LYMPHOCYTES % (AUTO) 48.2 %; MEAN CORPUSCULAR HEMOGLOBIN 25.1 pg (27.0-31.0); MEAN CORPUSCULAR HGB CONC 30.4 g/dL (32.0-36.0); MEAN CORPUSCULAR VOLUME 82.6 fL (81.0-99.0); MEAN PLATELET VOLUME 9.5 fL (7.9-10.8); MONOCYTES # (AUTO) 0.6 10^3/uL (0.0-1.0); MONOCYTES % (AUTO) 8.5 %; NEUTROPHILS # (AUTO) 2.9 10^3/uL (1.5-6.6); NEUTROPHILS % (AUTO) 42.9 %; PLT - PLATELET COUNT 286 10^3/uL (130-450); RED CELL DISTRIBUTION WIDTH 17.2 % (12.0-15.0); WHITE BLOOD COUNT 6.8 x10^3/uL (4.8-10.8)
[2021-08-17 00:36] LABS: ALBUMIN/GLOBULIN RATIO 1.1 (1.0-2.2); BILIRUBIN,TOTAL 0.4 mg/dL (0.2-1.0); CALCIUM 9.2 mg/dL (8.5-10.3); CREATININE 0.8 mg/dL (0.4-1.0); POTASSIUM 3.5 mmol/L (3.5-5.0); TOTAL PROTEIN 7.6 g/dL (6.7-8.2)
[2021-08-17] MEDS ORDERED: LOPERAMIDE 2 MG CAPSULE PO STA (02:34)
[2021-08-17] MEDS ORDERED: HYDROcod/ACET 5/325 Prepack 4 PO STA (02:34)
[2021-08-17 03:01] VITALS: BP 119/85
--- NOTE | 2021-08-18 19:09 | ED Physician Documentation ---
PD HPI NVD - Stated complaint Stated Complaint: NAUSEA, LIGHT HEADED, DIRRHEA - Chief complaint Chief Complaint: Abd Pain - History obtained from History obtained from: Patient - History of Present Illness Timing - duration: Days (few days (per patient)) Timing - details: Gradual onset Pain level now: 3 Associated symptoms: Abdominal pain. No: Fever, Hematemesis, Melena, Hematochezia Similar symptoms before: Has not had sx before Recently seen: Emergency Dept (3 weeks ago for nausea) - Additonal information Additional information: c/o 3-4 days of nausea without vomiting, as well as diarrhea and generalized abdominal cramping. similar presentation 3 weeks ago to this ED Review of Systems Constitutional: reports: Reviewed and negative GI: reports: Abdominal Pain, Nausea, Diarrhea. 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 - Present Medications Home Medications: Ambulatory Orders Medication Instructions Recorded Confirmed OLANZapine [ZyPREXA] 10 mg PO QPM 02/10/13 07/26/21 Divalproex [Odell Sales] 250 mg PO BID 10/05/19 07/26/21 Metformin HCl 500 mg PO DAILY 10/05/19 07/26/21 Famotidine [Pepcid] 20 mg PO DAILY #15 tablet 02/25/21 07/26/21 Ondansetron Odt [Zofran] 4 mg TL Q6H PRN #10 tablet 07/26/21 Pantoprazole [Protonix] 40 mg PO DAILY #30 tablet 07/26/21 Ondansetron Odt [Zofran Odt] 4 mg TL Q6H PRN #10 tablet 08/17/21 - Allergies Allergies/Adverse Reactions: Allergies Allergy/AdvReac Type Severity Reaction Status Date / Time No Known Drug Allergies Allergy Verified 08/17/21 00:02 - Social History Does the pt smoke?: No Smoking Status: Never smoker Does the pt drink ETOH?: No Does the pt have substance abuse?: No - Immunizations Immunizations are current?: Yes - POLST Patient has POLST: No PD ED PE NORMAL - Vitals Vital signs reviewed: Yes - General General: Alert and oriented X 3, No acute distress, Well developed/nourished - HEENT HEENT: Moist mucous membranes - Cardiac Cardiac: RRR, No murmur - Respiratory Respiratory: No respiratory distress, Clear bilaterally - Abdomen Abdomen: Normal bowel sounds, Soft, Non tender, Non distended - Back Back: No CVA TTP Results - Vitals Vitals: Oxygen O2 Source Room air - Labs Labs: Laboratory Tests 08/17/21 08/17/21 00:17 00:17 WBC 6.8 RBC 4.70 Hgb 11.8 L Hct 38.8 MCV 82.6 MCH 25.1 L MCHC 30.4 L RDW 17.2 H Plt Count 286 MPV 9.5 Neut # (Auto) 2.9 Lymph # (Auto) 3.3 [place] # (Auto) 0.6 Eos # (Auto) 0.0 Baso # (Auto) 0.0 Absolute Nucleated RBC 0.00 Nucleated RBC % 0.0 Sodium 141 Potassium 3.5 Chloride 103 Carbon Dioxide 27 Anion Gap 11.0 BUN 11 Creatinine 0.8 Estimated GFR (MDRD) 77 L Glucose 106 H Calcium 9.2 Total Bilirubin 0.4 AST 26 ALT 26 Alkaline Phosphatase 72 Total Protein 7.6 Albumin 4.0 Globulin 3.6 Albumin/Globulin Ratio 1.1 Lipase 34 PD MEDICAL DECISION MAKING - ED course Complexity details: reviewed old records, reviewed results, re-evaluated patient, considered differential, d/w patient ED course: nontender abdominal exam and unremarkable blood tests (CBC, ER abdominal panel). she is in NAD. Given IV NS, zofran, and toradol. On reevaluation , she is in NAD and continues to have nontender abdominal exam but c/o inadequate pain relief. Results reviewed with patient, no further emergent testing indicated at this time. Given take-home pack of vicodin, return precautions, instructed to f/u with PMD next available appointmemt. Offered, but declined, imodium. Departure - Departure Disposition: Home, Self Care Clinical Impression: Abdominal pain Qualifiers: Abdominal location: generalized Qualified Code(s): R10.84 - Generalized abdominal pain Condition: Good Instructions: ED Abdominal Pain Female Non-Specific Abdominal Pain Prescriptions: Ondansetron Odt [Zofran Odt] 4 mg TL Q6H PRN #10 tablet PRN Reason: Nausea / Vomiting Comments: A prescription for ondansetron (anti-nausea medication) has been submitted electronically to [facility] pharmacy in [place]. Discharge Date/Time: 08/17/21 03:01
== END 2021-08-17 03:01 | disposition home or self-care (01) ==
LOC: ED 23:58
DX: R10.84 Generalized abdominal pain (principal)
CPT/HCPCS: 36415; 80053; 83690; 85025; 96374; 99283; A9270

== ENCOUNTER 2021-09-13 19:21 | Emergency (ER) | payer MEDICARE, MEDICAID ==
[2021-09-13] MEDS ORDERED: IBUPROFEN 800 MG TABLET PO STA (19:45)
[2021-09-13] MEDS ORDERED: AMOXICILLIN 250 MG CAPSULE PO STA (19:45)
--- NOTE | 2021-09-13 19:48 | ED Physician Documentation ---
PD HPI HEENT - Stated complaint Stated Complaint: RT TOOTH PX - Chief complaint Chief Complaint: Heent - History obtained from History obtained from: Patient - Additional information Additional information: Right maxillary tooth pain starting today. She had seen her dentist a month ago and there was not a problem noted in that area. No fevers or facial swelling. 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 - Present Medications Home Medications: Ambulatory Orders Medication Instructions Recorded Confirmed OLANZapine [ZyPREXA] 10 mg PO QPM 02/10/13 07/26/[address] [Depakote Dr] 250 mg PO BID 10/05/19 07/26/21 Metformin HCl 500 mg PO DAILY 10/05/19 07/26/21 Famotidine [Pepcid] 20 mg PO DAILY #15 tablet 02/25/21 07/26/21 Ondansetron Odt [Zofran] 4 mg TL Q6H PRN #10 tablet 07/26/21 Pantoprazole [Protonix] 40 mg PO DAILY #30 tablet 07/26/21 Ondansetron Odt [Zofran Odt] 4 mg TL Q6H PRN #10 tablet 08/17/21 Amoxicillin 500 mg PO TID #30 cap 09/13/21 Ibuprofen [Motrin] 800 mg PO Q8H PRN #30 tablet 09/13/21 - Allergies Allergies/Adverse Reactions: Allergies Allergy/AdvReac Type Severity Reaction Status Date / Time No Known Drug Allergies Allergy Verified 09/13/21 19:27 - Social History Does the pt smoke?: No Smoking Status: Never smoker Does the pt drink ETOH?: No Does the pt have substance abuse?: No - Immunizations Immunizations are current?: Yes - POLST Patient has POLST: No PD ED PE NORMAL - Vitals Vital signs reviewed: Yes - General General: Alert and oriented X 3, No acute distress - HEENT HEENT: Other (Tender premolar on the right but without obvious cavity. No trismus, facial swelling or gingival swelling.) - Neck Neck: Supple, no meningeal sign, No bony TTP - Neuro Neuro: Alert and oriented X 3, Normal speech Results - Vitals Vitals: Vital Signs - 24 hr 09/13/21 19:24 Temperature 36.2 C L Heart Rate 91 Respiratory 18 Rate Blood Pressure 148/92 H O2 Saturation 98 Oxygen O2 Source Room air Departure - Departure Disposition: Home, Self Care Clinical Impression: Pain, dental Condition: Good Record reviewed to determine appropriate education?: Yes Instructions: ED Tooth Pain Prescriptions: Amoxicillin 500 mg PO TID #30 cap Ibuprofen [Motrin] 800 mg PO Q8H PRN #30 tablet PRN Reason: PAIN &/OR FEVER Comments: It is very important that you follow-up with a dentist. When it comes to dental problems like yours, the emergency department can only offer a short-term solution to your long-term problem. A couple of low cost options for dental care include: [facility] in [place], calls [phone] for an appointment Or [facility] in [place], call [phone] for an appointment.
[2021-09-13 20:02] VITALS: BP 138/88
== END 2021-09-13 20:01 | disposition home or self-care (01) ==
LOC: ED 19:21
DX: K08.89 Other specified disorders of teeth and supporting structures (principal)
CPT/HCPCS: 99282; 99283; A9270

== ENCOUNTER 2021-10-26 08:15 | Outpatient (CLI) | payer MEDICARE, MEDICAID ==
[2021-10-26 11:58] LABS: BASOPHILS % (AUTO) 0.3 %; HCT - HEMATOCRIT 40.6 % (37.0-47.0); HGB - HEMOGLOBIN 12.7 g/dL (12.0-16.0); LYMPHOCYTES # (AUTO) 2.7 10^3/uL (1.5-3.5); LYMPHOCYTES % (AUTO) 44.3 %; MEAN CORPUSCULAR HEMOGLOBIN 25.6 pg (27.0-31.0); MEAN CORPUSCULAR HGB CONC 31.3 g/dL (32.0-36.0); MEAN CORPUSCULAR VOLUME 81.9 fL (81.0-99.0); MEAN PLATELET VOLUME 10.1 fL (7.9-10.8); MONOCYTES # (AUTO) 0.4 10^3/uL (0.0-1.0); MONOCYTES % (AUTO) 7.1 %; NEUTROPHILS % (AUTO) 48.1 %; PLT - PLATELET COUNT 288 10^3/uL (130-450); RED BLOOD COUNT 4.96 10^6/uL (4.20-5.40); RED CELL DISTRIBUTION WIDTH 13.8 % (12.0-15.0); WHITE BLOOD COUNT 6.2 x10^3/uL (4.8-10.8)
[2021-10-26 12:30] LABS: ESTIMATED AVERAGE GLUCOSE 120 mg/dL (70-100); HEMOGLOBIN A1c% 5.8 % (4.27-6.07)
[2021-10-26 12:34] LABS: THYROID STIMULATING HORMONE 3.45 uIU/mL (0.34-5.60)
[2021-10-26 12:36] LABS: ALBUMIN 4.1 g/dL (3.2-5.5); ALBUMIN/GLOBULIN RATIO 1.1 (1.0-2.2); ALKALINE PHOSPHATASE 75 IU/L (42-121); ALT ALANINE AMINOTRANSFERASE 21 IU/L (10-60); AST ASPARTATE AMINOTRANSFERASE 24 IU/L (10-42); BILIRUBIN,TOTAL 0.6 mg/dL (0.2-1.0); BUN - BLOOD UREA NITROGEN 10 mg/dL (6-20); CALCIUM 9.4 mg/dL (8.5-10.3); CARBON DIOXIDE - CO2 27 mmol/L (21-32); CHLORIDE 104 mmol/L (101-111); CHOL/HDL RATIO 2.7 (<4.4); CHOLESTEROL 177 mg/dL; CREATININE 0.7 mg/dL (0.4-1.0); GFR - MDRD 90 (>89); GLUCOSE 105 mg/dL (70-100); HDL CHOLESTEROL 65 mg/dL; LDL CHOLESTEROL,CALCULATED 81 mg/dL; LDL/HDL RATIO 1.2 (<4.4); POTASSIUM 3.6 mmol/L (3.5-5.0); SODIUM 141 mmol/L (135-145); TOTAL PROTEIN 7.7 g/dL (6.7-8.2); TRIGLYCERIDES 153 mg/dL; VLDL CHOLESTEROL 31 mg/dL
== END 2021-10-26 08:16 | disposition home or self-care (01) ==
LOC: LAB.N 08:15
PROVIDERS: ATTEND Internal Medicine
DX: Z00.00 Encounter for general adult medical examination without abnormal findings (principal); R73.9 Hyperglycemia, unspecified; Z79.899 Other long term (current) drug therapy
CPT/HCPCS: 36415; 80053; 80061; 83036; 83721; 84443; 85025

== ENCOUNTER 2022-01-18 09:57 | Outpatient (CLI) | payer MEDICARE, MEDICAID ==
[2022-01-18 13:35] LABS: PROLACTIN 2.75 ng/mL
[2022-01-18 13:58] LABS: FOLLICLE STIMULATING HORMONE 26.7 mIU/mL
[2022-01-18 13:59] LABS: LUTEINIZING HORMONE 17.04 mIU/mL
[2022-01-19 05:11] LABS: ESTRADIOL 19.4 pg/mL (.)
== END 2022-01-18 09:58 | disposition home or self-care (01) ==
LOC: LAB.N 09:57
PROVIDERS: ATTEND Internal Medicine
DX: E28.1 Androgen excess (principal)
CPT/HCPCS: 36415; 82533; 82627; 82670; 83001; 83002; 84143; 84146; 84305; 84403

== ENCOUNTER 2022-07-31 00:42 | Emergency (ER) | payer MEDICARE, MEDICAID ==
[2022-07-31 00:51] VITALS: BP 141/96
[2022-07-31 01:24] LABS: BASOPHILS % (AUTO) 0.4 %; HCT - HEMATOCRIT 41.6 % (37.0-47.0); HGB - HEMOGLOBIN 13.3 g/dL (12.0-16.0); LYMPHOCYTES # (AUTO) 3.8 10^3/uL (1.5-3.5); LYMPHOCYTES % (AUTO) 38.1 %; MEAN CORPUSCULAR HEMOGLOBIN 26.7 pg (27.0-31.0); MEAN CORPUSCULAR VOLUME 83.5 fL (81.0-99.0); MEAN PLATELET VOLUME 9.7 fL (7.9-10.8); MONOCYTES # (AUTO) 0.7 10^3/uL (0.0-1.0); MONOCYTES % (AUTO) 6.8 %; NEUTROPHILS # (AUTO) 5.4 10^3/uL (1.5-6.6); NEUTROPHILS % (AUTO) 54.5 %; PLT - PLATELET COUNT 235 10^3/uL (130-450); RED BLOOD COUNT 4.98 10^6/uL (4.20-5.40); RED CELL DISTRIBUTION WIDTH 14.4 % (12.0-15.0); WHITE BLOOD COUNT 9.9 x10^3/uL (4.8-10.8)
[2022-07-31 01:44] LABS: ALBUMIN 4.3 g/dL (3.2-5.5); ALBUMIN/GLOBULIN RATIO 1.2 (1.0-2.2); BILIRUBIN,TOTAL 0.7 mg/dL (0.2-1.0); CALCIUM 9.5 mg/dL (8.5-10.3); CREATININE 0.7 mg/dL (0.4-1.0); POTASSIUM 3.5 mmol/L (3.5-5.0)
[2022-07-31] MEDS ORDERED: MAG HYDROX/AL HYDROX/SIMETH 30 ML UDC PO STA (05:15)
[2022-07-31] MEDS ORDERED: diphenhydrAMINE ELIXIR 25 MG/10 ML UDC PO STA (05:16)
[2022-07-31] MEDS ORDERED: LIDOCAINE VISCOUS 2% 15 ML UDC MM STA (05:16)
--- NOTE | 2022-07-31 05:18 | ED Physician Documentation ---
History of Present Illness - Stated complaint Stated Complaint: N/V/D - Chief complaint Chief Complaint: Abd Pain - History obtained from History obtained from: Patient - Additonal information Additional information: 47yF with multiple prior ED visits for vomiting and diarrhea presents with the same today. reports nbnb n/v and nonbloody diarrhea X 2 days. denies fever, urinary sx. also with diffuse gradual onset constant aching abdominal pain. 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 - Present Medications Home Medications: Ambulatory Orders Medication Instructions Recorded Confirmed OLANZapine [ZyPREXA] 10 mg PO QPM 02/10/13 05/20/22 Divalproex [Odell Sales] 250 mg PO BID 10/05/19 05/20/22 Metformin HCl 500 mg PO DAILY 10/05/19 05/20/22 Famotidine [Pepcid] 20 mg PO DAILY #15 tablet 02/25/21 05/20/22 Pantoprazole [Protonix] 40 mg PO DAILY #30 tablet 07/26/21 05/20/22 Ondansetron Odt [Zofran Odt] 4 mg TL Q6H PRN #10 tablet 08/17/21 05/20/22 Amoxicillin 500 mg PO TID #30 cap 09/13/21 05/20/22 Ibuprofen [Motrin] 800 mg PO Q8H PRN #30 tablet 09/13/21 05/20/22 Ondansetron Odt [Zofran] 4 mg TL Q6H PRN #10 tablet 05/21/22 - Allergies Allergies/Adverse Reactions: Allergies Allergy/AdvReac Type Severity Reaction Status Date / Time No Known Drug Allergies Allergy Verified 07/31/22 00:51 - Social History Does the pt smoke?: No Smoking Status: Never smoker Does the pt drink ETOH?: No Does the pt have substance abuse?: No - Immunizations Immunizations are current?: Yes - POLST Patient has POLST: No PD ED PE NORMAL - Vitals Vital signs reviewed: Yes - General General: Alert and oriented X 3, No acute distress, Well developed/nourished - HEENT HEENT: Atraumatic, PERRL, EOMI - Neck Neck: Supple, no meningeal sign - Cardiac Cardiac: RRR - Respiratory Respiratory: No respiratory distress, Clear bilaterally - Abdomen Abdomen: Non tender, Non distended - Back Back: No CVA TTP - Derm Derm: Normal color, Warm and dry - Extremities Extremities: No deformity - Neuro Neuro: No motor deficit, No sensory deficit - Psych Psych: Normal mood, Normal affect Results - Vitals Vitals: Vital Signs - 24 hr 07/31/22 07/31/22 00:48 04:19 Temperature 36.1 C L Heart Rate 91 Respiratory 18 17 Rate Blood Pressure 141/96 H O2 Saturation 97 Oxygen O2 Source Room air - Labs Labs: Laboratory Tests 07/31/22 07/31/22 00:17 00:17 WBC 9.9 RBC 4.98 Hgb 13.3 Hct 41.6 MCV 83.5 MCH 26.7 L MCHC 32.0 RDW 14.4 Plt Count 235 MPV 9.7 Neut # (Auto) 5.4 Lymph # (Auto) 3.8 [place] # (Auto) 0.7 Eos # (Auto) 0.0 Baso # (Auto) 0.0 Absolute Nucleated RBC 0.00 Nucleated RBC % 0.0 Sodium 140 Potassium 3.5 Chloride 102 Carbon Dioxide 26 Anion Gap 12.0 BUN 12 Creatinine 0.7 Estimated GFR (MDRD) 89 Glucose 115 H Calcium 9.5 Total Bilirubin 0.7 AST 27 ALT 34 Alkaline Phosphatase 83 Total Protein 8.0 Albumin 4.3 Globulin 3.7 Albumin/Globulin Ratio 1.2 Lipase 31 PD MEDICAL DECISION MAKING - ED course ED course: 47yF p/w nv/d and abdominal pain. labwork, exam unremarkable. patient states she has to pick her daughter up and requesting magic mouthwash. symptomatic care provided and return precautions given. plan to f/u with pcp. Departure - Departure Disposition: 01 Home, Self Care Clinical Impression: Nausea and vomiting, Diarrhea, Abdominal pain Condition: Good Instructions: ED Vomiting Diarrhea Nonspecific Ad Comments: YOu were seen in the ed for nausea, vomiting and diarrhea. Your labwork uncovered no emergent findings. Please follow up with your primary care provider and return to the ED if you have new or worsening symptoms or other concerns.
== END 2022-07-31 05:38 | disposition home or self-care (01) ==
LOC: ED 00:42
DX: R11.2 Nausea with vomiting, unspecified (principal); R19.7 Diarrhea, unspecified; R10.9 Unspecified abdominal pain
CPT/HCPCS: 36415; 80053; 83690; 85025; 99282; 99283; A9270

== ENCOUNTER 2022-10-28 16:02 | Emergency (ER) | payer MEDICARE, MEDICAID ==
[2022-10-28] MEDS ORDERED: ONDANSETRON 4 MG/2 ML VIAL IVP STA (16:21)
[2022-10-28] MEDS ORDERED: KETOROLAC 15 MG/ML VIAL IVP STA (16:21)
--- NOTE | 2022-10-28 16:21 | ED Physician Documentation ---
PD HPI ABD PAIN - Stated complaint Stated Complaint: VOMITING - Chief complaint Chief Complaint: Abd Pain - History obtained from History obtained from: Patient - Additional information Additional information: 47-year-old woman with history of schizophrenia and recurrent abdominal pain and vomiting of unclear etiology presents with 2 days of nausea and vomiting as well as diarrhea. She has central and upper abdominal pain with it. She denies fevers or chills. States that Zofran is usually quite helpful for this. No history of abdominal surgeries. 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 - Present Medications Home Medications: Ambulatory Orders Medication Instructions Recorded Confirmed OLANZapine [ZyPREXA] 10 mg PO QPM 02/10/13 05/20/22 Divalproex [Odell Sales] 250 mg PO BID 10/05/19 05/20/22 Metformin HCl 500 mg PO DAILY 10/05/19 05/20/22 Famotidine [Pepcid] 20 mg PO DAILY #15 tablet 02/25/21 05/20/22 Pantoprazole [Protonix] 40 mg PO DAILY #30 tablet 07/26/21 05/20/22 Ondansetron Odt [Zofran Odt] 4 mg TL Q6H PRN #10 tablet 08/17/21 05/20/22 Amoxicillin 500 mg PO TID #30 cap 09/13/21 05/20/22 Ibuprofen [Motrin] 800 mg PO Q8H PRN #30 tablet 09/13/21 05/20/22 Ondansetron Odt [Zofran] 4 mg TL Q6H PRN #10 tablet 05/21/22 - Allergies Allergies/Adverse Reactions: Allergies Allergy/AdvReac Type Severity Reaction Status Date / Time No Known Drug Allergies Allergy Verified 10/28/22 16:12 - Social History Does the pt smoke?: No Smoking Status: Never smoker Does the pt drink ETOH?: No Does the pt have substance abuse?: No - Immunizations Immunizations are current?: Yes - POLST Patient has POLST: No PD ED PE NORMAL - Vitals Vital signs reviewed: Yes - General General: Alert and oriented X 3, No acute distress - Cardiac Cardiac: RRR, No murmur - Respiratory Respiratory: No respiratory distress, Clear bilaterally - Abdomen Abdomen: Non tender, Other (normal bowel sounds and no surgical signs.) - Neuro Neuro: Alert and oriented X 3, Normal speech - Psych Psych: Other (Blunted affect) Results - Vitals Vitals: Vital Signs - 24 hr 10/28/22 10/28/22 10/28/22 16:08 16:29 18:22 Temperature 36.6 C Heart Rate 92 79 66 Respiratory 20 18 18 Rate Blood Pressure 136/85 H 134/92 H O2 Saturation 98 97 100 10/28/22 18:30 Temperature Heart Rate Respiratory Rate Blood Pressure 120/81 H O2 Saturation Oxygen O2 Source Room air - Labs Labs: Laboratory Tests 10/28/22 10/28/22 16:33 16:33 WBC 6.9 RBC 4.92 Hgb 13.5 Hct 42.2 MCV 85.8 MCH 27.4 MCHC 32.0 RDW 13.8 Plt Count 271 MPV 9.5 Neut # (Auto) 3.9 Lymph # (Auto) 2.6 [place] # (Auto) 0.4 Eos # (Auto) 0.0 Baso # (Auto) 0.0 Absolute Nucleated RBC 0.00 Nucleated RBC % 0.0 Sodium 142 Potassium 4.0 Chloride 102 Carbon Dioxide 26 Anion Gap 14.0 H BUN 9 Creatinine 0.7 Estimated GFR (MDRD) 89 Glucose 96 Calcium 10.1 Total Bilirubin 0.7 AST 32 ALT 36 Alkaline Phosphatase 78 Total Protein 7.6 Albumin 4.2 Globulin 3.4 Albumin/Globulin Ratio 1.2 Lipase 33 PD Medical Decision Making - ED course Complexity details: reviewed results (CBC normal, CMP normal) ED course: 47-year-old woman with an exacerbation of recurrent vomiting abdominal pain with benign exam and normal labs. She had minimal relief with initial medication with Zofran and Toradol but had excellent relief subsequently with IV fluids, Reglan, and a GI cocktail. On reexamination prior to discharge her exam remained without tenderness. Departure - Departure Disposition: 01 Home, Self Care Clinical Impression: Vomiting, Abdominal pain Condition: Good Record reviewed to determine appropriate education?: Yes Instructions: ED Abdominal Pain Female Non-Specific Abdominal Pain, ED Nausea Vomiting Comments: Return tomorrow if not better, anytime for new or worsening symptoms. Follow-up with your primary care physician, next available appointment. Discharge Date/Time: 10/28/22 18:32
--- OUTSIDE RECORDS SUMMARY | 2022-10-28 16:25 | EXTERNAL MEDICAL SUMMARY RPT | Continuity of Care Document ---
:1975 Author Organization [facility] Address [address] [place] [address] Phone Care Team Providers Name Role Phone Unavailable Unavailable Unavailable Jonel Rios Unavailable Unavailable Allergies and Intolerances date description facility type (no date) No Known Drug Allergies [facility] (unkn own) Encounters No information. Functional Status No information. Immunizations No information. Medications No information. Problems date description facility 2022-08-23 11:14 Encounter for preprocedural [facility] examination 2022-08-23 11:14 Contact with and (suspected) exposure [place] [id number] 2022-08-24 04:06 Encounter for preprocedural [facility] examination 2022-08-24 04:06 Contact with and (suspected) exposure [place] [id number] 2022-10-04 11:02 Contact with and (suspected) exposure [place] [id number] 2022-10-05 03:30 Contact with and (suspected) exposure [place] [id number] 2022-10-07 11:33 [facility] 2022-10-07 12:15 [facility] 2022-10-07 13:17 [facility] esophagitis without [facility] 2022-10-07 13:22 [facility] esophagitis without [facility] 2022-10-07 13:38 [facility] es[facility]itis without [facility] Procedures date description facility 2022-10-07 00:00 [facility] Results/Labs test date author facility value unit interpret ation Result panel 1 (unknown) (no date) (unknown[facility] Result panel 2 (unknown) (no date) (unknown[facility] Result panel 3 (unknown) (no date) (unknown[facility] Result panel 4 (unknown) (no (unknown) (unknown) (no value) (units (unk nown) date) unknown) (unknown) (no (unknown) (unknown) (1) Encounter (units ( unknown) date) for preoperative unknown) screening laboratory testing for COVID-19 virus: (unknown) (no (unknown) (unknown) COVID-19 (units (u nknown) date) unknown) (unknown) (no (unknown) (unknown) [id number] (units (unkn own) date) unknown) (unknown) (no (unknown) (unknown) 08/23/22 (units (unkno wn) date) unknown) (unknown) (no (unknown) (unknown) Age/Sex: 47 / F (units (unknown) date) Date of Service: unknown) (unknown) (no (unknown) (unknown) Allergies (units (unkn own) date) unknown) (unknown) (no (unknown) (unknown) MAR[facility] LUISA Salomon (units ( unknown) date) [id number] unknown) (unknown) (no (unknown) (unknown) Attending Dr: (units ( unknown) date) Trevor Shah MD unknown) (unknown) (no (unknown) (unknown) Code(s): (units (unkno wn) date) unknown) (unknown) (no (unknown) (unknown) : 1975 (units (unknown) date) Acct:[id number] unknown) (unknown) (no (unknown) (unknown) Dept at (units (unkno wn) date) . unknown) (unknown) (no (unknown) (unknown) Documented By: (units (unknown) date) Trevor Shah MD unknown) 08/23/22 1112 (unknown) (no (unknown) (unknown) Draft (units (unkno wn) date) unknown) (unknown) (no (unknown) (unknown) Evaluation/Scree (units (unknown) date) ceferino for possible unknown) COVID-19 completed?: Yes- COVID-19 CPT (unknown) (no (unknown) (unknown) Intake Note: (units (u nknown) date) unknown) (unknown) (no (unknown) (unknown) Intake performed (units (unknown) date) by: Ashtyn Trinh unknown) (unknown) (no (unknown) (unknown) Intake (units (unkno wn) date) unknown) (unknown) (no (unknown) (unknown) Intake- [facility]incial (units (unknown) date) Staff unknown) (unknown) (no (unknown) (unknown) [facility] (units (unknown) date) unknown) (unknown) (no (unknown) (unknown) Loc: [facility] (units (unkno wn) date) unknown) (unknown) (no (unknown) (unknown) No Known Drug (units ( unknown) date) Allergies Allergy unknown) (Verified 06/19/22 12:39) (unknown) (no (unknown) (unknown) Note (units (unkno wn) date) unknown) (unknown) (no (unknown) (unknown) Nurse Office (units (u nknown) date) Visit unknown) (unknown) (no (unknown) (unknown) Patient: (units (unkno wn) date) Shira Shankar unknown) MR#: M (unknown) (no (unknown) (unknown) Pt came in for a (units (unknown) date) pre procedure unknown) covid test. Denied any covid symptoms. Explained (unknown) (no (unknown) (unknown) Reason For Visit (units (unknown) date) unknown) (unknown) (no (unknown) (unknown) Signed By: (units (unk nown) date) unknown) (unknown) (no (unknown) (unknown) Smoking Status: (units (unknown) date) Never smoker unknown) (unknown) (no (unknown) (unknown) This note may (units ( unknown) date) have been all or unknown) partially generated using voice recognition (unknown) (no (unknown) (unknown) Tobacco Status (units (unknown) date) unknown) (unknown) (no (unknown) (unknown) Visit Diagnosis (units (unknown) date) unknown) (unknown) (no (unknown) (unknown) Visit Reasons: (units (unknown) date) [facility] unknown) (unknown) (no (unknown) (unknown) Z01.812 - (units (unkn own) date) Encounter for unknown) preprocedural laboratory examination; Z20.822 - Contact (unknown) (no (unknown) (unknown) covid test to (units ( unknown) date) pt. [facility] unknown) well. (unknown) (no (unknown) (unknown) have occurred. (units (unknown) date) If there are any unknown) questions, please contact the Medical Records (unknown) (no (unknown) (unknown) may occur. (units (unk nown) date) Occasional unknown) wrong-word or 'sound-alike' substitutions may have (unknown) (no (unknown) (unknown) occurred due to (units (unknown) date) the inherent unknown) limitations of voice recognition software. Please (unknown) (no (unknown) (unknown) read the note (units ( unknown) date) carefully and unknown) recognize, using context, where these substitutions (unknown) (no (unknown) (unknown) software. (units (unkn own) date) Although every unknown) effort is made to edit content, buffing and sueding machine operator errors (unknown) (no (unknown) (unknown) with and (units (unkno wn) date) (suspected) unknown) exposure to covid-19 Result panel 5 (unknown) (no (unknown) (unknown) (no value) (units (unk nown) date) unknown) (unknown) (no (unknown) (unknown) (1) Encounter (units ( unknown) date) for preoperative unknown) screening laboratory testing for COVID-19 virus: (unknown) (no (unknown) (unknown) COVID-19 (units (u nknown) date) unknown) (unknown) (no (unknown) (unknown) [phone] (units (unkn own) date) unknown) (unknown) (no (unknown) (unknown) 08/23/22 1126 (units ( unknown) date) unknown) (unknown) (no (unknown) (unknown) 08/23/22 (units (unkno wn) date) unknown) (unknown) (no (unknown) (unknown) Age/Sex: 47 / F (units (unknown) date) Date of Service: unknown) (unknown) (no (unknown) (unknown) Allergies (units (unkn own) date) unknown) (unknown) (no (unknown) (unknown) MARIA LUISA Salomon (units ( unknown) date) [id number] unknown) (unknown) (no (unknown) (unknown) Attending Dr: (units ( unknown) date) Trevor Shah MD unknown) (unknown) (no (unknown) (unknown) Code(s): (units (unkno wn) date) unknown) (unknown) (no (unknown) (unknown) : 1975 (units (unknown) date) Acct:[id number] unknown) (unknown) (no (unknown) (unknown) Dept at (units (unkno wn) date) . unknown) (unknown) (no (unknown) (unknown) Documented By: (units (unknown) date) Trevor Shah MD unknown) 08/23/22 1112 (unknown) (no (unknown) (unknown) Evaluation/Scree (units (unknown) date) ceferino for possible unknown) COVID-19 completed?: Yes- COVID-19 CPT (unknown) (no (unknown) (unknown) Intake Note: (units (u nknown) date) unknown) (unknown) (no (unknown) (unknown) Intake performed (units (unknown) date) by: Ashtyn Trinh unknown) (unknown) (no (unknown) (unknown) Intake (units (unkno wn) date) unknown) (unknown) (no (unknown) (unknown) Intake- Clincial (units (unknown) date) Staff unknown) (unknown) (no (unknown) (unknown) [facility] (units (unknown) date) unknown) (unknown) (no (unknown) (unknown) Loc: [facility] (units (unkno wn) date) unknown) (unknown) (no (unknown) (unknown) No Known Drug (units ( unknown) date) Allergies Allergy unknown) (Verified 06/19/22 12:39) (unknown) (no (unknown) (unknown) Note (units (unkno wn) date) unknown) (unknown) (no (unknown) (unknown) Nurse Office (units (u nknown) date) Visit unknown) (unknown) (no (unknown) (unknown) Patient: (units (unkno wn) date) Shira Shankar unknown) MR#: M (unknown) (no (unknown) (unknown) Pt came in for a (units (unknown) date) pre procedure unknown) covid test. Denied any covid symptoms. Explained (unknown) (no (unknown) (unknown) Reason For Visit (units (unknown) date) unknown) (unknown) (no (unknown) (unknown) Signed By: (units (unk nown) date) <Electronically unknown) signed by Trevor Shah MD> (unknown) (no (unknown) (unknown) Signed (units (unkno wn) date) unknown) (unknown) (no (unknown) (unknown) Smoking Status: (units (unknown) date) Never smoker unknown) (unknown) (no (unknown) (unknown) This note may (units ( unknown) date) have been all or unknown) partially generated using voice recognition (unknown) (no (unknown) (unknown) Tobacco Status (units (unknown) date) unknown) (unknown) (no (unknown) (unknown) Visit Diagnosis (units (unknown) date) unknown) (unknown) (no (unknown) (unknown) Visit Reasons: (units (unknown) date) [facility] unknown) (unknown) (no (unknown) (unknown) Z01.812 - (units (unkn own) date) Encounter for unknown) preprocedural laboratory examination; Z20.822 - Contact (unknown) (no (unknown) (unknown) covid test to (units ( unknown) date) pt. [facility] unknown) well. (unknown) (no (unknown) (unknown) have occurred. (units (unknown) date) If there are any unknown) questions, please contact the Medical Records (unknown) (no (unknown) (unknown) may occur. (units (unk nown) date) Occasional unknown) wrong-word or 'sound-alike' substitutions may have (unknown) (no (unknown) (unknown) occurred due to (units (unknown) date) the inherent unknown) limitations of voice recognition software. Please (unknown) (no (unknown) (unknown) read the note (units ( unknown) date) carefully and unknown) recognize, using context, where these substitutions (unknown) (no (unknown) (unknown) software. (units (unkn own) date) Although every unknown) effort is made to edit content, buffing and sueding machine operator errors (unknown) (no (unknown) (unknown) with and (units (unkno wn) date) (suspected) unknown) exposure to covid-19 Result panel 6 (unknown) (no date) (unknown) (unknown) POSITIVE (units (unkn own) unknown) (unknown) (no date) (unknown) (unknown) POSITIVE (units (unkn own) unknown) Result panel 7 (unknown) (no (unknown) (unknown) (no value) (units (unk nown) date) unknown) (unknown) (no (unknown) (unknown) (1) Encounter (units ( unknown) date) for preoperative unknown) screening laboratory testing for COVID-19 virus: (unknown) (no (unknown) (unknown) COVID-19 (units (u nknown) date) unknown) (unknown) (no (unknown) (unknown) [phone] (units (unkn own) date) unknown) (unknown) (no (unknown) (unknown) 10/04/22 (units (unkno wn) date) unknown) (unknown) (no (unknown) (unknown) Age/Sex: 47 / F (units (unknown) date) Date of Service: unknown) (unknown) (no (unknown) (unknown) Allergies (units (unkn own) date) unknown) (unknown) (no (unknown) (unknown) [place] (units ( unknown) date) [id number] unknown) (unknown) (no (unknown) (unknown) Attending Dr: (units ( unknown) date) Digna Thibodeaux unknown) (unknown) (no (unknown) (unknown) Code(s): (units (unkno wn) date) unknown) (unknown) (no (unknown) (unknown) : 1975 (units (unknown) date) Acct:[id number] unknown) (unknown) (no (unknown) (unknown) Dept at (units (unkno wn) date) . unknown) (unknown) (no (unknown) (unknown) Documented By: (units (unknown) date) Digna Thibodeaux unknown) 10/04/22 1058 (unknown) (no (unknown) (unknown) Draft (units (unkno wn) date) unknown) (unknown) (no (unknown) (unknown) Evaluation/Scree (units (unknown) date) ceferino for possible unknown) COVID-19 completed?: Yes- COVID-19 CPT (unknown) (no (unknown) (unknown) Intake Note: (units (u nknown) date) unknown) (unknown) (no (unknown) (unknown) Intake performed (units (unknown) date) by: Ashtyn Trinh unknown) (unknown) (no (unknown) (unknown) Intake (units (unkno wn) date) unknown) (unknown) (no (unknown) (unknown) Intake- Clincial (units (unknown) date) Staff unknown) (unknown) (no (unknown) (unknown) [facility] (units (unknown) date) unknown) (unknown) (no (unknown) (unknown) Loc: [facility] (units (unkno wn) date) unknown) (unknown) (no (unknown) (unknown) No Known Drug (units ( unknown) date) Allergies Allergy unknown) (Verified 06/19/22 12:39) (unknown) (no (unknown) (unknown) Note (units (unkno wn) date) unknown) (unknown) (no (unknown) (unknown) Nurse Office (units (u nknown) date) Visit unknown) (unknown) (no (unknown) (unknown) Patient: (units (unkno wn) date) Shira Shankar unknown) MR#: M (unknown) (no (unknown) (unknown) Pt came in for a (units (unknown) date) pre procedure unknown) covid test. Denied any covid symptoms. Explained (unknown) (no (unknown) (unknown) Reason For Visit (units (unknown) date) unknown) (unknown) (no (unknown) (unknown) Signed By: (units (unk nown) date) unknown) (unknown) (no (unknown) (unknown) Smoking Status: (units (unknown) date) Never smoker unknown) (unknown) (no (unknown) (unknown) This note may (units ( unknown) date) have been all or unknown) partially generated using voice recognition (unknown) (no (unknown) (unknown) Tobacco Status (units (unknown) date) unknown) (unknown) (no (unknown) (unknown) Visit Diagnosis (units (unknown) date) unknown) (unknown) (no (unknown) (unknown) Visit Reasons: (units (unknown) date) [facility] unknown) (unknown) (no (unknown) (unknown) Z01.812 - (units (unkn own) date) Encounter for unknown) preprocedural laboratory examination; Z20.822 - Contact (unknown) (no (unknown) (unknown) covid test to (units ( unknown) date) pt. [facility] unknown) well. (unknown) (no (unknown) (unknown) have occurred. (units (unknown) date) If there are any unknown) questions, please contact the Medical Records (unknown) (no (unknown) (unknown) may occur. (units (unk nown) date) Occasional unknown) wrong-word or 'sound-alike' substitutions may have (unknown) (no (unknown) (unknown) occurred due to (units (unknown) date) the inherent unknown) limitations of voice recognition software. Please (unknown) (no (unknown) (unknown) read the note (units ( unknown) date) carefully and unknown) recognize, using context, where these substitutions (unknown) (no (unknown) (unknown) software. (units (unkn own) date) Although every unknown) effort is made to edit content, buffing and sueding machine operator errors (unknown) (no (unknown) (unknown) with and (units (unkno wn) date) (suspected) unknown) exposure to covid-19 Result panel 8 (unknown) (no (unknown) (unknown) (no value) (units (unk nown) date) unknown) (unknown) (no (unknown) (unknown) (1) Encounter (units ( unknown) date) for preoperative unknown) screening laboratory testing for COVID-19 virus: (unknown) (no (unknown) (unknown) COVID-19 (units (u nknown) date) unknown) (unknown) (no (unknown) (unknown) [id number] (units (unkn own) date) unknown) (unknown) (no (unknown) (unknown) 10/04/22 1158 (units ( unknown) date) unknown) (unknown) (no (unknown) (unknown) 10/04/22 (units (unkno wn) date) unknown) (unknown) (no (unknown) (unknown) Age/Sex: 47 / F (units (unknown) date) Date of Service: unknown) (unknown) (no (unknown) (unknown) Allergies (units (unkn own) date) unknown) (unknown) (no (unknown) (unknown) Spurgeon, MARIA LUISA (units ( unknown) date) [id number] unknown) (unknown) (no (unknown) (unknown) Attending Dr: (units ( unknown) date) Digna Thibodeaux unknown) (unknown) (no (unknown) (unknown) Code(s): (units (unkno wn) date) unknown) (unknown) (no (unknown) (unknown) : 1975 (units (unknown) date) Acct:[id number] unknown) (unknown) (no (unknown) (unknown) Dept at (units (unkno wn) date) . unknown) (unknown) (no (unknown) (unknown) Documented By: (units (unknown) date) Digna Thibodeaux unknown) 10/04/22 1058 (unknown) (no (unknown) (unknown) Evaluation/Scree (units (unknown) date) ceferino for possible unknown) COVID-19 completed?: Yes- COVID-19 CPT (unknown) (no (unknown) (unknown) Intake Note: (units (u nknown) date) unknown) (unknown) (no (unknown) (unknown) Intake performed (units (unknown) date) by: Ashtyn Trinh unknown) (unknown) (no (unknown) (unknown) Intake (units (unkno wn) date) unknown) (unknown) (no (unknown) (unknown) Intake- Clincial (units (unknown) date) Staff unknown) (unknown) (no (unknown) (unknown) [facility] (units (unknown) date) unknown) (unknown) (no (unknown) (unknown) Loc: [facility] (units (unkno wn) date) unknown) (unknown) (no (unknown) (unknown) No Known Drug (units ( unknown) date) Allergies Allergy unknown) (Verified 06/19/22 12:39) (unknown) (no (unknown) (unknown) Note (units (unkno wn) date) unknown) (unknown) (no (unknown) (unknown) Nurse Office (units (u nknown) date) Visit unknown) (unknown) (no (unknown) (unknown) Patient: (units (unkno wn) date) Shira Shankar unknown) MR#: M (unknown) (no (unknown) (unknown) Pt came in for a (units (unknown) date) pre procedure unknown) covid test. Denied any covid symptoms. Explained (unknown) (no (unknown) (unknown) Reason For Visit (units (unknown) date) unknown) (unknown) (no (unknown) (unknown) Signed By: (units (unk nown) date) <Electronically unknown) signed by Digna Thibodeaux> (unknown) (no (unknown) (unknown) Signed (units (unkno wn) date) unknown) (unknown) (no (unknown) (unknown) Smoking Status: (units (unknown) date) Never smoker unknown) (unknown) (no (unknown) (unknown) This note may (units ( unknown) date) have been all or unknown) partially generated using voice recognition (unknown) (no (unknown) (unknown) Tobacco Status (units (unknown) date) unknown) (unknown) (no (unknown) (unknown) Visit Diagnosis (units (unknown) date) unknown) (unknown) (no (unknown) (unknown) Visit Reasons: (units (unknown) date) [facility] unknown) (unknown) (no (unknown) (unknown) Z01.812 - (units (unkn own) date) Encounter for unknown) preprocedural laboratory examination; Z20.822 - Contact (unknown) (no (unknown) (unknown) covid test to (units ( unknown) date) pt. [facility] unknown) well. (unknown) (no (unknown) (unknown) have occurred. (units (unknown) date) If there are any unknown) questions, please contact the Medical Records (unknown) (no (unknown) (unknown) may occur. (units (unk nown) date) Occasional unknown) wrong-word or 'sound-alike' substitutions may have (unknown) (no (unknown) (unknown) occurred due to (units (unknown) date) the inherent unknown) limitations of voice recognition software. Please (unknown) (no (unknown) (unknown) read the note (units ( unknown) date) carefully and unknown) recognize, using context, where these substitutions (unknown) (no (unknown) (unknown) software. (units (unkn own) date) Although every unknown) effort is made to edit content, buffing and sueding machine operator errors (unknown) (no (unknown) (unknown) with and (units (unkno wn) date) (suspected) unknown) exposure to covid-19 Result panel 9 (unknown) (no date) (unknown) (unknown) Negative (units (unkn own) unknown) (unknown) (no date) (unknown) (unknown) Negative (units (unkn own) unknown) Result panel 10 (unknown) (no date) (unknown) (unknown) (no value) (units 191 39-5 unknown) (unknown) (no date) (unknown) (unknown) (no value) (units 226 33-2 unknown) (unknown) (no date) (unknown) (unknown) (no value) (units 226 34-0 unknown) (unknown) (no date) (unknown) (unknown) (no value) (units 226 37-3 unknown) (unknown) (no date) (unknown) (unknown) (no value) (units 495 60-6 unknown) (unknown) (no date) (unknown) (unknown) (no value) (units 527 97-8 unknown) (unknown) (no date) (unknown) (unknown) (no value) (units (un known) unknown) (unknown) (no date) (unknown) (unknown) (no value) (units (un known) unknown) (unknown) (no date) (unknown) (unknown) (no value) (units (un known) unknown) (unknown) (no date) (unknown) (unknown) (no value) (units (un known) unknown) (unknown) (no date) (unknown) (unknown) (no value) (units (un known) unknown) (unknown) (no date) (unknown) (unknown) (no value) (units (un known) unknown) Result panel 11 (unknown) (no (unknown) (unknown) (no value) (units (unk nown) date) unknown) (unknown) (no (unknown) (unknown) [phone] (units (unkn own) date) unknown) (unknown) (no (unknown) (unknown) 10/07/22 1222 (units ( unknown) date) unknown) (unknown) (no (unknown) (unknown) 47-year-old (units (un known) date) female with a unknown) history of severe esophagitis. She remains on PPI and (unknown) (no (unknown) (unknown) Age/Sex: 47 / F (units (unknown) date) unknown) (unknown) (no (unknown) (unknown) Allergies (units (unkn own) date) unknown) (unknown) (no (unknown) (unknown) Allergy/AdvReac (units (unknown) date) Type Severity unknown) Reaction Status Date / Time (unknown) (no (unknown) (unknown) Appearance: (units (un known) date) grossly normal unknown) (unknown) (no (unknown) (unknown) Assessment + (units (u nknown) date) Plan narrative: unknown) (unknown) (no (unknown) (unknown) Assessment + (units (u nknown) date) Plan unknown) (unknown) (no (unknown) (unknown) Cardio (units (unkno wn) date) unknown) (unknown) (no (unknown) (unknown) Chest (units (unkno wn) date) unknown) (unknown) (no (unknown) (unknown) Chest: normal (units ( unknown) date) inspection of the unknown) chest (unknown) (no (unknown) (unknown) Chief complaint: (units (unknown) date) SDC unknown) (unknown) (no (unknown) (unknown) Const (units (unkno wn) date) unknown) (unknown) (no (unknown) (unknown) Critical Care (units ( unknown) date) time: unknown) (unknown) (no (unknown) (unknown) : 1975 (units (unknown) date) Acct:[id number] unknown) (unknown) (no (unknown) (unknown) Date Patient (units (u nknown) date) Seen: 10/07/22 unknown) (unknown) (no (unknown) (unknown) Date of Service: (units (unknown) date) 10/07/22 unknown) (unknown) (no (unknown) (unknown) Depression (units (unk nown) date) unknown) (unknown) (no (unknown) (unknown) Effort + (units (unkno wn) date) Inspection: unknown) normal respiratory effort (unknown) (no (unknown) (unknown) Exam (units (unkno wn) date) unknown) (unknown) (no (unknown) (unknown) Extrem (units (unkno wn) date) unknown) (unknown) (no (unknown) (unknown) Eyes (units (unkno wn) date) unknown) (unknown) (no (unknown) (unknown) Family + Social (units (unknown) date) History unknown) (unknown) (no (unknown) (unknown) GI (units (unkno wn) date) unknown) (unknown) (no (unknown) (unknown) General: (units (unkno wn) date) appearance unknown) normal, both eyes and all related structures (unknown) (no (unknown) (unknown) General: (units (unkno wn) date) cooperative unknown) (unknown) (no (unknown) (unknown) General: no (units (un known) date) rashes or lesions unknown) noted (unknown) (no (unknown) (unknown) General: normal (units (unknown) date) to inspection and unknown) no pedal edema (unknown) (no (unknown) (unknown) General: patient (units (unknown) date) alert and patient unknown) awake (unknown) (no (unknown) (unknown) HENMT (units (unkno wn) date) unknown) (unknown) (no (unknown) (unknown) Head: normal to (units (unknown) date) inspection unknown) (unknown) (no (unknown) (unknown) History + (units (unkn own) date) Physical Report unknown) (unknown) (no (unknown) (unknown) History of (units (unk nown) date) Present Illness unknown) (unknown) (no (unknown) (unknown) Home Medications (units (unknown) date) and Allergies unknown) (unknown) (no (unknown) (unknown) Home Medications (units (unknown) date) unknown) (unknown) (no (unknown) (unknown) I spent a total (units (unknown) date) of [] minutes of unknown) critical care time on this patient's care (unknown) (no (unknown) (unknown) Improved on PPI (units (unknown) date) but still having unknown) some breakthrough symptoms. Taking omeprazole (unknown) (no (unknown) (unknown) Inspection: (units (un known) date) normal to unknown) inspection (unknown) (no (unknown) (unknown) [facility] (units (unknown) date) [address] unknown) [place] [address] (unknown) (no (unknown) (unknown) Medical History (units (unknown) date) (Reviewed unknown) 10/07/22 @ 12:21 by Richard French MD) (unknown) (no (unknown) (unknown) Medication (units (unk nown) date) Instructions unknown) Recorded Confirmed Type (unknown) (no (unknown) (unknown) Meds (units (unkno wn) date) unknown) (unknown) (no (unknown) (unknown) Narrative: (units (unk nown) date) unknown) (unknown) (no (unknown) (unknown) Neck (units (unkno wn) date) unknown) (unknown) (no (unknown) (unknown) Neck: normal (units (u nknown) date) visual inspection unknown) (unknown) (no (unknown) (unknown) Neuro (units (unkno wn) date) unknown) (unknown) (no (unknown) (unknown) No Known Drug (units ( unknown) date) Allergies Allergy unknown) Verified 10/07/22 12:13 (unknown) (no (unknown) (unknown) Patient History (units (unknown) date) unknown) (unknown) (no (unknown) (unknown) Patient: (units (unkno wn) date) Anthony Shankaria Jordan unknown) MR#: M (unknown) (no (unknown) (unknown) Provider: (units (unkn own) date) Richard French MD unknown) (unknown) (no (unknown) (unknown) Psych (units (unkno wn) date) unknown) (unknown) (no (unknown) (unknown) ROS: Yes All (units (u nknown) date) systems reviewed unknown) with the patient and are negative except as (unknown) (no (unknown) (unknown) Rate: regular (units ( unknown) date) rate unknown) (unknown) (no (unknown) (unknown) Resp (units (unkno wn) date) unknown) (unknown) (no (unknown) (unknown) Review of (units (unkn own) date) Systems unknown) (unknown) (no (unknown) (unknown) Schizophrenia (units ( unknown) date) unknown) (unknown) (no (unknown) (unknown) Signed (units (unkno wn) date) By:<Electronicall unknown) y signed by Richard French MD> (unknown) (no (unknown) (unknown) Skin (units (unkno wn) date) unknown) (unknown) (no (unknown) (unknown) Smoking Status (units (unknown) date) Never smoker unknown) (unknown) (no (unknown) (unknown) Substance Use (units ( unknown) date) Type does not use unknown) (unknown) (no (unknown) (unknown) Time Patient (units (u nknown) date) Seen: 12:21 unknown) (unknown) (no (unknown) (unknown) Time Spent With (units (unknown) date) Patient unknown) (unknown) (no (unknown) (unknown) Tobacco + (units (unkn own) date) Substance use: unknown) (unknown) (no (unknown) (unknown) alcohol intake (units (unknown) date) current unknown) (unknown) (no (unknown) (unknown) gabapentin 300 (units (unknown) date) mg capsule 300 mg unknown) PO DAILY 06/19/22 10/07/22 History (unknown) (no (unknown) (unknown) is here for (units (un known) date) follow-up EGD unknown) today. (unknown) (no (unknown) (unknown) lamotrigine 100 (units (unknown) date) mg tablet 100 mg unknown) PO DAILY 06/19/22 10/07/22 History (unknown) (no (unknown) (unknown) metformin 500 mg (units (unknown) date) tablet 750 mg PO unknown) DAILY 06/19/22 10/07/22 History (unknown) (no (unknown) (unknown) olanzapine 10 mg (units (unknown) date) tablet (Zyprexa) unknown) 10 mg PO QDAY ##0 06/05/17 10/07/22 History (unknown) (no (unknown) (unknown) omeprazole 20 mg (units (unknown) date) PO 10/07/22 unknown) History (unknown) (no (unknown) (unknown) once daily. (units (un known) date) unknown) (unknown) (no (unknown) (unknown) otherwise (units (unkn own) date) documented unknown) (unknown) (no (unknown) (unknown) today; this time (units (unknown) date) is exclusive of unknown) procedural time. Result panel 12 (unknown) (no date) (unknown) (unknown) (no value) (units (un known) unknown) (unknown) (no date) (unknown) (unknown) [id number] (units (unk nown) unknown) (unknown) (no date) (unknown) (unknown) 10/07/22 1223 (units (unknown) unknown) (unknown) (no date) (unknown) (unknown) ASA Class (for (units (unknown) procedural unknown) sedation): III (unknown) (no date) (unknown) (unknown) Age/Sex: 47 / (units (unknown) F unknown) (unknown) (no date) (unknown) (unknown) COVID-19 (units (unkn own) status: unknown) Negative (unknown) (no date) (unknown) (unknown) COVID-19 (units (unkn own) unknown) (unknown) (no date) (unknown) (unknown) Changes to (units (un known) H+P: No unknown) (unknown) (no date) (unknown) (unknown) Criteria for (units ( unknown) continued unknown) procedure: Possibility delay results in more complex (unknown) (no date) (unknown) (unknown) : (units (unkn own) 1975 unknown) Acct:[id number] (unknown) (no date) (unknown) (unknown) Date of (units (unkn own) Service: unknown) 10/07/22 (unknown) (no date) (unknown) (unknown) History + (units (unk nown) Physical unknown) reviewed/Exam performed by Physician: Yes (unknown) (no date) (unknown) (unknown) Interval Note (units (unknown) unknown) (unknown) (no date) (unknown) (unknown) [facility] (units (unkn own) [facility] [address] unknown) [address] [place] [address] (unknown) (no date) (unknown) (unknown) Patient: (units (unkn own) Anthony Shankaria unknown) D MR#: M (unknown) (no date) (unknown) (unknown) Pre-operative (units (unknown) Note unknown) (unknown) (no date) (unknown) (unknown) Provider: (units (unk nown) Richard French unknown) (unknown) (no date) (unknown) (unknown) Result (units (unkn own) date/Date unknown) tested (Pos, Neg/Pending): 10/04/22 (unknown) (no date) (unknown) (unknown) Signed (units (unkn own) By:<Electronica unknown) lly signed by Richard French MD> (unknown) (no date) (unknown) (unknown) future surgery (units (unknown) or treatment unknown) Result panel 13 (unknown) (no (unknown) (unknown) (no value) (units (unk nown) date) unknown) (unknown) (no (unknown) (unknown) (units (unknown) date) unknown) (unknown) (no (unknown) (unknown) Performed at: (units (unknown) date) 01 unknown) (unknown) (no (unknown) (unknown) . 01 (units (unkno wn) date) unknown) (unknown) (no (unknown) (unknown) /CPE 10/08/2022 (units (unknown) date) 0543 Local unknown) (unknown) (no (unknown) (unknown) 0.2 x 0.1 x 0.1 cm (units (unknown) date) submitted entirely unknown) in 1 cassette(s) (unknown) (no (unknown) (unknown) [address] [place] [address] (units (unknown) date) unknown) (unknown) (no (unknown) (unknown) [address] [facility] (units (unknown) date) [facility] [address], [place], unknown) [place] [phone] (unknown) (no (unknown) (unknown) [id number] (units (unkno wn) date) unknown) (unknown) (no (unknown) (unknown) [place] (units ( unknown) date) [address] unknown) (unknown) (no (unknown) (unknown) CPT . (units (unkno wn) date) unknown) (unknown) (no (unknown) (unknown) Collection Date: (units (unknown) date) 10/07/22 unknown) (unknown) (no (unknown) (unknown) DD/ (units (unknown) date) 0000 unknown) (unknown) (no (unknown) (unknown) Date of : (units (unknown) date) 1975 Admit unknown) Date: 10/07/22 (unknown) (no (unknown) (unknown) Diagnosis: (units (unk nown) date) unknown) (unknown) (no (unknown) (unknown) Dictated By: (units (u nknown) date) Chacha Heath unknown) (unknown) (no (unknown) (unknown) Electronically (units (unknown) date) signed: . unknown) (unknown) (no (unknown) (unknown) GEJ: (units (unkno wn) date) unknown) (unknown) (no (unknown) (unknown) Gastroesophageal (units (unknown) date) Junction, Biopsy: unknown) (unknown) (no (unknown) (unknown) Gross description: (units (unknown) date) . unknown) (unknown) (no (unknown) (unknown) [facility] (units (unknown) date) unknown) (unknown) (no (unknown) (unknown) Chacha Canela (units (unk nown) date) MD Kumar, unknown) Pathologist (unknown) (no (unknown) (unknown) K20.80 (units (unkno wn) date) unknown) (unknown) (no (unknown) (unknown) [facility] Accession (units ( unknown) date) Number: [id number] unknown) (unknown) (no (unknown) (unknown) [facility] Cytology unknown) (unknown) (no (unknown) (unknown) MD Sukhjinder Peterson (units (unknown) date) Phone: unknown) [phone] (unknown) (no (unknown) (unknown) (units (unknown) date) Dictating Dr: unknown) Chacha Heath MD (unknown) (no (unknown) (unknown) MRV 10/09/2022 (units (unknown) date) 1037 Local unknown) (unknown) (no (unknown) (unknown) Material (units (unkno wn) date) submitted: . unknown) (unknown) (no (unknown) (unknown) NPI- [id number] (units (unknown) date) unknown) (unknown) (no (unknown) (unknown) Negative for (units (u nknown) date) dysplasia and unknown) malignancy. (unknown) (no (unknown) (unknown) Negative for (units (u nknown) date) intestinal unknown) metaplasia. (unknown) (no (unknown) (unknown) No. of (units (unkno wn) date) containers..01 unknown) Tissue (unknown) (no (unknown) (unknown) Ordering (units (unkno wn) date) Physician: unknown) Richard French MD (unknown) (no (unknown) (unknown) Pathologist (units (un known) date) provided ICD-10: unknown) (unknown) (no (unknown) (unknown) Pathology (units (unkn own) date) Diagnostic Report unknown) (unknown) (no (unknown) (unknown) Patient name: (units ( unknown) date) Anthony Shankaria Jordan unknown) (unknown) (no (unknown) (unknown) Received in (units (un known) date) formalin is 1 unknown) fragment(s) of santana, soft tissue measuring (unknown) (no (unknown) (unknown) Signed By: (units (unk nown) date) 10/09/22 1535 unknown) (unknown) (no (unknown) (unknown) Signed (units (unkno wn) date) unknown) (unknown) (no (unknown) (unknown) Specimen Comment: (units (unknown) date) A courtesy copy of unknown) this report has been sent to [phone] (unknown) (no (unknown) (unknown) Squamocolumnar (units (unknown) date) junctional mucosa unknown) with chronic active inflammation. (unknown) (no (unknown) (unknown) TD/TT: 10/09/22 (units (unknown) date) 1535 unknown) (unknown) (no (unknown) (unknown) esophagus, E-G (units (unknown) date) Junction - GEJ unknown) Result panel 14 (unknown) (no date) (unknown) (unknown) (no value) (units (un known) unknown) (unknown) (no date) (unknown) (unknown) [id number] (units (unk nown) unknown) (unknown) (no date) (unknown) (unknown) Age/Sex: 47 / (units (unknown) F unknown) (unknown) (no date) (unknown) (unknown) : (units (unkn own) 1975 unknown) Acct:[id number] (unknown) (no date) (unknown) (unknown) Date of (units (unkn own) Service: unknown) 10/07/22 (unknown) (no date) (unknown) (unknown) Date of (units (unkn own) procedure: unknown) 10/07/22 (unknown) (no date) (unknown) (unknown) EGD Note (units (unkn own) unknown) (unknown) (no date) (unknown) (unknown) [facility] ([facility] [address] unknown) [address] [place] [address] (unknown) (no date) (unknown) (unknown) Operative (units (unk nown) Date/Time/Diagn unknown) oses (unknown) (no date) (unknown) (unknown) Patient: (units (unkn own) Shira Shankar unknown) D MR#: M (unknown) (no date) (unknown) (unknown) Post-op (units (unkn own) diagnosis: same unknown) (unknown) (no date) (unknown) (unknown) Pre-op (units (unkn own) diagnosis: unknown) Severe Esophagitis (unknown) (no date) (unknown) (unknown) Provider: (units (unk nown) Richard French unknown) (unknown) (no date) (unknown) (unknown) Signed By: (units (un known) unknown) (unknown) (no date) (unknown) (unknown) Time of (units (unkn own) procedure: unknown) 13:08 Result panel 15 (unknown) (no (unknown) (unknown) (no value) (units (unk nown) date) unknown) (unknown) (no (unknown) (unknown) [id number] (units (unkn own) date) unknown) (unknown) (no (unknown) (unknown) 10/07/22 1312 (units ( unknown) date) unknown) (unknown) (no (unknown) (unknown) 1. Await (units (unkno wn) date) histopathology. unknown) 2. Increase omeprazole up to twice daily. 3. Follow (unknown) (no (unknown) (unknown) 1. Duodenum: (units (u nknown) date) This was normal unknown) from the bulb through to the 2nd portion. (unknown) (no (unknown) (unknown) 1. Small sliding (units (unknown) date) hiatal hernia unknown) (unknown) (no (unknown) (unknown) 2. 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 Stomach: No (units (unknown) date) ulcers no mass unknown) lesions no outlet obstruction. There were again (unknown) (no (unknown) (unknown) 3. (units (unkno wn) date) Benign-appearing unknown) gastric polyps (unknown) (no (unknown) (unknown) 3. Esophagus: (units ( unknown) date) The unknown) squamocolumnar junction generally correlated with the top of (unknown) (no (unknown) (unknown) After the risks (units (unknown) date) and benefits were unknown) explained, written and verbal informed consent (unknown) (no (unknown) (unknown) Age/Sex: 47 / F (units (unknown) date) unknown) (unknown) (no (unknown) (unknown) Complications: (units (unknown) date) none unknown) (unknown) (no (unknown) (unknown) : 1975 (units (unknown) date) Acct:[id number] unknown) (unknown) (no (unknown) (unknown) Date of Service: (units (unknown) date) 10/07/22 unknown) (unknown) (no (unknown) (unknown) Date of (units (unkno wn) date) procedure: unknown) 10/07/22 (unknown) (no (unknown) (unknown) Disposition: (units (u nknown) date) PACU unknown) (unknown) (no (unknown) (unknown) EGD Note (units (unkno wn) date) unknown) (unknown) (no (unknown) (unknown) EGD with biopsy (units (unknown) date) unknown) (unknown) (no (unknown) (unknown) Endoscopic (units (unk nown) date) diagnosis unknown) (unknown) (no (unknown) (unknown) Impression: (units (un known) date) unknown) (unknown) (no (unknown) (unknown) Indications: (units (u nknown) date) unknown) (unknown) (no (unknown) (unknown) [facility] (units (unknown) date) [address] unknown) [place] [address] (unknown) (no (unknown) (unknown) Operative (units (unkn own) date) Date/Time/Diagnos unknown) es (unknown) (no (unknown) (unknown) Patient: (units (unkno wn) date) Shira Shankar unknown) MR#: M (unknown) (no (unknown) (unknown) Plan for (units (unkno wn) date) aftercare: unknown) (unknown) (no (unknown) (unknown) Post-op (units (unkno wn) date) diagnosis: same unknown) (unknown) (no (unknown) (unknown) Post-procedure (units (unknown) date) unknown) (unknown) (no (unknown) (unknown) Pre-op (units (unkno wn) date) diagnosis: Severe unknown) Esophagitis (unknown) (no (unknown) (unknown) Procedure + (units (un known) date) Clinicians unknown) (unknown) (no (unknown) (unknown) Procedure Notes (units (unknown) date) unknown) (unknown) (no (unknown) (unknown) Procedure in (units (u nknown) date) detail: unknown) (unknown) (no (unknown) (unknown) Provider: (units (unkn own) date) Richard French MD unknown) (unknown) (no (unknown) (unknown) SCOAP/Timeout: (units (unknown) date) Done unknown) (unknown) (no (unknown) (unknown) Same procedure (units (unknown) date) as scheduled: Yes unknown) (unknown) (no (unknown) (unknown) Severe (units (unkno wn) date) esophagitis unknown) (unknown) (no (unknown) (unknown) Signed (units (unkno wn) date) By:<Electronicall unknown) y signed by Richard French MD> (unknown) (no (unknown) (unknown) Study performed: (units (unknown) date) unknown) (unknown) (no (unknown) (unknown) Surgeon: Richard (units (unknown) date) Manolo unknown) (unknown) (no (unknown) (unknown) Time of (units (unkno wn) date) procedure: 13:08 unknown) (unknown) (no (unknown) (unknown) a few scattered (units (unknown) date) small diminutive unknown) benign-appearing polyps. We left these alone (unknown) (no (unknown) (unknown) advanced under (units (unknown) date) direct unknown) visualization to the 2nd portion of the duodenum. The (unknown) (no (unknown) (unknown) decompressed, (units ( unknown) date) the scope was unknown) then removed from the patient who tolerated the (unknown) (no (unknown) (unknown) details. The (units (u nknown) date) scope was unknown) introduced into the mouth through the bite block and (unknown) (no (unknown) (unknown) extending up to (units (unknown) date) 33 cm from the unknown) incisors. The GE junction was at 36 cm from the (unknown) (no (unknown) (unknown) incisors. Subtle (units (unknown) date) sliding hiatal unknown) hernia was noted. (unknown) (no (unknown) (unknown) into the tubular (units (unknown) date) esophagus of the unknown) salmon-colored probably still mildly inflamed (unknown) (no (unknown) (unknown) lesions. (units (unkno wn) date) Retroflexed views unknown) were accomplished in the stomach. The stomach was (unknown) (no (unknown) (unknown) metaplasia. The (units (unknown) date) patient still had unknown) evidence of LA grade C erosive esophagitis (unknown) (no (unknown) (unknown) mucosa. This was (units (unknown) date) targeted for a unknown) biopsy to exclude specialized intestinal (unknown) (no (unknown) (unknown) procedure well. (units (unknown) date) unknown) (unknown) (no (unknown) (unknown) scope was slowly (units (unknown) date) withdrawn unknown) carefully examining the mucosa for any defects or (unknown) (no (unknown) (unknown) the gastric (units (un known) date) folds. In the unknown) 8:00 a.m. location there was a slight extension up (unknown) (no (unknown) (unknown) the left lateral (units (unknown) date) decubitus unknown) position. Please see anesthesia note for sedation (unknown) (no (unknown) (unknown) today. (units (unkno wn) date) Retroflexed views unknown) of the LES were unremarkable. (unknown) (no (unknown) (unknown) up GI clinic 6-8 (units (unknown) date) weeks to review unknown) response. (unknown) (no (unknown) (unknown) was obtained. (units ( unknown) date) The patient was unknown) brought into the procedure room and placed into Social History date description facility 2022-08-23 00:00 Never smoked tobacco (finding) [facility] 2022-10-07 00:00 Never smoked tobacco (finding) [facility] Vital Signs date measurement value units 2022-10-07 00:00 BMI 42.0 kg/m2 2022-10-07 00:00 BP_diastolic 97 mmHg 2022-10-07 00:00 BP_systolic 134 mmHg 2022-10-07 00:00 heart_rate 73 /min 2022-10-07 00:00 height_metric 162.56 cm 2022-10-07 00:00 height_standard 64 in 2022-10-07 00:00 o2_saturation 95 % 2022-10-07 00:00 respiration_rate 16 /min 2022-10-07 00:00 temperature_metric 36.22 C 2022-10-07 00:00 temperature_standard 97.2 F 2022-10-07 00:00 weight_metric 111.13 kg 2022-10-07 00:00 weight_standard 245 lb
[2022-10-28 16:39] LABS: BASOPHILS % (AUTO) 0.6 %; HCT - HEMATOCRIT 42.2 % (37.0-47.0); HGB - HEMOGLOBIN 13.5 g/dL (12.0-16.0); LYMPHOCYTES # (AUTO) 2.6 10^3/uL (1.5-3.5); LYMPHOCYTES % (AUTO) 37.9 %; MEAN CORPUSCULAR HEMOGLOBIN 27.4 pg (27.0-31.0); MEAN CORPUSCULAR VOLUME 85.8 fL (81.0-99.0); MEAN PLATELET VOLUME 9.5 fL (7.9-10.8); MONOCYTES # (AUTO) 0.4 10^3/uL (0.0-1.0); MONOCYTES % (AUTO) 5.5 %; NEUTROPHILS # (AUTO) 3.9 10^3/uL (1.5-6.6); NEUTROPHILS % (AUTO) 55.6 %; PLT - PLATELET COUNT 271 10^3/uL (130-450); RED BLOOD COUNT 4.92 10^6/uL (4.20-5.40); RED CELL DISTRIBUTION WIDTH 13.8 % (12.0-15.0); WHITE BLOOD COUNT 6.9 x10^3/uL (4.8-10.8)
[2022-10-28 16:52] LABS: ALBUMIN 4.2 g/dL (3.2-5.5); ALBUMIN/GLOBULIN RATIO 1.2 (1.0-2.2); BILIRUBIN,TOTAL 0.7 mg/dL (0.2-1.0); CALCIUM 10.1 mg/dL (8.5-10.3); CREATININE 0.7 mg/dL (0.4-1.0); TOTAL PROTEIN 7.6 g/dL (6.7-8.2)
[2022-10-28] MEDS ORDERED: MAG HYDROX/AL HYDROX/SIMETH 30 ML UDC PO STA (17:13)
[2022-10-28] MEDS ORDERED: LIDOCAINE VISCOUS 2% 15 ML ORAL SYRINGE MM STA (17:13)
[2022-10-28] MEDS ORDERED: METOCLOPRAMIDE 10 MG/2 ML VIAL IVP STA (17:13)
[2022-10-28] MEDS ORDERED: SODIUM CHLORIDE 0.9% 1,000 ML IV STA (17:13)
[2022-10-28 18:32] VITALS: BP 120/81
== END 2022-10-28 18:32 | disposition home or self-care (01) ==
LOC: ED 16:02
DX: R11.2 Nausea with vomiting, unspecified (principal); R10.9 Unspecified abdominal pain; F20.9 Schizophrenia, unspecified
CPT/HCPCS: 36415; 80053; 83690; 85025; 96374; 96375; 99283; 99285; A9270; J2765

== ENCOUNTER 2022-10-31 10:58 | Outpatient (CLI) | payer MEDICARE, MEDICAID ==
[2022-10-31 17:34] LABS: BASOPHILS % (AUTO) 0.5 %; HCT - HEMATOCRIT 42.4 % (37.0-47.0); HGB - HEMOGLOBIN 13.1 g/dL (12.0-16.0); LYMPHOCYTES # (AUTO) 3.2 10^3/uL (1.5-3.5); LYMPHOCYTES % (AUTO) 43.8 %; MEAN CORPUSCULAR HEMOGLOBIN 27.4 pg (27.0-31.0); MEAN CORPUSCULAR HGB CONC 30.9 g/dL (32.0-36.0); MEAN CORPUSCULAR VOLUME 88.7 fL (81.0-99.0); MEAN PLATELET VOLUME 10.3 fL (7.9-10.8); MONOCYTES # (AUTO) 0.5 10^3/uL (0.0-1.0); MONOCYTES % (AUTO) 6.8 %; NEUTROPHILS # (AUTO) 3.6 10^3/uL (1.5-6.6); NEUTROPHILS % (AUTO) 48.6 %; PLT - PLATELET COUNT 265 10^3/uL (130-450); RED BLOOD COUNT 4.78 10^6/uL (4.20-5.40); RED CELL DISTRIBUTION WIDTH 14.4 % (12.0-15.0); WHITE BLOOD COUNT 7.4 x10^3/uL (4.8-10.8)
[2022-10-31 17:52] LABS: % IRON SATURATION 7 % (20-50); ALBUMIN/GLOBULIN RATIO 1.2 (1.0-2.2); ALKALINE PHOSPHATASE 77 IU/L (42-121); ALT ALANINE AMINOTRANSFERASE 45 IU/L (10-60); AST ASPARTATE AMINOTRANSFERASE 45 IU/L (10-42); BILIRUBIN,TOTAL 0.6 mg/dL (0.2-1.0); BUN - BLOOD UREA NITROGEN 8 mg/dL (6-20); CALCIUM 9.6 mg/dL (8.5-10.3); CARBON DIOXIDE - CO2 29 mmol/L (21-32); CHLORIDE 104 mmol/L (101-111); CHOL/HDL RATIO 2.3 (<4.4); CHOLESTEROL 175 mg/dL; CREATININE 0.7 mg/dL (0.4-1.0); GFR - MDRD 89 (>89); GLUCOSE 114 mg/dL (70-100); HDL CHOLESTEROL 77 mg/dL; IRON 32 ug/dL (28-170); LDL CHOLESTEROL,CALCULATED 86 mg/dL; LDL/HDL RATIO 1.1 (<4.4); POTASSIUM 4.2 mmol/L (3.5-5.0); SODIUM 144 mmol/L (135-145); TOTAL IRON BINDING CAPACITY 468 ug/dL (250-450); TOTAL PROTEIN 7.4 g/dL (6.7-8.2); TRANSFERRIN 334 mg/dL (192-382); TRIGLYCERIDES 62 mg/dL; VLDL CHOLESTEROL 12 mg/dL
[2022-10-31 18:05] LABS: THYROID STIMULATING HORMONE 2.41 uIU/mL (0.34-5.60)
[2022-10-31 18:11] LABS: FERRITIN 12.7 ng/mL (11.0-306.8)
[2022-10-31 18:23] LABS: CREATININE,URINE 229.7 mg/dL; MICROALBUM/CREATININE RATIO,UR 40.9 ug/mg (<30.0); MICROALBUMIN,URINE 9.4 mg/dL (0-300.0)
[2022-10-31 20:45] LABS: ESTIMATED AVERAGE GLUCOSE 128 mg/dL (70-100); HEMOGLOBIN A1c% 6.1 % (4.27-6.07)
== END 2022-10-31 10:59 | disposition home or self-care (01) ==
LOC: LAB.N 10:58
PROVIDERS: ATTEND Internal Medicine
DX: R73.03 Prediabetes (principal); E61.1 Iron deficiency; Z79.899 Other long term (current) drug therapy; F41.9 Anxiety disorder, unspecified; F32.A Depression, unspecified
CPT/HCPCS: 36415; 80053; 80061; 82043; 82570; 82728; 83036; 83540; 83721; 84443; 84466; 85025

== ENCOUNTER 2022-11-25 17:29 | Outpatient (CLI) | payer MEDICARE, MEDICAID | END 2022-11-25 23:59 | disposition critical access hospital (66) | LOC: EMS 17:29 | DX: R10.12 Left upper quadrant pain (principal); R11.2 Nausea with vomiting, unspecified; R19.7 Diarrhea, unspecified | CPT/HCPCS: A0425; A0427 ==

== ENCOUNTER 2022-11-25 17:55 | Emergency (ER) | payer MEDICARE, MEDICAID ==
--- OUTSIDE RECORDS SUMMARY | 2022-11-25 17:59 | EXTERNAL MEDICAL SUMMARY RPT | Continuity of Care Document ---
:1975 Author Organization [facility] Address [address] [place] [address] Phone Care Team Providers Name Role Phone Unavailable Unavailable Unavailable Jonel Rios Unavailable Unavailable Allergies and Intolerances date description facility type (no date) No Known Drug Allergies Formerly [facility] (unkn own) Encounters No information. Functional Status No information. Immunizations No information. Medications No information. Problems date description facility 2022-10-04 11:02 [facility] 2022-10-05 03:30 Contact with and (suspected) exposure [place] [address] 2022-10-07 11:33 [facility] 2022-10-07 12:15 Other [facility] 2022-10-07 13:17 Other esophagitis without bleeding [facility] 2022-10-07 13:22 Other esophagitis without [facility] 2022-10-07 13:38 Other [facility]itis without [facility] Procedures date description facility 2022-10-07 00:00 Es[facility]odenoscopy [facility] Results/Labs test date author facility value unit interpret ation Result panel 1 (unknown) (no date) (unknown) [place] (no value) (units (unk nown) Hospital unknown) Result panel 2 (unknown) (no (unknown) (unknown) (no value) (units (unk nown) date) unknown) (unknown) (no (unknown) (unknown) (1) Encounter (units ( unknown) date) for preoperative unknown) screening laboratory testing for COVID-19 virus: (unknown) (no (unknown) (unknown) COVID-19 (units (u nknown) date) unknown) (unknown) (no (unknown) (unknown) [id number] (units (unkn own) date) unknown) (unknown) (no (unknown) (unknown) 10/04/22 (units (unkno wn) date) unknown) (unknown) (no (unknown) (unknown) Age/Sex: 47 / F (units (unknown) date) Date of Service: unknown) (unknown) (no (unknown) (unknown) Allergies (units (unkn own) date) unknown) (unknown) (no (unknown) (unknown) MARIA LUISA Salomon (units ( unknown) date) [id number] unknown) (unknown) (no (unknown) (unknown) Attending Dr: (units ( unknown) date) Digna Thibodeaux unknown) (unknown) (no (unknown) (unknown) Code(s): (units (unkno wn) date) unknown) (unknown) (no (unknown) (unknown) : 1975 (units (unknown) date) Acct:[id number] unknown) (unknown) (no (unknown) (unknown) Dept at [...] ( unknown) date) Allergies Allergy unknown) (Verified 09/28/22 12:39) (unknown) (no (unknown) (unknown) Note (units (unkno wn) date) unknown) (unknown) (no (unknown) (unknown) Nurse Office (units (u nknown) date) Visit unknown) (unknown) (no (unknown) (unknown) Patient: (units (unkno wn) date) Shira Berger unknown) MR#: M (unknown) (no (unknown) (unknown) [...] unknown) effort is made to edit content, supervisor graphite errors (unknown) (no (unknown) (unknown) with and (units (unkno wn) date) (suspected) unknown) exposure to covid-19 Result panel 3 (unknown) (no (unknown) (unknown) (no value) (units (unk nown) date) unknown) (unknown) (no (unknown) (unknown) (1) Encounter (units ( unknown) date) for preoperative unknown) screening laboratory testing for COVID-19 virus: (unknown) (no (unknown) (unknown) COVID-19 (units (u nknown) date) unknown) (unknown) (no (unknown) (unknown) [id number] (units (unkn own) date) unknown) (unknown) (no (unknown) (unknown) 10/04/22 1158 (units ( unknown) date) unknown) (unknown) (no (unknown) (unknown) 10/04/22 (units (unkno wn) date) unknown) (unknown) (no (unknown) (unknown) Age/Sex: 47 / F (units (unknown) date) Date of Service: unknown) (unknown) (no (unknown) (unknown) Allergies (units (unkn own) date) unknown) (unknown) (no (unknown) (unknown) [place], [place] (units ( unknown) date) [id number] unknown) (unknown) (no (unknown) (unknown) Attending Dr: (units ( unknown) date) Digna Thibodeaux unknown) (unknown) (no (unknown) (unknown) Code(s): (units (unkno wn) date) unknown) (unknown) (no (unknown) (unknown) : 1975 (units (unknown) date) Acct:[id number] unknown) (unknown) (no (unknown) (unknown) Dept at [...] (unknown) Patient: (units (unkno wn) date) Shira Berger unknown) MR#: M (unknown) (no (unknown) (unknown) [...] unknown) effort is made to edit content, supervisor graphite errors (unknown) (no (unknown) (unknown) with and (units (unkno wn) date) (suspected) unknown) exposure to covid-19 Result panel 4 (unknown) (no date) (unknown) (unknown) Negative (units (unkn own) unknown) (unknown) (no date) (unknown) (unknown) Negative (units (unkn own) unknown) Result panel 5 (unknown) (no date) (unknown) (unknown) (no value) [...] value) (units (un known) unknown) Result panel 6 (unknown) (no (unknown) (unknown) (no value) (units (unk nown) date) unknown) (unknown) (no (unknown) (unknown) [id number] (units (unkn own) date) unknown) (unknown) (no [...] (unknown) (unknown) : 1975 (units (unknown) date) Acct:[id number] unknown) (unknown) (no (unknown) (unknown) Date Patient [...] to unknown) inspection (unknown) (no (unknown) (unknown) Formerly [facility] (units (unknown) date) [address] [place] [address] unknown) [place] [address] (unknown) (no (unknown) (unknown) Medical History (units [...] (unknown) Patient: (units (unkno wn) date) Shira Berger unknown) MR#: M (unknown) (no (unknown) (unknown) [...] exclusive of unknown) procedural time. Result panel 7 (unknown) (no date) (unknown) (unknown) (no value) (units (un known) unknown) (unknown) (no date) (unknown) (unknown) [id number] (units (unk nown) unknown) (unknown) (no date) [...] (unknown) : (units (unkn own) 1975 unknown) Acct:[id number] (unknown) (no date) (unknown) (unknown) Date of (units (unkn own) Service: unknown) 10/07/22 (unknown) (no date) (unknown) (unknown) History + (units (unk nown) Physical unknown) reviewed/Exam performed by Physician: Yes (unknown) (no date) (unknown) (unknown) Interval Note (units (unknown) unknown) (unknown) (no date) (unknown) (unknown) [place] (units (unkn own) [facility] 121 unknown) [address] [place] [address] (unknown) (no date) (unknown) (unknown) Patient: (units (unkn own) Shira Berger unknown) D MR#: M (unknown) (no date) [...] (units (unknown) or treatment unknown) Result panel 8 (unknown) (no (unknown) (unknown) [...] 1 cassette(s) (unknown) (no (unknown) (unknown) [address] (units (unknown) date) unknown) (unknown) (no (unknown) (unknown) [address] (units (unknown) date) [place] [address], [place], unknown) [place] [id number] (unknown) (no (unknown) (unknown) [id number] (units (unkno wn) date) unknown) (unknown) (no (unknown) (unknown) [place] (units ( unknown) date) [address] unknown) (unknown) (no (unknown) (unknown) CPT . [...] date) . unknown) (unknown) (no (unknown) (unknown) [facility] (units (unknown) date) unknown) (unknown) (no (unknown) (unknown) Chacha Canela (units (unk nown) date) MD Kumar, unknown) Pathologist (unknown) (no (unknown) (unknown) K20.80 (units (unkno wn) date) unknown) (unknown) (no (unknown) (unknown) [facility] Access[facility] (units ( unknown) date) Number: [id number] unknown) (unknown) (no (unknown) (unknown) [facility] (units (unknown) date) Cytology unknown) (unknown) (no (unknown) (unknown) MD Sukhjinder Peterson (units (unknown) date) Phone: unknown) [phone] (unknown) (no (unknown) (unknown) (units (unknown) date) Dictating Dr: unknown) Chacha Heath MD (unknown) (no (unknown) (unknown) MRV 10/09/2022 (units (unknown) date) 1037 Local unknown) (unknown) (no (unknown) (unknown) Material (units (unkno wn) date) submitted: . unknown) (unknown) (no (unknown) (unknown) NPI- [id number] (units (unknown) date) unknown) (unknown) (no (unknown) [...] (unknown) Patient name: (units ( unknown) date) Ab,Shira D unknown) (unknown) (no (unknown) (unknown) Received in [...] unknown) this report has been sent to [phone] (unknown) (no (unknown) (unknown) Squamocolumnar (units (unknown) date) junctional mucosa unknown) with chronic active inflammation. (unknown) (no (unknown) (unknown) TD/TT: 10/09/22 (units (unknown) date) 1535 unknown) (unknown) (no (unknown) (unknown) esophagus, E-G (units (unknown) date) Junction - GEJ unknown) Result panel 9 (unknown) (no date) (unknown) (unknown) (no value) (units (un known) unknown) (unknown) (no date) (unknown) (unknown) [id number] (units (unk nown) unknown) (unknown) (no date) (unknown) (unknown) Age/Sex: 47 / (units (unknown) F unknown) (unknown) (no date) (unknown) (unknown) : (units (unkn own) 1975 unknown) Acct:[id number] (unknown) (no date) (unknown) (unknown) Date of (units (unkn own) Service: unknown) 10/07/22 (unknown) (no date) (unknown) (unknown) Date of (units (unkn own) procedure: unknown) 10/07/22 (unknown) (no date) (unknown) (unknown) EGD Note (units (unkn own) unknown) (unknown) (no date) (unknown) (unknown) [place] (units (unkn own) [facility] unknown) [address] [place] [address] (unknown) (no date) (unknown) (unknown) Operative (units (unk nown) Date/Time/Diagn unknown) oses (unknown) (no date) (unknown) (unknown) Patient: (units (unkn own) Shira Berger unknown) D MR#: M (unknown) (no date) [...] (unkn own) procedure: unknown) 13:08 Result panel 10 (unknown) (no (unknown) (unknown) (no value) (units (unk nown) date) unknown) (unknown) (no (unknown) (unknown) [id number] (units (unkn own) date) unknown) (unknown) (no [...] (unknown) (unknown) : 1975 (units (unknown) date) Acct:[id number] unknown) (unknown) (no (unknown) (unknown) Date of [...] nknown) date) unknown) (unknown) (no (unknown) (unknown) Formerly [facility] (units (unknown) date) [address] unknown) [place] [address] (unknown) (no (unknown) (unknown) Operative (units (unkn own) date) Date/Time/Diagnos unknown) es (unknown) (no (unknown) (unknown) Patient: (units (unkno wn) date) Shira Berger unknown) MR#: M (unknown) (no (unknown) (unknown) [...] placed into Social History date description facility 2022-10-07 00:00 Never smoked tobacco ([facility] Vital Signs date measurement value units [...]
[2022-11-25] MEDS ORDERED: METOCLOPRAMIDE 10 MG/2 ML VIAL IVP STA (18:08)
[2022-11-25] MEDS ORDERED: MAG HYDROX/AL HYDROX/SIMETH 30 ML UDC PO STA (18:08)
[2022-11-25] MEDS ORDERED: LIDOCAINE VISCOUS 2% 15 ML UDC MM STA (18:08)
[2022-11-25] MEDS ORDERED: KETOROLAC 15 MG/ML VIAL IVP STA (18:08)
--- NOTE | 2022-11-25 18:10 | ED Physician Documentation ---
History of Present Illness - Stated complaint Stated Complaint: ABD PX/N/V - Chief complaint Chief Complaint: Abd Pain - History obtained from History obtained from: Patient - Additonal information Additional information: 47-year-old woman who has chronic recurrent upper abdominal pain presents by ambulance for 2 days of left upper quadrant pain that is nonradiating. Worse since 1 PM today. It is associated with vomiting. No diarrhea or constipation. No sick contacts. She has had extensive prior work-ups for these without any specific findings per her. PD PAST MEDICAL HISTORY - Past Medical History Cardiovascular: None Respiratory: None Neuro: None Endocrine/Autoimmune: Other GI: GERD, Other BODYWORK THERAPIST: None : None HEENT: None Psych: Depression, Anxiety, Schizophrenia Musculoskeletal: None Derm: None - Past Surgical History Past Surgical History: Yes /BODYWORK THERAPIST: Breast reduction - Present Medications Home Medications: Ambulatory Orders Medication Instructions Recorded Confirmed OLANZapine [ZyPREXA] 10 mg PO QPM 02/10/13 11/25/[address] [Depakote Dr] 250 mg PO BID 10/05/19 05/20/22 Metformin HCl 500 mg PO DAILY 10/05/19 11/25/22 - Allergies Allergies/Adverse Reactions: Allergies Allergy/AdvReac Type Severity Reaction Status Date / Time No Known Drug Allergies Allergy Verified 10/28/22 16:12 - Social History Does the pt smoke?: No Smoking Status: Never smoker Does the pt drink ETOH?: No Does the pt have substance abuse?: No - Immunizations Immunizations are current?: Yes - POLST Patient has POLST: No PD ED PE NORMAL - Vitals Vital signs reviewed: Yes - General General: Alert and oriented X 3, No acute distress - Abdomen Abdomen: Normal bowel sounds, Soft, Non tender - Neuro Neuro: Alert and oriented X 3, Normal speech Results - Vitals Vitals: Vital Signs - 24 hr 11/25/22 11/25/22 11/25/22 18:04 18:24 19:42 Temperature 36.9 C Heart Rate 95 78 91 Respiratory 18 16 19 Rate Blood Pressure 152/118 H 157/93 H 115/78 O2 Saturation 97 96 100 11/25/22 20:15 Temperature Heart Rate 82 Respiratory 18 Rate Blood Pressure 119/86 H O2 Saturation 96 Oxygen O2 Source Room air - Labs Labs: Laboratory Tests 11/25/22 11/25/22 18:20 18:20 WBC 9.3 RBC 5.52 H Hgb 15.0 Hct 46.5 MCV 84.2 MCH 27.2 MCHC 32.3 RDW 13.2 Plt Count 303 MPV 9.8 Neut # (Auto) 5.6 Lymph # (Auto) 3.0 [place] # (Auto) 0.6 Eos # (Auto) 0.0 Baso # (Auto) 0.1 Absolute Nucleated RBC 0.00 Nucleated RBC % 0.0 Sodium 141 Potassium 3.6 Chloride 102 Carbon Dioxide 30 Anion Gap 9.0 BUN 14 Creatinine 0.7 Estimated GFR (MDRD) 89 Glucose 109 H Calcium 10.5 H Total Bilirubin 0.8 AST 39 ALT 45 Alkaline Phosphatase 86 Total Protein 8.5 H Albumin 4.7 Globulin 3.8 Albumin/Globulin Ratio 1.2 Lipase 34 PD Medical Decision Making - ED course ED course: 47-year-old woman with recurrent upper abdominal pain. Benign exam. CBC reviewed and normal. CMP reviewed and basically normal. Initial therapy was with IV Toradol, GI cocktail orally, and IV Reglan. After this she did not have much relief. This was followed by IV droperidol and IV pantoprazole after which she felt much better and passed a p.o. challenge. Departure - Departure Disposition: 01 Home, Self Care Clinical Impression: Epigastric abdominal pain Vomiting Qualifiers: Vomiting type: unspecified Nausea presence: with nausea Qualified Code(s): R11.2 - Nausea with vomiting, unspecified Condition: Good Record reviewed to determine appropriate education?: Yes Instructions: ED Abdominal Pain Female Non-Specific Abdominal Pain, ED Nausea Vomiting Comments: Call your doctor to arrange a follow-up appointment, make the next available appointment. In the interim, return anytime if worse or if new symptoms develop. Discharge Date/Time: 11/25/22 20:18
[2022-11-25 18:30] LABS: BASOPHILS # (AUTO) 0.1 10^3/uL (0.0-0.1); BASOPHILS % (AUTO) 0.6 %; HCT - HEMATOCRIT 46.5 % (37.0-47.0); MEAN CORPUSCULAR HEMOGLOBIN 27.2 pg (27.0-31.0); MEAN CORPUSCULAR HGB CONC 32.3 g/dL (32.0-36.0); MEAN CORPUSCULAR VOLUME 84.2 fL (81.0-99.0); MEAN PLATELET VOLUME 9.8 fL (7.9-10.8); MONOCYTES # (AUTO) 0.6 10^3/uL (0.0-1.0); MONOCYTES % (AUTO) 6.6 %; NEUTROPHILS # (AUTO) 5.6 10^3/uL (1.5-6.6); NEUTROPHILS % (AUTO) 60.6 %; PLT - PLATELET COUNT 303 10^3/uL (130-450); RED BLOOD COUNT 5.52 10^6/uL (4.20-5.40); RED CELL DISTRIBUTION WIDTH 13.2 % (12.0-15.0); WHITE BLOOD COUNT 9.3 x10^3/uL (4.8-10.8)
[2022-11-25 18:44] LABS: ALBUMIN 4.7 g/dL (3.2-5.5); ALBUMIN/GLOBULIN RATIO 1.2 (1.0-2.2); BILIRUBIN,TOTAL 0.8 mg/dL (0.2-1.0); CALCIUM 10.5 mg/dL (8.5-10.3); CREATININE 0.7 mg/dL (0.4-1.0); POTASSIUM 3.6 mmol/L (3.5-5.0); TOTAL PROTEIN 8.5 g/dL (6.7-8.2)
[2022-11-25] MEDS ORDERED: PANTOPRAZOLE 40 MG VIAL IVP STA (19:19)
[2022-11-25] MEDS ORDERED: DROPERIDOL 5 MG/2 ML VIAL IVP STA (19:19)
[2022-11-25 20:16] VITALS: BP 119/86
== END 2022-11-25 20:18 | disposition home or self-care (01) ==
LOC: ED 17:55
DX: R10.13 Epigastric pain (principal); R11.2 Nausea with vomiting, unspecified
CPT/HCPCS: 36415; 80053; 83690; 85025; 96374; 96375; 99283; A9270; J2765

== ENCOUNTER 2022-12-09 11:50 | Emergency (ER) | payer MEDICARE, MEDICAID ==
[2022-12-09 11:57] VITALS: BP 141/100
--- OUTSIDE RECORDS SUMMARY | 2022-12-09 12:13 | EXTERNAL MEDICAL SUMMARY RPT | Continuity of Care Document ---
:1975 Author Organization [facility] Address [address] [place] [address] Phone Care Team Providers Name Role Phone Unavailable Unavailable Unavailable Jonel Rios Unavailable Unavailable Allergies and Intolerances date description facility type (no date) No Known Drug Allergies [facility] (unkn own) Encounters No information. Functional Status No information. Immunizations No information. Medications No information. Problems date description facility 2022-10-04 11:02 [facility]22-[facility] 03:30 Contact with and (suspected) exposure [place] [address] 2022-10-07 11:33 Other esophagitis without bleeding [facility] 2022-10-07 12:15 Other esophagitis without bleeding [facility] 2022-10-07 13:17 Other esophagitis without bleeding [facility] 2022-10-07 13:22 Other esophagitis without bleeding [facility] 2022-10-07 13:38 Other esophagitis without bleeding [facility] Procedures date description facility 2022-10-07 00:00 Es[facility]astroduodenoscopy [facility] ital Results/Labs test date author facility value unit interpret ation Result panel 1 (unknown) (no date) (unknown) [facility] (no value) (units (unk nown) Hospital unknown) Result panel 2 (unknown) (no (unknown) (unknown) (no value) (units (unk nown) date) unknown) (unknown) (no (unknown) (unknown) (1) Encounter (units ( unknown) date) for preoperative unknown) screening laboratory testing for COVID-19 virus: (unknown) (no (unknown) (unknown) COVID-19 (units (u nknown) date) unknown) (unknown) (no (unknown) (unknown) [id number] (units (unkn own) date) unknown) (unknown) (no (unknown) (unknown) 10/04/22 (units (unkno wn) date) unknown) (unknown) (no (unknown) (unknown) Age/Sex: 47 / F (units (unknown) date) Date of Service: unknown) (unknown) (no (unknown) (unknown) Allergies (units (unkn own) date) unknown) (unknown) (no (unknown) (unknown) MARIA LUISA Salomon (units ( unknown) date) [address] unknown) (unknown) (no (unknown) (unknown) Attending Dr: (units ( unknown) date) Digna Thibodeaux unknown) (unknown) (no (unknown) (unknown) Code(s): (units (unkno wn) date) unknown) (unknown) (no (unknown) (unknown) : 1975 (units (unknown) date) Acct:[id number] unknown) (unknown) (no (unknown) (unknown) Dept at [...] unknown) effort is made to edit content, professor of business errors (unknown) (no (unknown) (unknown) with and (units (unkno wn) date) (suspected) unknown) exposure to covid-19 Result panel 3 (unknown) (no (unknown) (unknown) (no value) (units (unk nown) date) unknown) (unknown) (no (unknown) (unknown) (1) Encounter (units ( unknown) date) for preoperative unknown) screening laboratory testing for COVID-19 virus: (unknown) (no (unknown) (unknown) COVID-19 (units (u nknown) date) unknown) (unknown) (no (unknown) (unknown) [id number] (units (unkn own) date) unknown) (unknown) (no (unknown) (unknown) 10/04/22 1158 (units ( unknown) date) unknown) (unknown) (no (unknown) (unknown) 10/04/22 (units (unkno wn) date) unknown) (unknown) (no (unknown) (unknown) Age/Sex: 47 / F (units (unknown) date) Date of Service: unknown) (unknown) (no (unknown) (unknown) Allergies (units (unkn own) date) unknown) (unknown) (no (unknown) (unknown) [place], [place] (units ( unknown) date) [address] unknown) (unknown) (no (unknown) (unknown) Attending Dr: (units ( unknown) date) Digna Thibodeaux unknown) (unknown) (no (unknown) (unknown) Code(s): (units (unkno wn) date) unknown) (unknown) (no (unknown) (unknown) : 1975 (units (unknown) date) Acct:[id number] unknown) (unknown) (no (unknown) (unknown) Dept at [...] unknown) effort is made to edit content, professor of business errors (unknown) (no (unknown) (unknown) with and [...] nown) date) unknown) (unknown) (no (unknown) (unknown) [id number] (units (unkn own) date) unknown) (unknown) (no [...] (unknown) (unknown) : 1975 (units (unknown) date) Acct:[id number] unknown) (unknown) (no (unknown) (unknown) Date Patient [...] to unknown) inspection (unknown) (no (unknown) (unknown) [facility] (units (unknown) date) [address] [place] [address] unknown) [place] [address] (unknown) (no (unknown) (unknown) Medical History (units [...] known) unknown) (unknown) (no date) (unknown) (unknown) [id number] (units (unk nown) unknown) (unknown) (no date) [...] (unknown) : (units (unkn own) 1975 unknown) Acct:[id number] (unknown) (no date) (unknown) (unknown) Date of (units (unkn own) Service: unknown) 10/07/22 (unknown) (no date) (unknown) (unknown) History + (units (unk nown) Physical unknown) reviewed/Exam performed by Physician: Yes (unknown) (no date) (unknown) (unknown) Interval Note (units (unknown) unknown) (unknown) (no date) (unknown) (unknown) [place] (units (unkn own) [facility] 121 unknown) [address] [place] [address] (unknown) (no date) (unknown) (unknown) Patient: (units [...] date) unknown) (unknown) (no (unknown) (unknown) [address] (units (unknown) date) [place] [address], [place], unknown) [place] [id number] (unknown) (no (unknown) (unknown) [id number] (units (unkno wn) date) unknown) (unknown) (no (unknown) (unknown) [place] (units ( unknown) date) [address] unknown) (unknown) (no (unknown) (unknown) CPT . [...] date) . unknown) (unknown) (no (unknown) (unknown) [facility] (units (unknown) date) unknown) (unknown) (no (unknown) (unknown) Chacha Canela (units (unk nown) date) MD Kumar, unknown) Pathologist (unknown) (no (unknown) (unknown) K20.80 (units (unkno wn) date) unknown) (unknown) (no (unknown) (unknown) [facility] Access[facility] (units ( unknown) date) Number: [id number] unknown) (unknown) (no (unknown) (unknown) [facility] (units (unknown) date) Cytology unknown) (unknown) (no (unknown) (unknown) MD Sukhjinder Peterson (units (unknown) date) Phone: unknown) [phone] (unknown) (no (unknown) (unknown) (units (unknown) date) Dictating Dr: unknown) Chacha Heath MD (unknown) (no (unknown) (unknown) MRV 10/09/2022 (units (unknown) date) 1037 Local unknown) (unknown) (no (unknown) (unknown) Material (units (unkno wn) date) submitted: . unknown) (unknown) (no (unknown) (unknown) NPI- [id number] (units (unknown) date) unknown) (unknown) (no (unknown) (unknown) Negative for (units (u nknown) date) dysplasia and unknown) malignancy. (unknown) (no (unknown) (unknown) Negative for (units (u nknown) date) intestinal unknown) metaplasia. (unknown) (no (unknown) (unknown) No. of (units (unkno wn) date) containers..01 unknown) Tissue (unknown) (no (unknown) (unknown) Ordering (units (unkno wn) date) Physician: unknown) Richard Fernch MD (unknown) (no (unknown) (unknown) Pathologist (units [...] unknown) this report has been sent to [phone] (unknown) (no (unknown) (unknown) Squamocolumnar (units (unknown) date) junctional mucosa unknown) with chronic active inflammation. (unknown) (no (unknown) (unknown) TD/TT: 10/09/22 (units (unknown) date) 1535 unknown) (unknown) (no (unknown) (unknown) esophagus, E-G (units (unknown) date) J[place] - GEJ unknown) Result panel 9 (unknown) (no date) (unknown) (unknown) (no value) (units (un known) unknown) (unknown) (no date) (unknown) (unknown) [id number] (units (unk nown) unknown) (unknown) (no date) (unknown) (unknown) Age/Sex: 47 / (units (unknown) F unknown) (unknown) (no date) (unknown) (unknown) : (units (unkn own) 1975 unknown) Acct:[id number] (unknown) (no date) (unknown) (unknown) Date of (units (unkn own) Service: unknown) 10/07/22 (unknown) (no date) (unknown) (unknown) Date of (units (unkn own) procedure: unknown) 10/07/22 (unknown) (no date) (unknown) (unknown) EGD Note (units (unkn own) unknown) (unknown) (no date) (unknown) (unknown) [facility] (unkn own[facility] unknown) [address] [place] [address] (unknown) (no date) (unknown) (unknown) Operative (units [...] nown) date) unknown) (unknown) (no (unknown) (unknown) [id number] (units (unkn own) date) unknown) (unknown) (no [...] (unknown) (unknown) : 1975 (units (unknown) date) Acct:[id number] unknown) (unknown) (no (unknown) (unknown) Date of [...] nknown) date) unknown) (unknown) (no (unknown) (unknown) [facility] (units (unknown) date) [address] unknown) [place] [address] (unknown) (no (unknown) (unknown) Operative (units (unkn [...] description facility 2022-10-07 00:00 Never smoked tobacco ([facility] Vital Signs date measurement value units 2022-10-07 [...]
[2022-12-09 12:17] LABS: BASOPHILS % (AUTO) 0.4 %; HCT - HEMATOCRIT 47.4 % (37.0-47.0); HGB - HEMOGLOBIN 15.6 g/dL (12.0-16.0); LYMPHOCYTES # (AUTO) 2.5 10^3/uL (1.5-3.5); LYMPHOCYTES % (AUTO) 30.7 %; MEAN CORPUSCULAR HEMOGLOBIN 27.3 pg (27.0-31.0); MEAN CORPUSCULAR HGB CONC 32.9 g/dL (32.0-36.0); MEAN CORPUSCULAR VOLUME 82.9 fL (81.0-99.0); MEAN PLATELET VOLUME 10.1 fL (7.9-10.8); MONOCYTES # (AUTO) 0.5 10^3/uL (0.0-1.0); MONOCYTES % (AUTO) 6.5 %; NEUTROPHILS # (AUTO) 5.1 10^3/uL (1.5-6.6); NEUTROPHILS % (AUTO) 62.2 %; PLT - PLATELET COUNT 306 10^3/uL (130-450); RED BLOOD COUNT 5.72 10^6/uL (4.20-5.40); RED CELL DISTRIBUTION WIDTH 12.9 % (12.0-15.0); WHITE BLOOD COUNT 8.2 x10^3/uL (4.8-10.8)
[2022-12-09 12:30] LABS: ALBUMIN 4.9 g/dL (3.2-5.5); ALBUMIN/GLOBULIN RATIO 1.3 (1.0-2.2); BILIRUBIN,TOTAL 0.6 mg/dL (0.2-1.0); CALCIUM 9.7 mg/dL (8.5-10.3); CREATININE 0.8 mg/dL (0.4-1.0); POTASSIUM 3.7 mmol/L (3.5-5.0); TOTAL PROTEIN 8.8 g/dL (6.7-8.2)
[2022-12-09 12:35] LABS: HCG UR QUAL NEGATIVE
--- NOTE | 2022-12-09 16:05 | ED Physician Documentation ---
History of Present Illness - Stated complaint Stated Complaint: VOMITING,ABD PX - Chief complaint Chief Complaint: Abd Pain - Additonal information Additional information: 47-year-old female presents emergency department for evaluation of both right upper quadrant and right lower quadrant abdominal pain. Seen in this emergency department on 25 November for upper abdominal pain. She has a pending ultrasound scheduled for the . She states that she has been intermittently vomiting but this morning her right lower quadrant began to hurt. She states she Has had extensive imaging for this in the past without a work-up. 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 : None HEENT: None Psych: Depression, Anxiety, Schizophrenia Musculoskeletal: None Derm: None - Past Surgical History Past Surgical History: Yes /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: Breast reduction - Present Medications Home Medications: Ambulatory Orders Medication Instructions Recorded Confirmed OLANZapine [ZyPREXA] 10 mg PO QPM 02/10/13 11/25/[address] [Odell Sales] 250 mg PO BID 10/05/19 05/20/22 Metformin HCl 500 mg PO DAILY 10/05/19 11/25/22 Ondansetron Odt [Zofran] 4 mg TL Q6H PRN #10 tablet 12/09/22 - Allergies Allergies/Adverse Reactions: Allergies Allergy/AdvReac Type Severity Reaction Status Date / Time No Known Drug Allergies Allergy Verified 12/09/22 11:57 - Social History Does the pt smoke?: No Smoking Status: Never smoker Does the pt drink ETOH?: No Does the pt have substance abuse?: No - Immunizations Immunizations are current?: Yes - POLST Patient has POLST: No PD ED PE NORMAL - General General: Alert and oriented X 3, No acute distress. No: Well developed/nou rished (obese) - Neck Neck: Supple, no meningeal sign - Cardiac Cardiac: RRR, No murmur - Respiratory Respiratory: No respiratory distress, Clear bilaterally - Abdomen Abdomen: Normal bowel sounds, Soft. No: Non tender (Mild tenderness elicited with palpation both the right upper and right lower quadrant of the abdomen.No guarding or rebound) - Back Back: No CVA TTP - Derm Derm: Normal color, Warm and dry - Extremities Extremities: No deformity - Neuro Neuro: Alert and oriented X 3, post production assistant 2-12 intact Eye Opening: Spontaneous Motor: Obeys Commands Verbal: Oriented GCS Score: 15 Results - Vitals Vitals: Vital Signs - 24 hr 12/09/22 12/09/22 11:55 15:45 Temperature 36.3 C L Heart Rate 97 87 Respiratory 16 17 Rate Blood Pressure 141/100 H O2 Saturation 96 98 Oxygen O2 Source Room air - Labs Labs: Laboratory Tests 12/09/22 12/09/22 12/09/22 12:08 12:08 12:15 WBC 8.2 RBC 5.72 H Hgb 15.6 Hct 47.4 H MCV 82.9 MCH 27.3 MCHC 32.9 RDW 12.9 Plt Count 306 MPV 10.1 Neut # (Auto) 5.1 Lymph # (Auto) 2.5 Bell # (Auto) 0.5 Eos # (Auto) 0.0 Baso # (Auto) 0.0 Absolute Nucleated RBC 0.00 Nucleated RBC % 0.0 Sodium 138 Potassium 3.7 Chloride 104 Carbon Dioxide 25 Anion Gap 9.0 BUN 11 Creatinine 0.8 Estimated GFR (MDRD) 77 L Glucose 110 H Calcium 9.7 Total Bilirubin 0.6 AST 43 H ALT 48 Alkaline Phosphatase 93 Total Protein 8.8 H Albumin 4.9 Globulin 3.9 Albumin/Globulin Ratio 1.3 Lipase 32 Urine Color Urine Clarity Urine pH Ur Specific [place] Urine Protein Urine Glucose (UA) Urine Ketones Urine Occult Blood Urine Nitrite Urine Bilirubin Urine Urobilinogen Ur Leukocyte Esterase Urine RBC Urine WBC Ur Squamous Epith Cells Urine Bacteria Urine Mucus Ur Microscopic Review Urine Culture Comments Urine HCG, Qual NEGATIVE 12/09/22 16:05 WBC RBC Hgb Hct MCV MCH MCHC RDW Plt Count MPV Neut # (Auto) Lymph # (Auto) Bell # (Auto) Eos # (Auto) Baso # (Auto) Absolute Nucleated RBC Nucleated RBC % Sodium Potassium Chloride Carbon Dioxide Anion Gap BUN Creatinine Estimated GFR (MDRD) Glucose Calcium Total Bilirubin AST ALT Alkaline Phosphatase Total Protein Albumin Globulin Albumin/Globulin Ratio Lipase Urine Color YELLOW Urine Clarity CLOUDY Urine pH 6.0 Ur Specific [place] >=1.030 H Urine Protein 100 H Urine Glucose (UA) NEGATIVE Urine Ketones >=80 H Urine Occult Blood SMALL H Urine Nitrite NEGATIVE Urine Bilirubin NEGATIVE Urine Urobilinogen 0.2 (NORMAL) Ur Leukocyte Esterase LARGE H Urine RBC 0-5 Urine WBC >25 H Ur Squamous Epith Cells MANY Squamous H Urine Bacteria Many H Urine Mucus Moderate Strands Ur Microscopic Review INDICATED Urine Culture Comments NOT INDICATED Urine HCG, Qual - Rads (name of study) CT abd wo Relevant Findings:: Final report received, EMP independent interpretation of test PD Medical Decision Making - ED course Complexity details: reviewed results, re-evaluated patient, considered differential, d/w patient ED course: 47-year-old female comes to the emergency department for evaluation of right-dorota ed abdominal pain. Some intermittent vomiting but no fevers. Scheduled for an outpatient ultrasound in 48 hours time. Here in the emergency department she did have some minimal right upper and right lower quadrant abdominal tenderness without guarding or rebound. CBC and electrolytes as interpreted by myself are essentially unremarkable with no acute worrisome findings. Her urinalysis is not consistent with infection. A CT of the abdomen shows cholelithiasis without findings of cholecystitis. Given the normal LFTs and rather benign abdominal exam I deferred doing an abdominal ultrasound today as it is scheduled in 48 hours time. I have advised the patient to follow closely with Dr. Middleton for surgery referral. We have also discussed a low-fat no fat diet in the setting of gallstones. Prescription for Zofran was sent to her preferred pharmacy. The usual emergent return precautions were discussed for worsening symptoms Departure - Departure Disposition: 01 Home, Self Care Clinical Impression: Cholelithiasis Qualifiers: Cholelithiasis location: gallbladder Cholecystitis presence: without cholecystitis Biliary obstruction: without biliary obstruction Qualified Code(s): K80.20 - Calculus of gallbladder without cholecystitis without obstruction Condition: Stable Record reviewed to determine appropriate education?: Yes Instructions: Gallstones Dc Follow-Up: Jonel Middleton MD [Primary Care Provider] - Prescriptions: Ondansetron Odt [Zofran] 4 mg TL Q6H PRN #10 tablet PRN Reason: Nausea / Vomiting Comments: Shira you came to the emergency department today because you have been having pain in the right side of your abdomen. You are scheduled for an ultrasound on the of your gallbladder. Please do not miss this appointment. Your labs today were essentially normal and showed no signs of gallbladder or liver inflammation. However the CT scan does show that you have gallstones in the gallbladder. Dr. Middleton should make a referral for you to surgery for this. The ultrasound in 2 days will also help confirm this diagnosis. In general those with gallstones must avoid fats at all cost. No dairy cheese or red meats. If you would like protein and chicken it must be boiled. I sent a prescription for Zofran to your preferred pharmacy. If at any point you find that you have worsening symptoms, develop fevers or have uncontrolled vomiting despite the Zofran then please return to the ER for second evaluation
[2022-12-09 16:12] LABS: GLUCOSE, URINE (UA) NEGATIVE (NEGATIVE); KETONES,URINE (UA) >=80 mg/dL (NEGATIVE); LEUKOCYTE ESTERASE, URINE LARGE (NEGATIVE); NITRITE,URINE NEGATIVE (NEGATIVE); OCCULT BLOOD,URINE SMALL (NEGATIVE); PROTEIN,URINE 100 mg/dL (NEGATIVE); UROBILINOGEN,URINE 0.2 (NORMAL) E.U./dL (NORMAL)
[2022-12-09 16:20] LABS: CLARITY,URINE CLOUDY (CLEAR)
[2022-12-09 16:28] LABS: BACTERIA,URINE Many /HPF (None Seen); MUCUS,URINE Moderate Strands; RBC,URINE 0-5 /HPF (0-5); SQUAMOUS EPITHELIAL CELL,UR MANY Squamous (<= Few); WBC,URINE >25 /HPF (0-5)
[2022-12-09 16:30] LABS: BILIRUBIN,URINE NEGATIVE (NEGATIVE); ICTOTEST,URINE NEGATIVE
--- NOTE | 2022-12-09 16:35 | CT Report ---
PROCEDURE: ABDOMEN/PELVIS WO INDICATIONS: RLQ abd pain TECHNIQUE: Noncontrast 5 mm thick sections acquired from the diaphragms to the symphysis. 5 mm coronal and sagi ttal reformats were then performed. For radiation dose reduction, the following was used: automated exposure control, adjustment of mA and/or kV according to patient size. COMPARISON: None. FINDINGS: Image quality: Excellent. ABDOMEN: Lung bases: Lung bases are clear. Heart size is normal. Moderate hiatal hernia. Liver: Hepatic steatosis. Gallbladder: Cholelithiasis versus sludge. No wall thickening or distention to suggest acute cholecys titis. Spleen: Unremarkable. Kidneys: Unremarkable. Adrenals: Unremarkable. Pancreas: Unremarkable. Peritoneum and bowel: Unenhanced bowel loops demonstrate normal wall thickness and caliber. No free fluid or air. Appendix is normal. Nodes and vessels: No retroperitoneal or mesenteric adenopathy by size criteria. Aorta and inferior vena cava are normal in caliber. Miscellaneous: Small umbilical hernia containing fat. PELVIS: Genitourinary: Bladder wall thickness is normal. Miscellaneous: No inguinal hernias or adenopathy. Bones: No suspicious bony lesions. No vertebral body compression fractures. IMPRESSION: 1.Cholelithiasis versus sludge without evidence of acute cholecystitis. 2.Normal appendix. Reviewed by: Santiago Osman on 12/09/2022 4:34 PM PDT Approved by: Santiago Osman on 12/09/2022 4:34 PM PDT Station ID: [id number]
== END 2022-12-09 17:33 | disposition home or self-care (01) ==
LOC: ED 11:50
DX: K80.20 Calculus of gallbladder without cholecystitis without obstruction (principal)
CPT/HCPCS: 36415; 80053; 81001; 81003; 81025; 83690; 85025; 87086; 99284

== ENCOUNTER 2023-07-11 14:45 | Outpatient (CLI) | payer MEDICARE, MEDICAID ==
[2023-07-11 17:45] LABS: BASOPHILS # (AUTO) 0.1 10^3/uL (0.0-0.1); BASOPHILS % (AUTO) 0.8 %; HGB - HEMOGLOBIN 12.7 g/dL (12.0-16.0); LYMPHOCYTES # (AUTO) 2.7 10^3/uL (1.5-3.5); LYMPHOCYTES % (AUTO) 41.5 %; MEAN CORPUSCULAR HEMOGLOBIN 25.1 pg (27.0-31.0); MEAN PLATELET VOLUME 10.7 fL (7.9-10.8); MONOCYTES # (AUTO) 0.4 10^3/uL (0.0-1.0); MONOCYTES % (AUTO) 6.6 %; NEUTROPHILS # (AUTO) 3.3 10^3/uL (1.5-6.6); NEUTROPHILS % (AUTO) 50.8 %; PLT - PLATELET COUNT 299 10^3/uL (130-450); RED BLOOD COUNT 5.06 10^6/uL (4.20-5.40); RED CELL DISTRIBUTION WIDTH 15.2 % (12.0-15.0); WHITE BLOOD COUNT 6.5 x10^3/uL (4.8-10.8)
[2023-07-11 18:08] LABS: ALBUMIN 4.7 g/dL (3.2-5.5); ALBUMIN/GLOBULIN RATIO 1.9 (1.0-2.2); BILIRUBIN,TOTAL 0.5 mg/dL (0.2-1.0); CALCIUM 9.9 mg/dL (8.5-10.3); CREATININE 0.7 mg/dL (0.6-1.3); POTASSIUM 3.6 mmol/L (3.5-4.5); TOTAL PROTEIN 7.2 g/dL (6.4-8.9)
== END 2023-07-11 15:00 | disposition home or self-care (01) ==
LOC: LAB.N 14:45
PROVIDERS: ATTEND Physician Assistant Medical
DX: R10.9 Unspecified abdominal pain (principal)
CPT/HCPCS: 36415; 80053; 83690; 85025; 87077; 87086; 87181

== ENCOUNTER 2023-07-19 12:12 | Emergency (ER) | payer MEDICARE, MEDICAID ==
--- NOTE | 2023-07-19 12:20 | ED Physician Documentation ---
History of Present Illness - Stated complaint Stated Complaint: FEMALE - History obtained from History obtained from: Patient, EMS - History of Present Illness Pain level max: 8 Pain level now: 8 - Additonal information Additional information: Patient is a 48-year-old female brought in by EMS today. She has had abdominal pain for the past 4 days. Diffuse, crampy, worse in the left upper and left lower quadrants. Has had diarrhea, nausea as well. No vomiting. No fevers. No chills. Has had some dysuria and was seen at a walk-in clinic. She was started on an antibiotic that she does not know the name of for a potential UTI. She states her abdominal pain is worse today. No blood in the stool or the urine. Review of Systems Constitutional: denies: Fever, Chills Respiratory: denies: Cough GI: reports: Nausea, Diarrhea. 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 - Present Medications Home Medications: Ambulatory Orders Medication Instructions Recorded Confirmed OLANZapine [ZyPREXA] 10 mg PO QPM 02/10/13 11/25/[address] [Odell Sales] 250 mg PO BID 10/05/19 05/20/22 Metformin HCl 500 mg PO DAILY 10/05/19 11/25/22 Ondansetron Odt [Zofran] 4 mg TL Q6H PRN #10 tablet 12/09/22 cephALEXin [Keflex] 500 mg PO Q6H #20 cap 07/19/23 - Allergies Allergies/Adverse Reactions: Allergies Allergy/AdvReac Type Severity Reaction Status Date / Time No Known Drug Allergies Allergy Verified 12/09/22 11:57 - Social History Does the pt smoke?: No Smoking Status: Never smoker Does the pt drink ETOH?: No Does the pt have substance abuse?: No - Immunizations Immunizations are current?: Yes - POLST Patient has POLST: No PD ED PE NORMAL - Vitals Vital signs reviewed: Yes - General General: Alert and oriented X 3, No acute distress - HEENT HEENT: PERRL, Moist mucous membranes - Neck Neck: Supple, no meningeal sign - Cardiac Cardiac: RRR, Strong equal pulses - Respiratory Respiratory: No respiratory distress, Clear bilaterally - Abdomen Abdomen: Soft, Non distended, Other (Mild tenderness palpation left lower quadrant. No peritoneal signs.) - Back Back: No CVA TTP, No spinal TTP - Derm Derm: Warm and dry - Extremities Extremities: No edema - Neuro Neuro: Alert and oriented X 3 - Psych Psych: Normal mood, Normal affect Results - Vitals Vitals: Vital Signs - 24 hr 07/19/23 07/19/23 07/19/23 12:15 12:19 14:19 Temperature 36.1 C L 36.5 C 36.5 C Heart Rate 78 78 76 Respiratory 18 18 16 Rate Blood Pressure 129/86 H 129/86 H 128/82 H O2 Saturation 94 94 96 Oxygen O2 Source Room air - Labs Labs: Laboratory Tests 07/19/23 07/19/23 07/19/23 12:23 12:54 12:54 WBC 6.6 RBC 5.55 H Hgb 14.0 Hct 44.2 MCV 79.6 L MCH 25.2 L MCHC 31.7 L RDW 15.0 Plt Count 281 MPV 9.7 Neut # (Auto) 3.6 Lymph # (Auto) 2.4 Weld # (Auto) 0.4 Eos # (Auto) 0.1 Baso # (Auto) 0.1 Absolute Nucleated RBC 0.00 Nucleated RBC % 0.0 Sodium 140 Potassium 3.8 Chloride 104 Carbon Dioxide 30 Anion Gap 6.0 BUN 10 Creatinine 0.8 Estimated GFR (MDRD) 76 L Glucose 101 Calcium 10.0 Total Bilirubin 0.6 AST 24 ALT 25 Alkaline Phosphatase 102 Total Protein 8.0 Albumin 4.9 Globulin 3.1 Albumin/Globulin Ratio 1.6 Lipase 25 Urine Color YELLOW Urine Clarity CLOUDY Urine pH 5.5 Ur Specific [place] >=1.030 H Urine Protein 100 H Urine Glucose (UA) NEGATIVE Urine Ketones TRACE Urine Occult Blood TRACE-INTA Urine Nitrite NEGATIVE Urine Bilirubin NEGATIVE Urine Urobilinogen 0.2 (NORMAL) Ur Leukocyte Esterase MODERATE H Urine RBC TNTC H Urine WBC >25 H Ur Squamous Epith Cells MANY Squamous H Urine Bacteria Many H Ur Microscopic Review INDICATED Urine Culture Comments NOT INDICATED Urine HCG, Qual NEGATIVE - Rads (name of study) CT abdomen pelvis Relevant Findings:: Final report received, See rad report PD Medical Decision Making - ED course Complexity details: reviewed results, re-evaluated patient, considered differential, d/w patient ED course: No acute findings on CT scan of the abdomen and pelvis. She is on ciprofloxacin and this may be causing her abdominal pain and diarrhea. We will change this to Keflex. Her urine culture was reviewed and is sensitive to Keflex. She was given a dose of Rocephin here as well. No evidence of pyelonephritis or sepsis. Patient is well-appearing, nontoxic. Afebrile. Tolerating p.o. without difficulty. Patient counseled regarding signs and symptoms for which I believe and urgent re-evaluation would be necessary. Patient with good understanding of and agreement to plan and is comfortable going home at this time This document was made in part using voice recognition software. While efforts are made to proofread this document, sound alike and grammatical errors may occur. Departure - Departure Disposition: 01 Home, Self Care Clinical Impression: UTI (urinary tract infection) Qualifiers: Urinary tract infection type: acute cystitis Hematuria presence: without hematuria Qualified Code(s): N30.00 - Acute cystitis without hematuria Condition: Good Instructions: ED UTI Cystitis Female Follow-Up: your,doctor in 1 week [Other] Prescriptions: cephALEXin [Keflex] 500 mg PO Q6H #20 cap Comments: You can stop the ciprofloxacin. We will change it to Keflex to see if you tolerate this better. [facility] in [place]. Please take all antibiotics until gone. Please return if you worsen. Your CT scan does not show any acute abnormalities today. Forms: PCP List
[2023-07-19 12:40] LABS: GLUCOSE, URINE (UA) NEGATIVE (NEGATIVE); KETONES,URINE (UA) TRACE mg/dL (NEGATIVE); LEUKOCYTE ESTERASE, URINE MODERATE (NEGATIVE); NITRITE,URINE NEGATIVE (NEGATIVE); OCCULT BLOOD,URINE TRACE-INTA (NEGATIVE); PH,URINE 5.5 PH (5.0-7.5); PROTEIN,URINE 100 mg/dL (NEGATIVE); UROBILINOGEN,URINE 0.2 (NORMAL) E.U./dL (NORMAL)
[2023-07-19 12:48] LABS: CLARITY,URINE CLOUDY (CLEAR)
[2023-07-19 12:49] LABS: BACTERIA,URINE Many /HPF (None Seen); BILIRUBIN,URINE NEGATIVE (NEGATIVE); HCG UR QUAL NEGATIVE; ICTOTEST,URINE NEGATIVE; RBC,URINE TNTC /HPF (0-5); SQUAMOUS EPITHELIAL CELL,UR MANY Squamous (<= Few); WBC,URINE >25 /HPF (0-5)
[2023-07-19 12:59] LABS: BASOPHILS # (AUTO) 0.1 10^3/uL (0.0-0.1); BASOPHILS % (AUTO) 0.8 %; EOSINOPHILS # (AUTO) 0.1 10^3/uL (0.0-0.7); HCT - HEMATOCRIT 44.2 % (37.0-47.0); LYMPHOCYTES # (AUTO) 2.4 10^3/uL (1.5-3.5); LYMPHOCYTES % (AUTO) 36.2 %; MEAN CORPUSCULAR HEMOGLOBIN 25.2 pg (27.0-31.0); MEAN CORPUSCULAR HGB CONC 31.7 g/dL (32.0-36.0); MEAN CORPUSCULAR VOLUME 79.6 fL (81.0-99.0); MEAN PLATELET VOLUME 9.7 fL (7.9-10.8); MONOCYTES # (AUTO) 0.4 10^3/uL (0.0-1.0); MONOCYTES % (AUTO) 6.7 %; NEUTROPHILS # (AUTO) 3.6 10^3/uL (1.5-6.6); NEUTROPHILS % (AUTO) 54.1 %; PLT - PLATELET COUNT 281 10^3/uL (130-450); RED BLOOD COUNT 5.55 10^6/uL (4.20-5.40); WHITE BLOOD COUNT 6.6 x10^3/uL (4.8-10.8)
[2023-07-19 13:13] LABS: ALBUMIN 4.9 g/dL (3.2-5.5); ALBUMIN/GLOBULIN RATIO 1.6 (1.0-2.2); BILIRUBIN,TOTAL 0.6 mg/dL (0.2-1.0); CREATININE 0.8 mg/dL (0.6-1.3); POTASSIUM 3.8 mmol/L (3.5-4.5)
[2023-07-19] MEDS ORDERED: cefTRIAXone 1 GM VIAL IM STA (14:52)
[2023-07-19] MEDS ORDERED: LIDOCAINE 1% 2 ML VIAL MC ONE (14:52)
--- NOTE | 2023-07-19 15:02 | CT Report ---
PROCEDURE: ABDOMEN/PELVIS WO INDICATIONS: LLQ Abdominal pain, diverticulitis suspected TECHNIQUE: A CT scan of the abdomen and pelvis was performed without the use of intravenous contrast. Images we re recorded and evaluated at appropriate window settings. Reformats: coronal and sagittal. For radiat ion dose reduction, the following was used: automated exposure control, adjustment of mA and/or kV ac cording to patient size. COMPARISON: None. FINDINGS: Image quality: Excellent. Lung bases and heart: Unremarkable. Liver: No solid mass. Gallbladder and biliary tree: Gallbladder is not visualized. No central biliary dilation. Spleen: No splenomegaly. Pancreas: No pancreatic ductal dilation. Adrenals: No adrenal nodule. Kidneys and ureters: No hydronephrosis. No renal cystic lesion which requires follow up. No solid mas s. Bowel and peritoneum: Hiatal hernia. No bowel distension. No pathologic free fluid. The appendix is n ormal. No evidence of acute diverticulitis. Lymph nodes: No central or retroperitoneal adenopathy. Vessels: No infrarenal aortic aneurysm. PELVIS Reproductive organs: Unremarkable. Bladder: No wall thickness, accounting for underdistention. Pelvic lymph nodes: No pelvic adenopathy by size criteria. Bones: No aggressive osseous abnormality. Other: Fat-containing inguinal hernia. IMPRESSION: No hydronephrosis or obstructing renal stone. No evidence of acute diverticulitis. Small umbilical fat-containing hernia. Small hiatal hernia. Reviewed by: Jonel Her MD on 07/19/2023 2:01 PM MIGUEL Approved by: Jonel Her MD on 07/19/2023 2:01 PM AKDANAE Station ID: [id number]
[2023-07-19 15:39] VITALS: BP 115/79; O2SAT 98
== END 2023-07-19 15:32 | disposition home or self-care (01) ==
LOC: EDUNIT# → ED 12:12
DX: R10.32 Left lower quadrant pain (principal); R10.12 Left upper quadrant pain; R19.7 Diarrhea, unspecified; N30.00 Acute cystitis without hematuria
CPT/HCPCS: 36415; 80053; 81001; 81003; 81025; 83690; 85025; 87086; 96372; 99283; 99284

== ENCOUNTER 2023-10-04 14:20 | Outpatient (CLI) | payer MEDICARE, MEDICAID ==
[2023-10-04 19:24] LABS: BASOPHILS % (AUTO) 0.3 %; EOSINOPHILS # (AUTO) 0.1 10^3/uL (0.0-0.7); HCT - HEMATOCRIT 43.4 % (37.0-47.0); HGB - HEMOGLOBIN 13.7 g/dL (12.0-16.0); LYMPHOCYTES # (AUTO) 2.4 10^3/uL (1.5-3.5); LYMPHOCYTES % (AUTO) 34.8 %; MEAN CORPUSCULAR HGB CONC 31.6 g/dL (32.0-36.0); MEAN CORPUSCULAR VOLUME 82.4 fL (81.0-99.0); MONOCYTES # (AUTO) 0.5 10^3/uL (0.0-1.0); MONOCYTES % (AUTO) 7.1 %; NEUTROPHILS # (AUTO) 3.9 10^3/uL (1.5-6.6); NEUTROPHILS % (AUTO) 55.7 %; PLT - PLATELET COUNT 318 10^3/uL (130-450); RED BLOOD COUNT 5.27 10^6/uL (4.20-5.40); RED CELL DISTRIBUTION WIDTH 15.4 % (12.0-15.0)
[2023-10-04 19:35] LABS: % IRON SATURATION 13 % (20-50); BUN - BLOOD UREA NITROGEN 9 mg/dL (6-20); CALCIUM 9.7 mg/dL (8.5-10.3); CARBON DIOXIDE - CO2 27 mmol/L (21-32); CHLORIDE 103 mmol/L (101-111); CHOL/HDL RATIO 2.5 (<4.4); CHOLESTEROL 187 mg/dL; CREATININE 0.8 mg/dL (0.6-1.3); GFR - MDRD 76 (>89); GLUCOSE 101 mg/dL (74-104); HDL CHOLESTEROL 75 mg/dL; IRON 64 ug/dL (50-212); LDL CHOLESTEROL,CALCULATED 86 mg/dL; LDL/HDL RATIO 1.1 (<4.4); POTASSIUM 3.8 mmol/L (3.5-4.5); SODIUM 138 mmol/L (135-145); TOTAL IRON BINDING CAPACITY 504 ug/dL (250-450); TRANSFERRIN 360 mg/dL (203-362); TRIGLYCERIDES 129 mg/dL (48-352); VLDL CHOLESTEROL 26 mg/dL
[2023-10-04 19:52] LABS: THYROID STIMULATING HORMONE 1.73 uIU/mL (0.34-5.60)
[2023-10-04 19:57] LABS: FERRITIN 8.3 ng/mL (11.0-306.8)
[2023-10-04 20:53] LABS: ESTIMATED AVERAGE GLUCOSE 123 mg/dL (70-100); HEMOGLOBIN A1c% 5.9 % (4.27-6.07)
== END 2023-10-04 14:21 | disposition home or self-care (01) ==
LOC: LAB.N 14:20
PROVIDERS: ATTEND Internal Medicine
DX: E61.1 Iron deficiency (principal); Z79.899 Other long term (current) drug therapy; K21.9 Gastro-esophageal reflux disease without esophagitis; F41.9 Anxiety disorder, unspecified; F32.A Depression, unspecified
CPT/HCPCS: 36415; 80048; 80061; 82728; 83036; 83540; 83721; 84443; 84466; 85025

== ENCOUNTER 2023-10-20 11:13 | Outpatient (CLI) | payer MEDICARE, MEDICAID ==
--- NOTE | 2023-10-21 11:58 | Mammography Report ---
BILATERAL DIGITAL SCREENING MAMMOGRAM 3D/2D: 10/20/2023 CLINICAL: Routine screening. Comparison is made to exams dated: 04/07/2019 mammogram - [facility] and 01/05/2015 mammogram - [facility]. Both breasts are almost entirely fatty (category a/<25% glandular tissue). There are benign post operative findings in both breasts. No significant masses, calcifications, or other findings are seen in either breast. There has been no significant interval change. IMPRESSION: BENIGN There is no mammographic evidence of malignancy. A 1 year screening mammogram is recommended. Based on the Tyrer Cuzick model (a risk assessment model) the patient's lifetime risk is 5.2% and her 10 year risk is 1.1%. According to the ACR, ACS, and NCCN guidelines, an annual breast MRI exam marilee g with mammogram is recommended if the patients lifetime risk is 20% or greater. This exam was interpreted at Station ID: [id number]. NOTE: For mammograms, a report in lay terms will be sent to the patient. Approximately 15% of breast malignancies will not be visualized mammographically. In the management of a palpable breast mass, a negative mammogram must not discourage biopsy of a clinically suspicious lesion. Electronically Signed By: Caitlyn campbell/constance:10/20/2023 16:58:13 ACR BI-RADS Category 2: Benign Finding(s) 3342F PARENCHYMAL PATTERN: (F) - The breast(s) demonstrate(s) diffuse fatty replacement. BI-RADS CATEGORY: (2) - 2 Mammogram [id number] 1 year screening LATERALITY: (B)
== END 2023-10-20 11:14 | disposition home or self-care (01) ==
LOC: DI.N 11:13
PROVIDERS: ATTEND Internal Medicine
DX: Z12.31 Encounter for screening mammogram for malignant neoplasm of breast (principal)

== ENCOUNTER 2024-01-28 08:00 | Outpatient (CLI) | payer MEDICARE, MEDICAID | END 2024-01-28 08:01 | disposition home or self-care (01) | LOC: LAB.N 08:00 | PROVIDERS: ATTEND Physician Assistant | DX: J06.9 Acute upper respiratory infection, unspecified (principal) ==

== ENCOUNTER 2024-04-05 09:55 | Outpatient (CLI) | payer MEDICARE, MEDICAID | END 2024-04-05 09:56 | disposition home or self-care (01) | LOC: LAB 09:55 | PROVIDERS: ATTEND Nurse Practitioner | DX: N91.2 Amenorrhea, unspecified (principal) | CPT/HCPCS: 36415; 83001; 83002 ==

== ENCOUNTER 2024-05-11 14:42 | Outpatient (CLI) | payer MEDICARE, MEDICAID ==
--- NOTE | 2024-05-13 14:33 | Ultrasound Report ---
PROCEDURE: Pelvic w/Transvaginal INDICATIONS: ANOVULATORY AMENORRHEA TECHNIQUE: Real-time scanning was performed of the pelvic organs, with image documentation. Additional endovagi nal scanning was necessary due to incomplete visualization of the adnexal and endometrial structures by transabdominal scanning. COMPARISON: CT abdomen pelvis 07/19/2023. FINDINGS: Uterus: Uterus is anteverted and normal in size at 3.5 x 4.3 x 8.9 cm. The myometrium is mildly het erogeneous. The endometrium measures 5.7 mm in combined thickness. No uterine fibroids found. Ovaries: The right ovary measures 1.6 x 1.7 x 2.5 cm, with a calculated ovarian volume of 3.6 cc. T he left ovary measures 1.8 x 1.0 x 2.9 cm, with a calculated ovarian volume of 2.7 cc. The ovaries h ave a normal sonographic appearance. Less than 12 follicles can be seen in each ovary. No adnexal m asses are seen. No cystic lesions measuring greater than 3 cm. Other: No pathologic free abdominal or pelvic fluid. IMPRESSION: Normal pelvic ultrasound. Quality of visualization is mildly limited by body habitus. No evidence for presence of polycystic ovarian syndrome. Reviewed by: Mihai Trevizo MD on 05/13/2024 2:32 PM PDT Approved by: Mihai Trevizo MD on 05/13/2024 2:32 PM PDT Station ID: [id number]
== END 2024-05-11 14:43 | disposition home or self-care (01) ==
LOC: DI 14:42
PROVIDERS: ATTEND Nurse Practitioner
DX: N91.2 Amenorrhea, unspecified (principal)